=== PATIENT | male | born 1935 | race Caucasian/White ===

== ENCOUNTER 2017-06-16 17:16 | Inpatient (IN) | payer MEDICARE, OTHER ==
[~2017-06-16] VITALS: Ht 175.3 cm; Wt 86.2 kg
[2017-06-16] MEDS ORDERED: IOHEXOL 350 MG/ML 100 ML BTL (for Cath Lab) OTHER ONE (17:39)
[2017-06-16] MEDS ORDERED: IOHEXOL 350 MG/ML 50 ML BTL (for Cath Lab) OTHER ONE (17:39)
[2017-06-16] MEDS ORDERED: MORPHINE SULFATE 4 MG/ML INJ IV PRN (18:00)
[2017-06-16] MEDS ORDERED: SODIUM CHLOR 0.9% 1000 ML INJ 1,000 ML IV SCH (18:00)
[2017-06-16] MEDS ORDERED: ONDANSETRON HCL 4 MG/2 ML VIAL IV PUSH PRN (18:00)
[2017-06-16] MEDS ORDERED: LORazepam 2 MG/ML VIAL IV PRN (18:00)
[2017-06-16] MEDS ORDERED: ACETAMINOPHEN/HYDROcodone 325 MG/5 MG TAB PO PRN (18:00)
[2017-06-16 20:07] VITALS: BP 131/69; PULSE 80; RESP 18; TEMP 97.5; O2SAT 95
[2017-06-16] MEDS ORDERED: ASPIRIN EC 81 MG TABEC PO SCH (20:30)
--- NOTE | 2017-06-16 20:41 | EKG ---
Date Performed: 06/16/2017 Time Performed: 19:58:17 PTAGE: 81 years EKG: Sinus rhythm MODERATE INTRAVENTRICULAR CONDUCTION DELAY Possible Anteroseptal myocardial infarction Nonspecific S T and T wave abnormalities ABNORMAL ECG NO PREVIOUS TRACING DOCTOR: Naun Carlson Interpretating Date/Time 06/16/2017 20:39:06
--- NOTE | 2017-06-16 21:01 | MB ---
cc: LEOLA REYNOSO M.D. DATE OF CONSULTATION 06/16/[address]-segment changes after hernia repair today. HISTORY OF PRESENT ILLNESS The patient is a very pleasant 81-year-old white male with no major past medical history who underwent uncomplicated bilateral hernia repair today by Dr. Grove. Apparently after surgery ST-segment changes were seen on monitoring. 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 He denies any recent chest pains, shortness of breath, dizziness, syncope, near-syncope, palpitations, pedal edema, paroxysmal nocturnal dyspnea. At the present time he is resting comfortably feeling "great". PAST MEDICAL HISTORY None MEDICATIONS AT HOME None ALLERGIES NO KNOWN DRUG ALLERGIES. FAMILY HISTORY Noncontributory; there is no family history of cardiac disease. SOCIAL HISTORY The patient denies any history of alcohol, tobacco abuse. REVIEW OF SYSTEMS As in the history of present illness otherwise negative or noncontributory. He also denies headache, abdominal pain, melena, dyspepsia, bright red blood per rectum, cough, fevers. PHYSICAL EXAMINATION VITAL SIGNS: Blood pressure is pending. Heart rate 70, respirations 15. GENERAL: In general he is a well-developed, well-nourished white male in no acute distress. HEENT: On HEENT examination jugular venous pressure is normal. Carotid pulses are 2+ bilaterally and without bruits. LUNGS: Examination of the chest reveals unlabored respiratory effort with clear lung clemens. CARDIOVASCULAR: On cardiac examination he has a regular rhythm and rate without S3-S4 or murmur. ABDOMEN: On abdominal examination he has a soft, nontender abdomen. Bowel sounds are present. There is no definite hepatosplenomegaly. EXTREMITIES: Examination of extremities reveals no clubbing, cyanosis or edema. Peripheral pulses are normal throughout. LABORATORY DATA Includes troponin 2.43. EKG is pending. IMPRESSION Possible myocardial infarction in this 81-year-old white male with no major past medical history status post inguinal hernia repair today. At this time the patient is completely asymptomatic. He has no coronary artery disease risk factors except for advanced age. EKG is pending. By exam. There is no definite evidence for congestive heart failure. He apparently has no history of renal insufficiency. RECOMMENDATIONS 1. Transfer the patient to a monitored cardiac floor. 2. Initiate beta cristine and DEVIKA inhibitor therapy as well as daily aspirin if okay from a surgical standpoint. 3. Check a 2-D echo to assess his left ventricular function. 4. Await the EKG. 5. Check serial cardiac enzymes; consider cardiac catheterization in the next two days. Leola Reynoso MD GHCatia/KK /7:56 PM /8:52 PM MTDD
[2017-06-16] MEDS: CARVEDILOL 3.125 MG TAB PO SCH (21:19)
[2017-06-16 22:23] LABS: CREATINE KINASE 257 U/L (39-308)
[2017-06-16 22:40] LABS: CKMB 20.5 NG/ML (0.5-3.6)
[2017-06-16 23:28] VITALS: PULSE 77
[2017-06-17] VITALS (17 sets, daily range): BP systolic 117–137; BP diastolic 61–81; PULSE 61–81; RESP 16–18; TEMP 96.7–98.7; O2SAT 95–98
[2017-06-17] MEDS: SODIUM CHLOR 0.9% 1000 ML INJ 1,000 ML IV SCH ×2 (08:08→17:52)
--- NOTE | 2017-06-17 08:12 | PD.CARD.PN ---
Subjective Subjective Remarks No CP, dyspnea, dizziness, palpitations. Objective Medications Item Value Date Time Enalapril Maleate 2.5 mg 06/17/17 0900 (Vasotec) DAILY/PO Carvedilol 3.125 mg 06/16/172099 (Coreg) Q12HR/PO 06/16/172118 Item Value Date Time Enalapril Maleate 2.5 mg 06/17/17 0900 (Vasotec) DAILY/PO Carvedilol 3.125 mg 06/16/172099 (Coreg) Q12HR/PO 06/16/172118 Current Medications Medications (Trade) Dose Ordered Sig/Una Route Start Time Stop Time Status Last Admin (Zofran Inj) 4 mg Q6H PRN IV PUSH 06/16/17 18:00 (Ativan Inj) 1 mg Q6H PRN IV 06/16/17 18:00 (Gilbert 5-325 Mg) 1 tab Q4H PRN PO 06/16/17 18:00 (Morphine Inj) 3 mg Q2H PRN IV 06/16/17 18:00 Sodium Chloride 1,000 ml @ 0 mls/hr Q0M IV 06/16/17 18:00 (Flu (Quadrivalent) Vaccine Inj) 0.5 ml ONCE ONCE IM 06/17/17 10:00 06/17/17 10:01 (Pneumovax-23 Inj) 25 mcg ONCE ONCE IM 06/17/17 10:00 06/17/17 10:01 (Coreg) 3.125 mg Q12HR PO 06/16/17 21:00 06/16/17 21:19 (Vasotec) 2.5 mg DAILY PO 06/17/17 09:00 (Ecotrin Ec) 81 mg DAILY PO 06/16/17 20:30 Future Hold Vital Signs / I&O Vital Signs Date Time Temp Pulse Resp B/P (MAP) Pulse Ox O2 Delivery O2 Flow Rate FiO2 06/17/17 04:00 77 06/17/17 00:00 96.9 81 18 126/61 (82) 95 06/16/17 23:28 77 06/16/17 20:07 97.5 80 18 131/69 (89) 95 I/O 06/16/17 06/16/17 06/16/17 06/17/17 06/17/17 06/17/17 07:00 15:00 23:00 07:00 15:00 23:00 Output Total 450 ml Balance -450 ml Output Urine Total 450 ml Bladder Scan Volume Amount 298 ml Physical Exam GENERAL: Well developed, well nourished. No acute distress. HEENT: Jugular venous pressure is normal. CHEST: Lungs clear to auscultation bilaterally. Unlabored respiratory effort. CARDIAC: Regular rate and rhythm without S3, S4, or murmur. ABDOMEN: Soft, nontender, no hepatosplenomegaly. Bowel sounds present. EXTREMITIES: No clubbing, cyanosis, or edema. Laboratory Laboratory Tests Test 06/16/17 18:33 Total Creatine Kinase 257 U/L Creatine Kinase MB 20.5 NG/ML Troponin I 2.43 NG/ML Assessment and Plan Problem List: (1) Non-ST elevation NM (NSTEMI) ICD Codes: I21.4 - Non-ST elevation (NSTEMI) myocardial infarction Status: Acute Plan: Stable overnight. Cardiac enzymes clearly consistent with NSTEMI. Repeat enzymes pending. Patient remains completely asymptomatic. Discussed at great length with patient and his implications of the abnormal enzymes, high likelihood of underlying severe CAD, and my recommendation for further evaluation with a heart catheterization. Nature of procedure, risks outlined. REC cath today, though can hold off if from a surgical standpoint better to wait to administer antiplatelet/anticoagulation drugs needed for coronary stenting continue beta cristine, DEVIKA-I, increase doses await 2D echo Code Status full code Discussed Condition With patient and , at length Shoaib Berry MD Jun 17, 2017 08:12
[2017-06-17] MEDS ORDERED: diphenhydrAMINE HCL 50 MG CAP PO SCH (08:15)
[2017-06-17] MEDS ORDERED: DIAZEPAM 10 MG TAB PO SCH (08:15)
[2017-06-17] MEDS ORDERED: ASPIRIN 325 MG TAB PO SCH (08:15)
[2017-06-17] MEDS: ENALAPRIL MALEATE 2.5 MG TAB PO SCH (09:00)
[2017-06-17] MEDS: CARVEDILOL 3.125 MG TAB PO SCH ×2 (09:09→21:08)
[2017-06-17] MEDS ORDERED: INFLUENZA VIRUS VACCINE (QUADRIVALENT) 0.5 ML SYR IM ONE (10:00)
[2017-06-17] MEDS ORDERED: PNEUMOCOCCAL POLYVALENT INJ 25 MCG/0.5 ML SYR IM ONE (10:00)
[2017-06-17 13:25] LABS: BICARBONATE 22.4 MEQ/L (21.0-32.0); POTASSIUM 3.9 MEQ/L (3.5-5.1)
[2017-06-17 13:32] LABS: APTT (PATIENT) 21.1 SEC (24.3-30.1); INTERNATIONAL NORMALIZED RATIO 1.1 RATIO; PROTHROMBIN TIME - PATIENT 11.9 SEC (9.8-11.6)
[2017-06-17] MEDS ORDERED: NITROGLYCERIN INJ 5 ML ONE (13:36)
[2017-06-17] MEDS ORDERED: HEPARIN SODIUM - IV 10,000 UNITS/10 ML VIAL ONE (13:36)
[2017-06-17] MEDS ORDERED: MIDAZOLAM HCL 2 MG/2 ML VIAL ONE (13:36)
[2017-06-17] MEDS ORDERED: VERAPAMIL HCL 5 MG/2 ML VIAL ONE (13:36)
[2017-06-17] MEDS ORDERED: HEPARIN-NS/PF INJ 1,000 ML ONE ×2 (13:37→14:48)
[2017-06-17 13:45] LABS: CKMB 18.6 NG/ML (0.5-3.6)
--- NOTE | 2017-06-17 15:13 | HHI.PR ---
Subjective Subjective Notes Resting in bed Going for heart cath today at 1:45 Objective Vitals/I&O Vital Signs Date Time Temp Pulse Resp B/P (MAP) Pulse Ox O2 Delivery O2 Flow Rate FiO2 06/17/17 13:02 66 06/17/17 11:28 98.7 16 117/66 (83) 96 Labs Laboratory Tests Test 06/16/17 18:33 06/17/17 12:25 Total Creatine Kinase 257 404 Creatine Kinase MB 20.5 18.6 Troponin I 2.43 5.58 Prothrombin Time 11.9 Prothromb Time International Ratio 1.1 Activated Partial Thromboplast Time 21.1 Blood Urea Nitrogen 22 Creatinine 0.85 Random Glucose 97 Calcium Level 8.4 Sodium Level 140 Potassium Level 3.9 Chloride Level 108 Carbon Dioxide Level 22.4 Anion Gap 10 Estimat Glomerular Filtration Rate 87 Creatine Kinase MB % 4.6 Cardiovascular: Regular Lungs: Clear Abdomen: Other (lap sites c/d/i ) Extremities: No edema A/P Assessment and Plan 81 year old male POD1 laparoscopic bilateral inguinal hernia in outpatient surgery center; post op EKG changes -Cardiology following -Going for heart cath today -NPO Attending Note - Dr. Grove Discussed above with patient and at 12 noon. Had elevated troponins consistent with NSTEMI. He has had no chest pain or EKG changes. Steristrips dry and intact; minimal pain from hernia repair. Discussed with both Dr. Berry (cardiology) and Dr. Cedeno (CT surgery) this evening. 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 Will keep in house while workup continues. Will feed tonight and keep IVF going to protect renal function. The exam, history, and the medical decision-making described in the above note were completed with the assistance of the mid-level provider. I reviewed and agree with the findings presented. I attest that I had a [id number] encounter with the patient on the same day, and personally performed and documented my assessment and findings in the medical record. Ellen Leach Jun 17, 2017 15:13 Tim Grove MD Jun 17, 2017 19:04
--- NOTE | 2017-06-17 15:23 | CATHPROC ---
[facility] HIS Report Study Information Study Number Admission Scheduled Start Study Start [id number] Jun 16 2017 5:38PM 06/17/2017 Jun 17 2017 1:26PM [place] [facility] Cardiac Catheterization Admit Source Facility Department Other [facility] - Manager Strategy & Account Physician and Clinical Staff Initial Shoaib Tejada Registered Nurse Obstetrics Tarsha Sanchez BSN Other cathlab, cathlab Recorder Foreign Castellano RCIS(BS) Carlos Daniels RCIS(BS) Procedures Performed Procedure Location (Site) Vessel Name Angiogram LV Asc. Aorta (A) Angiogram LV LV Ventricle Coronary Angiograms LCA Left Coronary Coronary Angiograms RCA Right Coronary L Heart Cath Wire insertion Radial (right) Radial Art. Equipment Time Hematologist Oncologist Description Size Mfg Part Number Used/Scraped TRANSDUCER, TRUWAVE [id number] 14:07 JACOBS ERICKSON * Used W/STOCKCOCK *[id number] TRANSDUCER, TRUWAVE [id number] 14:51 JACOBS ERICKSON * Used W/STOCKCOCK *[id number] *[id number] *[id number] *[id number] WIRE, HYDROSTEER 150CM [id number] 15:01 DAIG/[employer]. [employer] 150CM Used ANGLED GLIDE *[id number] WIRE, HYDROSTEER 150CM [id number] 14:09 DAIG/[employer] 150CM Used ANGLED GLIDE *[id number] 871251 14:07 MALLINCKRODT SYRINGE, ANGIOMAT 150ML 150ML *[id number] Used 2SUB [id number] 14:51 MALLINCKRODT SYRINGE, ANGIOMAT 150ML 150ML *[id number] Used 2SUB MEDICAL CONCEPT DRAPE, RADIAL FEMORAL FULL 14:51 * D2355 *[id number] Used DEVELOPMENT BODY MEDICAL CONCEPT DRAPE, RADIAL FEMORAL FULL 14:07 * D2355 *[id number] Used DEVELOPMENT BODY [id number] 14:07 MEDLINE INDUSTRIES PACK, CCL CUSTOM * Used *[id number] 14:51 MEDLINE INDUSTRIES PACK, CCL CUSTOM * Used *[id number] 14:07 MEDLINE INDUSTRIES SUPPORT, ARTERIAL ADULT 80173 *[id number] Used 14:51 MEDLINE INDUSTRIES SUPPORT, ARTERIAL ADULT 61275 *[id number] Used [id number] 14:51 MEDLINE PACER PEN, SKIN DUAL W/ RULER * Used *[id number] 14:07 MEDLINE PACER PEN, SKIN DUAL W/ RULER * Used *[id number] BAND, RADIAL COMPRESSION TR [id number] 15:14 [place] 29CM Used LARGE 29 *[id number] SHEATH, FR6 RADIAL PRELUDE 13:32 [facility] Eqvilibria FR 6 [id number] Used EASE 11CM [id number] 14:07 YR.MRKT MEDICAL WIRE, EXCHANGE 260CM 3MMJ 260CM Used *[id number] 14:51 YR.MRKT MEDICAL WIRE, EXCHANGE 260CM 3MMJ 260CM Used *[id number] 14:07 NAMIC MANIFOLD, 4 PORT * Used *[id number] [id number] 14:51 NAMIC MANIFOLD, 4 PORT * Used *9438818 [id number] 15:02 NAMIC TUBING, HIGH PRESSURE 48" 48" Used *0772562 14:51 [employer]COMED OMNIPAQUE, 350 MG, 150ML 150ML [id number] Used 15:09 [employer]COMED OMNIPAQUE, 350 MG, 150ML 150ML [id number] Used 14:07 [employer]COMED OMNIPAQUE, 350 MG, 150ML 150ML [id number] Used [id number] 14:51 [employer] MEDICAL BLANKET,WARM AIR CCL * Used *[id number] [id number] 14:07 [employer] MEDICAL BLANKET,WARM AIR CCL * Used *[id number] CATHETER, FR5 OPTITORQUE [id number] 14:08 [employer] MEDICAL FR 5 Used RADIAL TIG 4.0 *[id number] Equipment Model, Serial, Lot Number and Expiration Data Description Model Number Serial Number Lot Number Expiration Date WIRE, HYDROSTEER 150CM [id number] 02-06-2020 ANGLED GLIDE WIRE, HYDROSTEER 150CM [id number] 03-08-2020 ANGLED GLIDE History: Current Medications Medication Dosage/Unit Route Frequency Last Date/Time Taken Beta Kennedy ASA History: Allergies Allergy Reaction No Known Allergies History: Risk Factors Family History of Hypertension Dyslipidemia Previous NM Previous Heart Failure Premature CAD No No No No No Prior Valve Prior PCI Prior CABG Surgery No No No Cerebrovascular Peripheral Artery Chronic Lung On Dialysis Diabetes Disease Disease Disease No No No No No History: Stress Tests Stress or Imaging Studies Performed No History: Other Current Smoker No Labs Hgb (g/dl) 11.60-17.00 Not Drawn Glucose (mg/dl) BUN (mg/dl) Creatinine (mg/dl) BUN:Creatinine (1:x) 74.00-106.00 7.00-18.00 0.50-1.30 10.00-20.00 97 22 0.8 27.5 Na (meq/l) K (meq/l) Cl (meq/l) CO2 (mmol/L) Ca (mg/dl) 136.00-145.00 3.50-5.10 98.00-107.00 21.00-32.00 8.50-10.10 140 3.9 108 22.4 8.4 INR (PTT:PT) 0.90-1.10 1.1 Troponin I (ng/ml) CPK (u/l) CPK-MB (ng/ML) 0.02-0.05 26.00-308.00 0.50-3.60 2.4 257 20.5 Medication Medication Total Dose (Bolus/Oral) Medication Total Dosage/Unit 1% XYLOCAINE 3 mL FENTANYL 50 mcg RADIAL COCKTAIL 5 mL (Bolus) VERSED 2 mg Medications (Bolus/Oral) Medication Time Given Dosage/Unit Administered By Reason VERSED 06/17/2017 2:04:00 PM 2 mg Tarsha Sanchez 2 mg VERSED given in lab by Tarsha Sanchez BSN in Right Wrist via Peripheral IV. Ordered by Shoaib Christopher. FENTANYL 06/17/2017 2:04:08 PM 50 mcg Tarsha Sanchez 50 mcg FENTANYL given in lab by Tarsha Sanchez BSN in Right Wrist via Peripheral IV. Ordered by Shoaib Berry. 1% XYLOCAINE 06/17/2017 2:05:06 PM 3 mL Shoaib Berry 3 mL 1% XYLOCAINE given in lab by Shoaib Berry in Right Radial via Subcutaneous. Ntg 200mcg Verapamil 2.5mg Heparin RADIAL COCKTAIL 06/17/2017 2:06:54 PM 5 mL (Bolus) Shoaib Berry 2500U 5 mL (Bolus) RADIAL COCKTAIL given in lab by Shoaib Berry in Right Radial via Radial. Using [Solution Name]. Reason: Ntg 200mcg Verapamil 2.5mg Heparin 2500U. Medication (Drip) Medication Time Given Dosage/Unit Concentration/Unit Diluent (ml) Solution IV Solutions 06/17/2017 1:31:09 PM 0 mL (IV) 500 NaCl .9 Patient arrived on IV Solutions in Right Wrist via Peripheral IV. Pump/Drip Flow = 20 ml/hr using NaC l .9. Ordered by Shoaib Berry. Initial Case Assessment Cardiovascular HR Rhythm NIBP Chest Pain 65 nsr 147/78 0 Edema Present Skin color Skin None Normal Warm Dry Circulatory - Right Pulses Dorsalis Pedis Femoral Radial 2 2 2 Scale (0,1,2,3,4,d) Scale (0,1,2,3,4,d) Neurological State Oriented to time-place- Alert Moves all extremities person Respiration - General Respiration Rate SpO2 (%) (B/min) 15 95 Final Case Assessment Cardiovascular HR Rhythm NIBP Chest Pain 65 nsr 106/55 0 Edema Present Skin color Skin None Normal Warm Dry Circulatory - Right Pulses Dorsalis Pedis Femoral Radial 2 2 2 Scale (0,1,2,3,4,d) Scale (0,1,2,3,4,d) Neurological State Oriented to time-place- Alert Moves all extremities person Respiration - General Respiration Rate SpO2 (%) (B/min) 15 93 Chronological Log Time Study Chronological Log 13:28:32 Patient arrived via Bed. 13:28:45 Patient Name, D.O.B, / Armband Verified By R.N. 13:30:51 Consent signed by the physician and the patient and verified by the Manager Strategy & Account staff. 13:30:52 Pre-op and post- op instructions given; patient acknowledges understanding of instructions. 13:30:53 Verbal Stimulation=2 Physical Stimulation=2 Airway=2 Respiration=2 TOTAL=8. (0=absent, 1=li mited, 2=present) 13:30:54 Presedation assessment performed by Manager Strategy & Account RN. 13:30:54 Allens test performed on the right radial and ulnar artery. POSITIVE. 13:31:02 Immediate Presedation assesment performed by physician. 13:31:03 Skin Breakdown- none per patient 13:31:03 Patient has been NPO for More than 6Hrs. 13:31:07 Patient Warmer Placed on the Table. 13:31:08 Willie Prominences Protected 13:31:09 A # 20 IV was noted in the Wrist (right). Grade = 0 Patient arrived on IV Solutions in Right Wrist via Peripheral IV. Pump/Drip Flow = 20 ml/hr usi ng NaCl .9. Ordered by 13:31:09 Shoaib Berry. 13:31:10 History and physical on the chart or being dictated. Vitals capture started with the following parameters, Patient=Adult, Interval=5 min, Initial Pr dcamcv=980 mmHg, 13:35:17 Deflation Rate=5 mmHg, Cuff placed on Left Arm 13:35:18 Reference ECG taken Assessment: Initial Case, HR=65 BPM, Rhythm=nsr, VVEQ=379/78 mmhg, Chest Pain=0, Edema=None, Co ashleigh=Normal, Skin = Warm, Dry 13:35:20 Right Pulses: Kam Ped=2, Femoral=2, Radial=2 Neurological: State=Alert, Ox3, LABOY Respiration: Resp=15 B/min, SpO2=95 % 13:36:38 HR=69 bpm, WMRG=509/78 mmhg, SpO2=96 %, Resp=14 B/min, Pain=0, Deedee=10, Jerome=2 13:41:47 HR=60 bpm, WDSU=753/70 mmhg, SpO2=96.0 %, Resp=15 B/min, Pain=0, Deedee=10, Jerome=2 13:45:59 HR=61 bpm, QTQU=427/72 mmhg, SpO2=96.0 %, Resp=11 B/min, Pain=0, Deedee=10, Jerome=2 13:49:04 Right Radial and groin(s) prepped with 2% chlorhexidine, and draped after a 3 min. waiting time. 13:51:00 HR=63 bpm, EBTF=148/78 mmhg, SpO2=97.0 %, Resp=19 B/min, Pain=0, Deedee=10, Jerome=2 13:52:30 MD paged 13:53:46 Pressure channel 1 zeroed. 13:56:01 HR=62 bpm, CCOL=019/73 mmhg, SpO2=96.0 %, Resp=15 B/min, Pain=0, Deedee=10, Jerome=2 13:57:12 MD responded 14:01:00 HR=62 bpm, DPCV=075/72 mmhg, SpO2=96.0 %, Resp=16 B/min, Pain=0, Deedee=10, Jerome=2 14:02:14 MD arrived. 14:02:17 Contrast Scanned 14:02:18 Immediate Presedation assesment performed by physician. 14:04:00 2 mg VERSED given in lab by Tarsha Sanchez BSN in Right Wrist via Peripheral IV. Orde red by Shoaib Berry. 14:04:08 50 mcg FENTANYL given in lab by Tarsha Sanchez BSN in Right Wrist via Peripheral IV. Ordered by Shoaib Berry. Time Out. Correct patient, correct procedure, correct physician, power injector not loaded with contrast with surgical 14:04:17 team present. Time Out Concurred by MD and individual staff in procedure. 14:04:28 Case Start 14:04:30 Verbal Stimulation=2 Physical Stimulation=2 Airway=2 Respiration=2 TOTAL=8. (0=absent, 1=li mited, 2=present) 14:05:06 3 mL 1% XYLOCAINE given in lab by Shoaib Berry in Right Radial via Subcutaneous. 14:05:57 HR=69 bpm, WNKQ=018/75 mmhg, SpO2=93.0 %, Resp=16 B/min, Pain=0, Deedee=10, Jerome=2 14:06:37 Access site was Right Radial Artery. A SHEATH, FR6 RADIAL PRELUDE EASE 11CM FR 6 was advanced into the Radial (right) using the Perc utaneous 14:06:44 technique. 5 mL (Bolus) RADIAL COCKTAIL given in lab by Shoaib Berry in Right Radial via Radial. Using [So lution Name]. Reason: 14:06:54 Ntg 200mcg Verapamil 2.5mg Heparin 2500U. A CATHETER, FR5 OPTITORQUE RADIAL TIG 4.0 FR 5 was advanced over a wire. OMNIPAQUE, 350 MG, 150 ML 150ML 14:07:42 was used for injections. 14:09:24 A WIRE, HYDROSTEER 150CM ANGLED GLIDE 150CM was inserted via Radial (right). 14:10:18 Wire removed Recorded Pressure: Ao, HR=71, Condition=Condition 1 14:10:22 (Aorta) Ao 100/53/76 14:10:31 The LCA was injected and visualized at various angles. OMNIPAQUE, 350 MG, 150ML 150ML used . 14:10:58 HR=65 bpm, LZNO=662/63 mmhg, SpO2=91.0 %, Resp=15 B/min, Pain=0, Deedee=10, Jerome=2 14:12:12 The RCA was injected and visualized at various angles. OMNIPAQUE, 350 MG, 150ML 150ML used . After removing the current catheter a JL 3.5 INFINITI CATHETER FR 6 was advanced over a WIRE, E XCHANGE 260CM 14:13:11 3MMJ 260CM. 14:15:42 The LCA was injected and visualized at various angles. OMNIPAQUE, 350 MG, 150ML 150ML used . 14:15:57 HR=66 bpm, KHIH=985/62 mmhg, SpO2=88.0 %, Resp=18 B/min, Pain=0, Deedee=10, Jerome=2 14:20:56 HR=66 bpm, TUPT=288/70 mmhg, SpO2=88.0 %, Resp=15 B/min, Pain=0, Deedee=10, Jerome=2 14:23:28 Catheter was removed 14:26:01 HR=71 bpm, EJLK=961/65 mmhg, SpO2=94.0 %, Resp=17 B/min, Pain=0, Deedee=10, Jerome=2 14:26:23 XRAY malfunction. Rebooting xray system. 14:30:58 HR=64 bpm, XEGV=211/64 mmhg, SpO2=91.0 %, Resp=19 B/min, Pain=0, Deedee=10, Jerome=2 14:36:01 HR=62 bpm, PPRD=894/61 mmhg, SpO2=93.0 %, Resp=19 B/min, Pain=0, Deedee=10, Jerome=2 14:39:53 xray not functioning, moving patient to lab 5. 14:39:55 Sterile dressing applied to site 14:41:00 HR=66 bpm, PCAK=058/74 mmhg, SpO2=95 %, Resp=14 B/min, Pain=0, Deedee=10, Jerome=2 14:42:05 Vitals capture stopped. 14:42:15 Patient moved to stretcher 14:44:44 Patient arrived via Bed. 14:44:48 Patient Name, D.O.B, / Armband Verified By R.N. 14:44:49 Consent signed by the physician and the patient and verified by the Manager Strategy & Account staff. Vitals capture started with the following parameters, Patient=Adult, Interval=5 min, Initial Pr useoeb=808 mmHg, 14:47:57 Deflation Rate=5 mmHg, Cuff placed on Right Arm 14:47:58 Reference ECG taken 14:48:35 HR=73 bpm, VKCA=207/69 mmhg, SpO2=94.0 %, Resp=17 B/min, Pain=0, Deedee=10, Jerome=2 14:49:59 Right Radial prepped with 2% chlorhexidine, and draped after a 3 min. waiting time. 14:53:39 HR=65 bpm, GRON=593/70 mmhg, SpO2=97.0 %, Resp=20 B/min, Deedee=10, Jerome=2 14:57:55 Pressure channel 1 zeroed. Time Out. Correct patient, correct procedure, correct physician, power injector loaded with con trast with surgical team 14:58:19 present. Time Out Concurred by MD and individual staff in procedure. 14:58:28 Case Start 14:58:40 HR=62 bpm, MEEM=740/70 mmhg, SpO2=97.0 %, Resp=19 B/min, Pain=0, Deedee=10, Jerome=2 A JL 3.5 INFINITI CATHETER FR 6 was advanced over a wire. OMNIPAQUE, 350 MG, 150ML 150ML was us ed for 15:00:26 injections. 15:00:51 A WIRE, HYDROSTEER 150CM ANGLED GLIDE 150CM was inserted via Radial (right). 15:03:39 HR=63 bpm, KOSP=995/64 mmhg, SpO2=96.0 %, Resp=17 B/min, Pain=0, Deedee=10, Jerome=2 15:05:00 Wire removed 15:05:00 The LCA was injected and visualized at various angles. OMNIPAQUE, 350 MG, 150ML 150ML used . After removing the current catheter a PIGTAIL STR INFINITI CATHETER FR 6 was advanced over a WI RE, EXCHANGE 15:07:00 260CM 3MMJ 260CM. 15:08:28 The LV was injected at 10 cc/sec for a total of 30. OMNIPAQUE, 350 MG, 150ML 150ML used. Recorded Pressure: LV, HR=58, Condition=Condition 1 15:08:38 (Left Ventricle) LV 114/8/18 15:08:40 HR=58 bpm, GBQX=502/55 mmhg, SpO2=95.0 %, Resp=16 B/min, Pain=0, Deedee=10, Jerome=2 Recorded Pressure: LV, Ao, HR=53, Condition=Condition 1 15:10:36 (Left Ventricle) LV 127/-2/34, (Aorta) Ao 116/44/75 15:10:52 The Asc. Aorta (A) was injected at 20 cc/sec for a total of 40. OMNIPAQUE, 350 MG, 150ML 15 0ML used. 15:11:48 Catheter was removed 15:11:57 Case End Assessment: Final Case, HR=65 BPM, Rhythm=nsr, YUSD=437/55 mmhg, Chest Pain=0, Edema=None, [place] r=Normal, Skin = Warm, Dry 15:12:02 Right Pulses: Kam Ped=2, Femoral=2, Radial=2 Neurological: State=Alert, Ox3, LABOY Respiration: Resp=15 B/min, SpO2=93 % 15:12:32 Radial Compression Device Used. 12 mLs of air placed in closure device. Affected hand 95 % O2 saturation. 15:12:41 Sterile dressing applied to site 15:12:41 No case complications noted. 15:12:42 Cine recording checked. 15:12:42 Bedside Report will be given. 15:12:44 Contrast Scanned 15:12:44 Verbal Stimulation=2 Physical Stimulation=2 Airway=2 Respiration=2 TOTAL=8. (0=absent, 1=li mited, 2=present) 15:12:50 A Left Heart Cath was performed. 15:14:12 HR=67 bpm, FTDG=095/73 mmhg, SpO2=98.0 %, Resp=15 B/min, Pain=0, Deedee=10, Jerome=2 15:18:40 HR=62 bpm, NVQI=283/78 mmhg, SpO2=96.0 %, Resp=12 B/min, Pain=0, Deedee=10, Jerome=2 15:19:29 Vitals capture stopped. 15:19:41 Patient moved to stretcher End Study - Contrast Media Used In Study Contrast Total Opened (mL) Total Used (mL) Total Wasted (mL) Omnipaque 160 160 0 End Study - Maximum Contrast Load Max Contrast Load (mL) 875.0 End Study - Radiation Exposure Fluoro Time (minutes) 3.2 End Study - Patient Disposition Complications Transferred To Interventional Outcome No Telemetry Bed No attempt made
[2017-06-17 15:34] LABS: AUTOMATED NEUTROPHIL # 9.1 TH/MM3 (1.8-7.7); BASOPHIL % 0.1 % (0.0-2.0); HEMATOCRIT 39.4 % (39.0-51.0); HEMO FLAGS DIFF FINAL; LYMPH % 9.2 % (9.0-44.0); MEAN CELL VOLUME 95.6 FL (80.0-100.0); MEAN CORPUSCULAR HGB CONC 33.5 % (32.0-36.0); MONO % 8.5 % (0.0-8.0); NEUT % 82.2 % (16.0-70.0); PLATELET COUNT 129 TH/MM3 (150-450); RED BLOOD COUNT 4.13 MIL/MM3 (4.50-5.90)
--- NOTE | 2017-06-17 16:21 | ECHRPT ---
Indication: WI CONCLUSIONS Mildly dilated left ventricle. Wall thickness is normal. The left ventricular systolic function is severely reduced with an estimated ejection fraction in th e range of 30-35%. There is global left ventricular dysfunction. Mitral annular calcification is present. Trace mitral valve regurgitation. Trace aortic valve regurgitation. Aortic valve sclerosis is present. BP: / HR: Rhythm: MEASUREMENTS (Male / Female) Normal Values Technical Quality: 2D ECHO LV Diastolic Diameter PLAX 5.1 cm 4.2 - 5.9 / 3.9 - 5.3 cm LV Systolic Diameter PLAX 4.4 cm IVS Diastolic Thickness 1.0 cm 0.6 - 1.0 / 0.6 - 0.9 cm LVPW Diastolic Thickness 0.8 cm 0.6 - 1.0 / 0.6 - 0.9 cm LV Relative Wall Thickness 0.3 RV Internal Dim ED PLAX 2.6 cm LA Systolic Diameter LX 3.2 cm 3.0 - 4.0 / 2.7 - 3.8 cm DOPPLER AV Peak Velocity 105.0 cm/s AV Peak Gradient 4.4 mmHg Mitral E Point Velocity 58.9 cm/s Mitral A Point Velocity 75.0 cm/s Mitral E to A Ratio 0.8 TR Peak Velocity 102.0 cm/s TR Peak Gradient 4.2 mmHg FINDINGS LEFT VENTRICLE Mildly dilated left ventricle. Wall thickness is normal. The left ventricular systolic function is severely reduced with an estimated ejection fraction in th e range of 30-35%. There is global left ventricular dysfunction. RIGHT VENTRICLE Normal right ventricular size and systolic function. LEFT ATRIUM The left atrial size is normal. RIGHT ATRIUM The right atrial size is normal. ATRIAL SEPTUM Normal atrial septal thickness without atrial level shunting by limited color doppler interrogation. AORTA The aortic root and proximal ascending aorta are normal in size on limited imaging. MITRAL VALVE Mitral annular calcification is present. Trace mitral valve regurgitation. AORTIC VALVE Trace aortic valve regurgitation. Aortic valve sclerosis is present. TRICUSPID VALVE Structurally normal tricuspid valve. No tricuspid valve stenosis or regurgitation. PULMONARY VALVE The pulmonary valve is not well visualized. VESSELS The inferior vena cava is normal in size. PERICARDIUM No pericardial effusion. Dawood Epperson MD (Electronically Signed) Final Date:17 June 2017 16:21
--- NOTE | 2017-06-17 17:17 | RADRPT ---
EXAM DATE/TIME: 06/17/2017 16:25 [facility] COMPARISON: No previous studies available for comparison. INDICATIONS : Evaluate for pneomonia, pneumothorax, or any other communicable diseases. MEDICAL HISTORY : None. SURGICAL HISTORY : None. ENCOUNTER: Initial ACUITY: 1 day PAIN SCORE: 0/10 LOCATION: Bilateral chest FINDINGS: A single view of the chest demonstrates the lungs to be symmetrically aerated without evidence of mas s, infiltrate or effusion. The cardiomediastinal contours are unremarkable. Osseous structures are intact. CONCLUSION: No acute disease. Jigar Whitney MD on June 17, 2017 at 17:16 Board Certified Radiologist. This report was verified electronically.
--- NOTE | 2017-06-17 18:46 | MA ---
cc: LEOLA REYNOSO M.D. DATE 06/17/17 PROCEDURE Left heart catheterization, selective coronary angiography, left ventriculography, aortic root injection. PROCEDURE NOTE The patient was brought to the cardiac catheterization laboratory in a fasting state after having signed informed consent. The right radial region was prepped and draped as per policy and anesthetized with 1% lidocaine. Arterial access was obtained via the right radial artery and a 6-Austrian sheath placed. Coronary arteriography was performed using a [place] catheter to engage the right coronary and Daniel left 3.5 to engage the left main. Aortic root injection and left ventriculography was done using a standard 6-Austrian pigtail. There were no apparent immediate complications. A radial artery compression band was applied to his right wrist at the end of the case to achieve good hemostasis. HEMODYNAMIC RESULTS Left ventricle 120 with an end-diastolic pressure of 20. Aorta 116/44 with a mean of 75. There was no significant transvalvular aortic gradient on pullback of the pigtail catheter. CORONARY ARTERIOGRAPHY The left main appears to be a short vessel with mild distal tapering possibly with up to 15% distal stenosis. The left anterior descending has somewhat eccentric up to 80% stenosis proximally with post stenotic dilatation. The mid-LAD has diffuse disease up to 25% severity. The distal LAD also has a region of up to 30% stenosis. The LAD gives rise to two small to medium sized diagonals, the first of which has mild disease, the second of which probably has at least 60% ostial stenosis. We did do aortic root injection to confirm total occlusion of the left circumflex and verify that it is not originating from an anomalous position. Both coronary arteriography and aortic root injection confirm total occlusion of the left circumflex. There may be late faint filling of a small obtuse marginal seen on an [place] cranial shot. The right coronary artery is totally occluded proximally. There are numerous bridging collaterals supplying the mid to distal vessel which has overall normal flow. LEFT VENTRICULOGRAPHY Contrast injection of the left ventricle reveals global hypokinesis. Ejection fraction is estimated at 30-35%. CONCLUSION 1. Severe three-vessel coronary artery disease. 2. Right dominant system. 3. Status post aortic root injection. 4. Reduced left ventricular systolic function with ejection fraction estimated at 30-35%. DISCUSSION The patient will be referred for bypass surgery. Bypass grafts could be placed to the LAD and right coronary. Consideration could also be made towards grafting of the second diagonal. The left circumflex is probably too small and diseased for grafting. MD YANCY Arreaga/ELIZABETH /3:24 PM /6:43 PM DONALD
--- NOTE | 2017-06-17 20:20 | RADRPT ---
EXAM DATE/TIME: 06/17/2017 19:06 [facility] COMPARISON: No previous studies available for comparison. INDICATIONS : Pre op cardiac surgery. MEDICAL HISTORY : Renal calculi. SURGICAL HISTORY : Bilateral inguinal hernia repair 06/16/17. ENCOUNTER: Initial ACUITY: 1 day PAIN SCORE: 3/10 LOCATION: Bilateral legs. TECHNIQUE: Venous ultrasound of the left and right leg was performed from the inguinal ligament to the proximal calf. Real-time, color Doppler and spectral tracing, compression and augmentation techniques were us ed. FINDINGS: RIGHT LEG: There is normal compressibility of the deep venous system from the inguinal region to the proximal ca lf. No echogenic clot is seen in the lumen of the common femoral, femoral, popliteal, and posterior tibial veins. There is a normal response of the venous system to proximal and distal augmentation an d respiration. LEFT LEG: There is normal compressibility of the deep venous system from the inguinal region to the proximal ca lf. No echogenic clot is seen in the lumen of the common femoral, femoral, popliteal, and posterior tibial veins. There is a normal response of the venous system to proximal and distal augmentation an d respiration. CONCLUSION: Normal examination. Michael Bradford Jr., MD on June 17, 2017 at 20:18 Board Certified Radiologist. This report was verified electronically.
--- NOTE | 2017-06-17 20:21 | RADRPT ---
EXAM DATE/TIME: 06/17/2017 19:15 [facility] COMPARISON: No previous studies available for comparison. INDICATIONS : Pre op cardiac surgery. MEDICAL HISTORY : Renal calculi. SURGICAL HISTORY : Bilateral inguinal hernia repair 06/16/17. ENCOUNTER: Initial ACUITY: 1 day PAIN SCORE: 3/10 LOCATION: Bilateral legs. GREATER SAPHENOUS VEIN THIGH: PROXIMAL: Right 5 mm Left 6 mm MID: Right 4 mm Left 5 mm DISTAL: Right 4 mm Left 4 mm CALF: PROXIMAL: Right 4 mm Left 4 mm MID: Right 3 mm Left 3 mm DISTAL: Right 4 mm Left 4 mm FINDINGS: The venous system of the lower extremities are patent by color Doppler imaging. Measurements of the leg veins (in mm) are listed above. CONCLUSION: Patent greater saphenous veins bilaterally with measurements above. Michael Bradford Jr., MD on June 17, 2017 at 20:19 Board Certified Radiologist. This report was verified electronically.
--- NOTE | 2017-06-17 20:24 | RADRPT ---
EXAM DATE/TIME: 06/17/2017 19:36 [facility] COMPARISON: No previous studies available for comparison. INDICATIONS : Pre op cardiac surgery. MEDICAL HISTORY : Renal calculi. SURGICAL HISTORY : Bilateral inguinal hernia repair 06/16/17. ENCOUNTER: Initial ACUITY: 1 day PAIN SCORE: 3/10 LOCATION: Bilateral neck PEAK SYSTOLIC VELOCITIES (cm/sec): ICA/CCA RATIO: Right: 1.8 Left: 1.2 ICA: Right: 116 Left: 89 CCA: Right: 66 Left: 76 ECA: Right: 205 Left: 78 VERTEBRAL: Right: 45 antegrade Left: 45 antegrade Elevated flow velocities and ICA/CCA ratios have been found to correlate with increased degrees of vessel stenosis, calculated as percentage of diameter relative to a normal segment of distal ICA/CCA FINDINGS: RIGHT CAROTID: Calcified plaque involving the carotid bulb and proximal ICA with less than 50% stenosis of the proxi mal ICA by grayscale analysis. The waveforms are within normal limits. LEFT CAROTID: Calcified plaque involving the carotid bulb and proximal ICA. No significant stenosis is visualized. The waveforms are within normal limits. VERTEBRAL ARTERIES: Antegrade flow is seen in both vertebral arteries. MISCELLANEOUS: None. CONCLUSION: 1. Calcified plaque involving the carotid arteries bilaterally without hemodynamically significant st enosis involving either carotid. 2. Antegrade flow involving both vertebral arteries. Michael Bradford Jr., MD on June 17, 2017 at 20:20 Board Certified Radiologist. This report was verified electronically.
[2017-06-17 21:37] LABS: BLOOD, URINE NEG (NEG); COMMENT (UR) CULT NOT INDICATED; CULTURE IF INDICATED CULT NOT INDICATED; GLUCOSE,URINE NEG (NEG); KETONE, URINE NEG (NEG); MUCUS URINE FEW /lpf (OCC); NITRITE,URINE NEG (NEG); PH, URINE 6.5 (5.0-8.5); URINE COLOR YELLOW (YELLW/STRAW)
[2017-06-18] VITALS (25 sets, daily range): BP systolic 133–156; BP diastolic 72–94; PULSE 64–90; RESP 16–20; TEMP 97.6–99.1; O2SAT 94–97
[2017-06-18] MEDS: SODIUM CHLOR 0.9% 1000 ML INJ 1,000 ML IV SCH (03:52)
[2017-06-18 06:03] LABS: ANION GAP 10 MEQ/L (5-15); AST (GOT) 43 U/L (15-37); BICARBONATE 24.2 MEQ/L (21.0-32.0); BLOOD UREA NITROGEN 22 MG/DL (7-18); CHLORIDE 106 MEQ/L (98-107); GLOMERULAR FILTRATION RATE 82 ML/MIN (>89); POTASSIUM 3.8 MEQ/L (3.5-5.1); SODIUM (NA) 140 MEQ/L (136-145)
[2017-06-18 06:04] LABS: ALT (GPT) 23 U/L (12-78)
[2017-06-18 06:06] LABS: ALKALINE PHOSPHATASE 40 U/L (45-117); HDL CHOLESTEROL 37.5 MG/DL (40.0-60.0); LDL CHOLESTEROL 82 MG/DL (0-99); TOTAL BILIRUBIN ADULT 0.8 MG/DL (0.2-1.0)
--- NOTE | 2017-06-18 07:38 | PD.CARD.PN ---
Subjective Subjective Remarks No CP, dyspnea, dizziness, palpitations. Objective Medications Item Value Date Time Enalapril Maleate 2.5 mg 06/17/17 0900 (Vasotec) DAILY/PO Carvedilol 3.125 mg 06/16/172099 (Coreg) Q12HR/PO 06/16/172118 Enalapril Maleate 2.5 mg 06/17/17 0900 (Vasotec) DAILY/PO 06/17/17 0900 Carvedilol 3.125 mg 06/16/172099 (Coreg) Q12HR/PO 06/17/172107 Current Medications Medications (Trade) Dose Ordered Sig/Una Route Start Time Stop Time Status Last Admin (Zofran Inj) 4 mg Q6H PRN IV PUSH 06/16/17 18:00 (Ativan Inj) 1 mg Q6H PRN IV 06/16/17 18:00 (Ada 5-325 Mg) 1 tab Q4H PRN PO 06/16/17 18:00 (Morphine Inj) 3 mg Q2H PRN IV 06/16/17 18:00 Sodium Chloride 1,000 ml @ 0 mls/hr Q0M IV 06/16/17 18:00 (Coreg) 3.125 mg Q12HR PO 06/16/17 21:00 06/17/17 21:08 (Vasotec) 2.5 mg DAILY PO 06/17/17 09:00 06/17/17 09:00 (Ecotrin Ec) 81 mg DAILY PO 06/16/17 20:30 Future Hold Sodium Chloride 1,000 ml @ 100 mls/hr Q10H IV 06/17/17 08:08 06/22/17 08:07 06/18/17 03:52 (Aspirin) 325 mg PEARL MAKER PO 06/17/17 08:15 06/21/17 08:14 06/17/17 09:09 (Benadryl) 50 mg PEARL MAKER PO 06/17/17 08:15 06/21/17 08:14 (Valium) 10 mg PEARL MAKER PO 06/17/17 08:15 06/21/17 08:14 Vital Signs / I&O Vital Signs Date Time Temp Pulse Resp B/P (MAP) Pulse Ox O2 Delivery O2 Flow Rate FiO2 06/18/17 05:00 64 06/18/17 04:00 97.7 64 18 138/77 (97) 96 06/18/17 04:00 68 06/18/17 03:00 64 06/18/17 02:00 64 06/18/17 01:00 66 06/18/17 00:00 66 06/18/17 00:00 97.6 78 18 143/79 (100) 97 06/17/17 23:00 66 06/17/17 22:00 66 06/17/17 21:00 66 06/17/17 20:00 96.7 69 18 137/68 (91) 97 06/17/17 20:00 68 06/17/17 19:00 64 06/17/17 18:07 74 06/17/17 17:22 63 06/17/17 16:10 65 06/17/17 16:09 18 06/17/17 15:43 73 06/17/17 15:43 98.7 68 16 134/81 (98) 98 06/17/17 13:02 66 06/17/17 12:09 64 06/17/17 11:28 68 06/17/17 11:28 98.7 65 16 117/66 (83) 96 06/17/17 10:00 61 06/17/17 09:00 63 06/17/17 08:30 98.7 80 18 128/64 (85) 95 06/17/17 08:30 72 I/O 06/17/17 06/17/17 06/17/17 06/18/17 06/18/17 06/18/17 07:00 15:00 23:00 07:00 15:00 23:00 Intake Total 1240 ml 1343 ml Output Total 450 ml 825 ml Balance 790 ml 518 ml Intake Oral 240 ml 240 ml IV Total 1000 ml 1103 ml Output Urine Total 450 ml 825 ml # Bowel Movements 0 0 Physical Exam GENERAL: Well developed, well nourished. No acute distress. HEENT: Jugular venous pressure is normal. CHEST: Lungs clear to auscultation bilaterally. Unlabored respiratory effort. CARDIAC: Regular rate and rhythm without S3, S4, or murmur. ABDOMEN: Soft, nontender, no hepatosplenomegaly. Bowel sounds present. EXTREMITIES: No clubbing, cyanosis, or edema. Laboratory Laboratory Tests Test 06/17/17 12:25 06/17/17 14:24 06/17/17 21:00 06/18/17 04:50 Prothrombin Time 11.9 SEC Prothromb Time International Ratio 1.1 RATIO Activated Partial Thromboplast Time 21.1 SEC Blood Urea Nitrogen 22 MG/DL 22 MG/DL Creatinine 0.85 MG/DL 0.89 MG/DL Random Glucose 97 MG/DL 96 MG/DL Calcium Level 8.4 MG/DL 7.8 MG/DL Sodium Level 140 MEQ/L 140 MEQ/L Potassium Level 3.9 MEQ/L 3.8 MEQ/L Chloride Level 108 MEQ/L 106 MEQ/L Carbon Dioxide Level 22.4 MEQ/L 24.2 MEQ/L Anion Gap 10 MEQ/L 10 MEQ/L Estimat Glomerular Filtration Rate 87 ML/MIN 82 ML/MIN Total Creatine Kinase 404 U/L Creatine Kinase MB 18.6 NG/ML Creatine Kinase MB % 4.6 % Troponin I 5.58 NG/ML White Blood Count 11.0 TH/MM3 Red Blood Count 4.13 MIL/MM3 Hemoglobin 13.2 GM/DL Hematocrit 39.4 % Mean Corpuscular Volume 95.6 FL Mean Corpuscular Hemoglobin 32.0 PG Mean Corpuscular Hemoglobin Concent 33.5 % Red Cell Distribution Width 13.0 % Platelet Count 129 TH/MM3 Mean Platelet Volume 8.4 FL Neutrophils (%) (Auto) 82.2 % Lymphocytes (%) (Auto) 9.2 % Monocytes (%) (Auto) 8.5 % Eosinophils (%) (Auto) 0.0 % Basophils (%) (Auto) 0.1 % Neutrophils # (Auto) 9.1 TH/MM3 Lymphocytes # (Auto) 1.0 TH/MM3 Monocytes # (Auto) 0.9 TH/MM3 Eosinophils # (Auto) 0.0 TH/MM3 Basophils # (Auto) 0.0 TH/MM3 CBC Comment DIFF FINAL Differential Comment Urine Color YELLOW Urine Turbidity CLEAR Urine pH 6.5 Urine Specific [place] GREATER THAN 1.050 Urine Protein TRACE mg/dL Urine Glucose (UA) NEG mg/dL Urine Ketones NEG mg/dL Urine Occult Blood NEG Urine Nitrite NEG Urine Bilirubin NEG Urine Urobilinogen 2.0 MG/DL Urine Leukocyte Esterase NEG Urine RBC LESS THAN 1 /hpf Urine WBC 2 /hpf Urine Mucus FEW /lpf Microscopic Urinalysis Comment CULT NOT INDICATED Total Protein 5.9 GM/DL Albumin 3.0 GM/DL Alkaline Phosphatase 40 U/L Aspartate Amino Transf (AST/SGOT) 43 U/L Alanine Aminotransferase (ALT/SGPT) 23 U/L Total Bilirubin 0.8 MG/DL Triglycerides Level 111 MG/DL Cholesterol Level 142 MG/DL LDL Cholesterol 82 MG/DL HDL Cholesterol 37.5 MG/DL Cholesterol/HDL Ratio 3.78 RATIO Assessment and Plan Problem List: (1) Non-ST elevation DE (NSTEMI) ICD Codes: I21.4 - Non-ST elevation (NSTEMI) myocardial infarction Status: Acute Plan: Stable overnight. Cardiac enzymes clearly consistent with NSTEMI. Patient remains completely asymptomatic. 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 REC continue current medical regimen, increase enalapril dosing await CABG daily aspirin will f/u as needed post op (2) Ischemic cardiomyopathy ICD Codes: I25.5 - Ischemic cardiomyopathy Status: Chronic Plan: EF 30-35% by both echo and cath. No evidence for acute CHF. Rec continue beta cristine, DEVIKA-I. I suspect his EF will improve after CABG. Code Status full code Discussed Condition With patient Shoaib Berry MD Jun 18, 2017 07:38
[2017-06-18] MEDS: ENALAPRIL MALEATE 2.5 MG TAB PO SCH (09:00)
[2017-06-18] MEDS: CARVEDILOL 3.125 MG TAB PO SCH ×2 (09:05→20:23)
[2017-06-18] MEDS: ASPIRIN EC 81 MG TABEC PO SCH (09:06)
--- NOTE | 2017-06-18 12:31 | PD.CAR.PN ---
CVT Progress Note Subjective/Hospital Course: RISK SCORES About the STS Risk Calculator Procedure: CAB Only Risk of Mortality: 1.678% Morbidity or Mortality: 12.039% Long Length of Stay: 5.598% Short Length of Stay: 40.322% Permanent Stroke: 0.816% Prolonged Ventilation: 8.107% DSW Infection: 0.422% Renal Failure: 1.775% Reoperation: 5.489% Objective: Vital Signs Date Time Temp Pulse Resp B/P (MAP) Pulse Ox O2 Delivery O2 Flow Rate FiO2 06/18/17 08:30 98.6 82 18 156/94 (114) 95 06/18/17 07:01 69 06/18/17 05:00 64 06/18/17 04:00 97.7 64 18 138/77 (97) 96 06/18/17 04:00 68 06/18/17 03:00 64 06/18/17 02:00 64 06/18/17 01:00 66 06/18/17 00:00 66 06/18/17 00:00 97.6 78 18 143/79 (100) 97 06/17/17 23:00 66 06/17/17 22:00 66 06/17/17 21:00 66 06/17/17 20:00 96.7 69 18 137/68 (91) 97 06/17/17 20:00 68 06/17/17 19:00 64 06/17/17 18:07 74 06/17/17 17:22 63 06/17/17 16:10 65 06/17/17 16:09 18 06/17/17 15:43 73 06/17/17 15:43 98.7 68 16 134/81 (98) 98 06/17/17 13:02 66 Labs: Laboratory Tests Test 06/18/17 04:50 Blood Urea Nitrogen 22 MG/DL (7-18) Creatinine 0.89 MG/DL (0.60-1.30) Random Glucose 96 MG/DL (74-106) Total Protein 5.9 GM/DL (6.4-8.2) Albumin 3.0 GM/DL (3.4-5.0) Calcium Level 7.8 MG/DL (8.5-10.1) Alkaline Phosphatase 40 U/L (45-117) Aspartate Amino Transf (AST/SGOT) 43 U/L (15-37) Alanine Aminotransferase (ALT/SGPT) 23 U/L (12-78) Total Bilirubin 0.8 MG/DL (0.2-1.0) Sodium Level 140 MEQ/L (136-145) Potassium Level 3.8 MEQ/L (3.5-5.1) Chloride Level 106 MEQ/L (98-107) Carbon Dioxide Level 24.2 MEQ/L (21.0-32.0) Anion Gap 10 MEQ/L (5-15) Estimat Glomerular Filtration Rate 82 ML/MIN (>89) Triglycerides Level 111 MG/DL (42-150) Cholesterol Level 142 MG/DL (120-200) LDL Cholesterol 82 MG/DL (0-99) HDL Cholesterol 37.5 MG/DL (40.0-60.0) Cholesterol/HDL Ratio 3.78 RATIO Result Diagram: 06/17/17 1424 06/18/17 0450 (1) Non-ST elevation DC (NSTEMI) Plan: Stable overnight. Cardiac enzymes clearly consistent with NSTEMI. Patient remains completely asymptomatic. 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 REC continue current medical regimen, increase enalapril dosing await CABG daily aspirin will f/u as needed post op (2) Ischemic cardiomyopathy Plan: EF 30-35% by both echo and cath. No evidence for acute CHF. Rec continue beta cristine, DEVIKA-I. I suspect his EF will improve after CABG. Leena Malcolm Jun 18, 2017 12:31
[2017-06-18 14:11] LABS: HEMOGLOBIN A1b 1.6 %; HEMOGLOBIN Ao 86.2 %; HEMOGLOBIN P3 3.5 %
[2017-06-18] MEDS ORDERED: MAGNESIUM HYDROXIDE SUSP 30 ML CUP PO PRN (14:45)
[2017-06-18] MEDS ORDERED: INSULIN REGULAR (IV INFUSION) 100 UNITS in SODIUM CHLORIDE 0.9% INJ 99 ML IV PRN (16:45)
[2017-06-18] MEDS ORDERED: DEXTROSE 50% IN WATER 50 ML VIAL(D50) IV PUSH PRN (16:45)
[2017-06-18] MEDS ORDERED: METOPROLOL TARTRATE 25 MG TAB PO SCH (16:45)
[2017-06-18] MEDS ORDERED: PAPAVERINE INJ 60 MG, NITROGLYCERIN INJ 100 MCG, DILTIAZEM INJ 100 MG in SODIUM CHLORID... IRRIGATION SCH (16:45)
[2017-06-18] MEDS ORDERED: CEFAZOLIN INJ 500 MG in SODIUM CHLORIDE 0.9% IRR BTL 500 ML IRRIGATION SCH (16:45)
[2017-06-18] MEDS ORDERED: SODIUM CHLORIDE 0.9% FLUSH 10 ML FLUSH IV FLUSH PRN (16:45)
[2017-06-18] MEDS ORDERED: ceFAZolin 2 GM PREMIX 50 ML IV SCH (16:45)
[2017-06-18] MEDS ORDERED: CHLORHEXIDINE GLUCONATE 4% SOLN 120 ML BTL TOPICAL SCH (16:45)
--- NOTE | 2017-06-18 16:51 | HHI.PR ---
Subjective Subjective Notes Resting in bed No issues at bedside Objective Vitals/I&O Vital Signs Date Time Temp Pulse Resp B/P (MAP) Pulse Ox O2 Delivery O2 Flow Rate FiO2 06/18/17 14:01 68 06/18/17 11:30 97.9 18 133/78 (96) 97 Labs Laboratory Tests Test 06/17/17 21:00 06/18/17 04:50 Urine Color YELLOW Urine Turbidity CLEAR Urine pH 6.5 Urine Specific [place] GREATER THAN 1.050 Urine Protein TRACE Urine Glucose (UA) NEG Urine Ketones NEG Urine Occult Blood NEG Urine Nitrite NEG Urine Bilirubin NEG Urine Urobilinogen 2.0 Urine Leukocyte Esterase NEG Urine RBC LESS THAN 1 Urine WBC 2 Urine Mucus FEW Microscopic Urinalysis Comment CULT NOT INDICATED Blood Urea Nitrogen 22 Creatinine 0.89 Random Glucose 96 Total Protein 5.9 Albumin 3.0 Calcium Level 7.8 Alkaline Phosphatase 40 Aspartate Amino Transf (AST/SGOT) 43 Alanine Aminotransferase (ALT/SGPT) 23 Total Bilirubin 0.8 Sodium Level 140 Potassium Level 3.8 Chloride Level 106 Carbon Dioxide Level 24.2 Anion Gap 10 Estimat Glomerular Filtration Rate 82 Hemoglobin A1c 5.5 Triglycerides Level 111 Cholesterol Level 142 LDL Cholesterol 82 HDL Cholesterol 37.5 Cholesterol/HDL Ratio 3.78 Cardiovascular: Regular Lungs: Clear Abdomen: Other (lap sites c/d/i; minimal tenderness ) Extremities: No edema A/P Assessment and Plan 81 year old male POD2 laparoscopic bilateral inguinal hernia in outpatient surgery center; post op EKG changes -Cardiology following; s/p cath--- severe three vessel coronary artery disease -Consult to Cardiothoracic Surgery ---plan for CABG on Wednesday -Regular diet -HEPAS will follow the patient as Attending per request of Cardiothoracic Surgery -Discussed with Nicolle FITCH -No acute GS needs; will see peripherally over the weekend Attending Note - Dr. Grove Abdomen soft; no bruising Stable from GS stdpt. The exam, history, and the medical decision-making described in the above note were completed with the assistance of the mid-level provider. I reviewed and agree with the findings presented. I attest that I had a [id number] encounter with the patient on the same day, and personally performed and documented my assessment and findings in the medical record. Ellen Leach Jun 18, 2017 16:51 Tim Grove MD Jun 23, 2017 16:06
[2017-06-18 17:06] LABS: MEAN CORPUSCULAR HGB CONC 34.4 % (32.0-36.0); PLATELET COUNT 116 TH/MM3 (150-450); RED BLOOD COUNT 4.17 MIL/MM3 (4.50-5.90); RED CELL DISTRIBUTION WIDTH 13.1 % (11.6-17.2); REVIEW FLAG FINAL; WHITE BLOOD COUNT 9.2 TH/MM3 (4.0-11.0)
[2017-06-18 17:16] LABS: APTT (PATIENT) 25.2 SEC (24.3-30.1)
--- NOTE | 2017-06-18 18:28 | MB ---
cc: YUDI CHOI DATE OF CONSULTATION 06/18/17 HISTORY OF PRESENT ILLNESS This is an 81-year-old male who recently moved to the [place] area about a year and a half ago. He has not established with a primary care physician, however, he apparently had bilateral inguinal hernias and also recent UTI where he saw Dr. Ellsworth who noticed the hernias and then sent him to Dr. Grove. The patient underwent laparoscopic bilateral hernia repair at an outpatient surgery center on 06/[address] Grove. They noticed some perioperative and postop EKG changes where he had some ST-segment changes seen on the monitor and he was transferred to [facility]. His troponins were 2.43 then 5.58. EKG did show some poor R-wave progression in the anterior leads and T-wave inversion in the lateral leads. He did undergo cardiac cath by Dr. Shoaib Berry which showed an EF of 30%, left main disease at 15%. The LAD had an 80% stenosis proximally. The second diagonal had a 60% ostial lesion. The RCA was totally occluded, however, there were some collaterals. The echocardiogram also showed EF of 30-35%, trace MR, trace aortic insufficiency, some global systolic dysfunction. Normal left atrial and right atrial size. We were consulted to evaluate for coronary artery bypass grafting. PAST MEDICAL HISTORY The patient has basically no medical history, has not seen a doctor in quite some time, has been rather healthy. PAST SURGICAL HISTORY His only surgery is bilateral lens implants. ALLERGIES He has no known allergies. MEDICATIONS On no medications. FAMILY HISTORY Mother from liver disease. Father after an aneurysm in the abdomen. SOCIAL HISTORY The patient . Two children. No tobacco. Rare alcohol. 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 REVIEW OF SYSTEMS GENERAL: No night sweats, fever, heat, cold intolerance. SKIN: No psoriasis, itching or hives. HEENT: No blurred vision, hearing loss. RESPIRATORY: No cough, shortness of breath. CARDIOVASCULAR: No chest pain. He has, however, some fatigue off and on over the past 6 months. GENITOURINARY: Recent UTI. GASTROINTESTINAL: No diarrhea, vomiting. DINING SERVICE SUPERVISOR: No history of TIA, CVA, seizure disorder. ENDOCRINOLOGY: No history of hypothyroidism or diabetes. PHYSICAL EXAMINATION VITAL SIGNS: Blood pressure 130/70, heart rate 68, afebrile. O2 sat 97 on room air. GENERAL: Patient is awake, alert, in no acute distress. HEENT: Head is normocephalic, atraumatic. Pupils equal and reactive. Oral mucosa pink, moist. NECK: Supple. No JVD. HEART: Heart sounds S1-S2, regular rate and rhythm. No audible rubs, murmurs, gallops. LUNGS: Clear to auscultation. No wheezes, rales or rhonchi. ABDOMEN: Obese, slightly distended, however he has got positive bowel sounds. DIRECTED EXAMINATION: He has a Bandaid dressing over the umbilicus and some small incisions on either side of the umbilical area with some Steri-Strips and both groin sites are intact. There is some very faint ecchymotic areas, good distal pulses from his surgery. LABORATORY DATA His lab work shows hemoglobin 13, hematocrit of 39, white cell count of 11, platelet count 129, sodium 140, potassium 3.8, BUN of 22, creatinine 0.89. AST 43, ALT 23, triglycerides 111, cholesterol 142, LDL of 82, HDL 37. CARDIOLOGY STUDIES EKG as above. RADIOLOGICAL EXAMS Carotid ultrasound unremarkable. Chest x-ray unremarkable. IMPRESSION This is a very pleasant 81-year-old male with multivessel disease, ejection fraction of 30%, elevated troponins, non-STEMI following a bilateral hernia repair, laparoscopic, as an outpatient on 06/16/2017. At this time the patient has been evaluated for cardiovascular surgery x2 to 3. Planning will be for Wednesday, the . The procedures, alternatives and risks have been discussed with the patient. The patient is agreeable to proceed. In the meantime will start a heparin drip until his surgery which will be discontinued 4 hours prior. He will be on a statin, aspirin and low-dose beta cristine as tolerated. Dictated by: LITTLE Spencer MD ISAURO Chao/ELIZABETH /4:46 PM /8:08 AM
[2017-06-18] MEDS: SODIUM CHLORIDE 0.9% FLUSH 10 ML FLUSH IV FLUSH SCH (20:22)
[2017-06-18] MEDS: ATORVASTATIN 40 MG TAB PO SCH (20:23)
[2017-06-18] MEDS: HEPARIN-D5W 25,000 U/250 ML 250 ML IV PRN (23:47)
[2017-06-19] VITALS (24 sets, daily range): BP systolic 130–153; BP diastolic 65–78; PULSE 62–80; RESP 16–18; TEMP 97.7–98.2; O2SAT 93–96
[2017-06-19] MEDS: SODIUM CHLOR 0.9% 1000 ML INJ 1,000 ML IV SCH ×3 (00:08→20:08)
[2017-06-19 04:47] LABS: APTT (PATIENT) 33.1 SEC (24.3-30.1)
[2017-06-19] MEDS: SODIUM CHLORIDE 0.9% FLUSH 10 ML FLUSH IV FLUSH SCH ×2 (08:53→21:19)
[2017-06-19] MEDS: ASPIRIN EC 81 MG TABEC PO SCH (08:53)
[2017-06-19] MEDS: CARVEDILOL 3.125 MG TAB PO SCH ×2 (08:53→21:19)
--- NOTE | 2017-06-19 11:30 | HHI.PR ---
Subjective Remarks Follow-up severe three-vessel CAD 06/19/17-patient seen and examined, denies any chest pain or shortness of breath. Objective Vitals Vital Signs Date Time Temp Pulse Resp B/P (MAP) Pulse Ox O2 Delivery O2 Flow Rate FiO2 06/19/17 11:00 70 06/19/17 11:00 97.7 67 16 140/67 (91) 94 06/19/17 10:00 73 06/19/17 09:00 78 06/19/17 08:00 78 06/19/17 07:00 97.8 75 18 145/71 (95) 93 06/19/17 07:00 76 06/19/17 06:04 78 06/19/17 05:00 74 06/19/17 04:20 78 06/19/17 03:15 98.1 78 18 153/78 (103) 93 06/19/17 03:09 78 06/19/17 02:11 80 06/19/17 01:20 78 06/19/17 00:15 79 06/18/17 23:30 99.1 82 16 154/72 (99) 94 06/18/17 23:30 84 06/18/17 22:00 80 06/18/17 21:00 84 06/18/17 20:00 98.0 90 20 142/75 (97) 96 06/18/17 20:00 90 06/18/17 18:01 82 06/18/17 17:00 74 06/18/17 16:00 74 06/18/17 15:30 97.9 71 18 143/78 (99) 94 06/18/17 15:00 73 06/18/17 14:01 68 06/18/17 13:00 64 06/18/17 12:00 68 06/18/17 11:30 97.9 67 18 133/78 (96) 97 I/O 06/18/17 06/18/17 06/18/17 06/19/17 06/19/17 06/19/17 07:00 15:00 23:00 07:00 15:00 23:00 Intake Total 1343 ml 720 ml 240 ml Output Total 825 ml 1250 ml 375 ml Balance 518 ml -530 ml -135 ml Intake Oral 240 ml 720 ml 240 ml IV Total 1103 ml Output Urine Total 825 ml 1250 ml 375 ml # Voids 9 # Bowel Movements 0 0 0 Result Diagram: 06/18/17 1654 06/18/17 0450 Imaging Last Impressions Lower Extremity Ultrasound 06/17/17 0000 Signed Impressions: Service Date/Time: June 19:15 - CONCLUSION: Patent greater saphenous veins bilaterally with measurements above. Michael Bradford Jr., MD Chest X-Ray 06/17/17 0000 Signed Impressions: Service Date/Time: June 16:25 - CONCLUSION: No acute disease. Jigar Whitney MD Carotid Artery Ultrasound 06/17/17 0000 Signed Impressions: Service Date/Time: June 19:36 - CONCLUSION: 1. Calcified plaque involving the carotid arteries bilaterally without hemodynamically significant stenosis involving either carotid. 2. Antegrade flow involving both vertebral arteries. Michael Bradford Jr., MD Objective Remarks GENERAL: NAD SKIN: Warm and dry. HEAD: Normocephalic. EYES: No scleral icterus. No injection or drainage. NECK: Supple, trachea midline. No JVD or lymphadenopathy. CARDIOVASCULAR: Regular rate and rhythm without murmurs, gallops, or rubs. RESPIRATORY: Breath sounds equal bilaterally. No accessory muscle use. GASTROINTESTINAL: Abdomen soft, non-tender, nondistended. MUSCULOSKELETAL: No cyanosis, or edema. BACK: Nontender without obvious deformity. No CVA tenderness. A/P Problem List: (1) Multi-vessel coronary artery stenosis ICD Code: I25.10 - Atherosclerotic heart disease of [place] coronary artery without angina pectoris (2) Non-ST elevation [place] (NSTEMI) ICD Code: I21.4 - Non-ST elevation (NSTEMI) myocardial infarction Status: Acute (3) Ischemic cardiomyopathy ICD Code: I25.5 - Ischemic cardiomyopathy Status: Chronic Assessment and Plan 81-year-old man with Multivessel coronary artery disease Status post left heart catheterization Plan for CABG 06/21/17 by cardiothoracic surgery Continue with heparin drip, aspirin, Lipitor, Coreg. DEVIKA inhibitor on hold Non-ST elevation [place] Status post left heart catheterization Cardiology following and continue with above medical regiment Ischemic cardiomyopathy EF 30-35% by both echo and cath. No evidence for acute CHF. Continue with beta cristine, however holding DEVIKA inhibitor due to plan CABG on Wednesday06/21/17 DVT prophylaxis: Heparin drip Change to inpatient admission Carlos Felipe MD Jun 19, 2017 11:30
[2017-06-19 17:12] LABS: APTT (PATIENT) 39.9 SEC (24.3-30.1)
[2017-06-19] MEDS: ATORVASTATIN 40 MG TAB PO SCH (21:19)
[2017-06-19] MEDS: HEPARIN-D5W 25,000 U/250 ML 250 ML IV PRN (22:40)
[2017-06-20] VITALS (28 sets, daily range): BP systolic 114–146; BP diastolic 57–68; PULSE 61–68; RESP 18–20; TEMP 97.9–98.3; O2SAT 95–97
[2017-06-20 05:30] LABS: HEMATOCRIT 41.3 % (39.0-51.0); MEAN CELL VOLUME 94.7 FL (80.0-100.0); MEAN CORPUSCULAR HGB CONC 34.9 % (32.0-36.0); PLATELET COUNT 107 TH/MM3 (150-450); RED BLOOD COUNT 4.36 MIL/MM3 (4.50-5.90); REVIEW FLAG FINAL; WHITE BLOOD COUNT 7.5 TH/MM3 (4.0-11.0)
[2017-06-20 05:49] LABS: APTT (PATIENT) 46.6 SEC (24.3-30.1)
[2017-06-20 05:59] LABS: ALT (GPT) 28 U/L (12-78); ANION GAP 10 MEQ/L (5-15); AST (GOT) 29 U/L (15-37); BICARBONATE 23.5 MEQ/L (21.0-32.0); BLOOD UREA NITROGEN 16 MG/DL (7-18); CHLORIDE 106 MEQ/L (98-107); GLOMERULAR FILTRATION RATE 93 ML/MIN (>89); POTASSIUM 3.5 MEQ/L (3.5-5.1); SODIUM (NA) 139 MEQ/L (136-145)
[2017-06-20 06:02] LABS: ALKALINE PHOSPHATASE 45 U/L (45-117); TOTAL BILIRUBIN ADULT 1.7 MG/DL (0.2-1.0)
[2017-06-20] MEDS: SODIUM CHLOR 0.9% 1000 ML INJ 1,000 ML IV SCH ×2 (06:08→16:08)
--- NOTE | 2017-06-20 08:38 | HHI.PR ---
Subjective Remarks Follow-up severe three-vessel CAD 06/19/17-patient seen and examined, denies any chest pain or shortness of breath. 06/20/17-patient seen and examined, denies any shortness of breath no acute event overnight. Stable Objective Vitals Vital Signs Date Time Temp Pulse Resp B/P (MAP) Pulse Ox O2 Delivery O2 Flow Rate FiO2 06/20/17 08:13 98.1 61 18 134/68 (90) 95 06/20/17 06:00 61 06/20/17 05:00 65 06/20/17 04:30 98.2 63 18 130/67 (88) 97 06/20/17 04:00 64 06/20/17 03:00 64 06/20/17 02:00 61 06/20/17 01:00 61 06/20/17 00:00 66 06/19/17 23:56 98.2 64 16 130/68 (88) 96 06/19/17 23:00 62 06/19/17 20:00 69 18 133/65 (87) 96 06/19/17 19:00 69 06/19/17 18:00 66 06/19/17 17:00 64 06/19/17 16:00 65 06/19/17 15:00 97.9 66 16 135/69 (91) 94 06/19/17 15:00 67 06/19/17 14:00 66 06/19/17 13:00 72 06/19/17 12:00 72 06/19/17 11:00 70 06/19/17 11:00 97.7 67 16 140/67 (91) 94 06/19/17 10:00 73 06/19/17 09:00 78 I/O 06/19/17 06/19/17 06/19/17 06/20/17 06/20/17 06/20/17 07:00 15:00 23:00 07:00 15:00 23:00 Intake Total 240 ml 708 ml 317 ml Output Total 375 ml 830 ml 600 ml Balance -135 ml -122 ml -283 ml Intake Oral 240 ml 480 ml 240 ml IV Total 228 ml 77 ml Output Urine Total 375 ml 830 ml 600 ml # Voids 3 # Bowel Movements 0 0 0 Result Diagram: 06/20/1743206/20/17432 Objective Remarks GENERAL: NAD SKIN: Warm and dry. HEAD: Normocephalic. EYES: No scleral icterus. No injection or drainage. NECK: Supple, trachea midline. No JVD or lymphadenopathy. CARDIOVASCULAR: Regular rate and rhythm without murmurs, gallops, or rubs. RESPIRATORY: Breath sounds equal bilaterally. No accessory muscle use. GASTROINTESTINAL: Abdomen soft, non-tender, nondistended. MUSCULOSKELETAL: No cyanosis, or edema. BACK: Nontender without obvious deformity. No CVA tenderness. Procedures Status post laparoscopic bilateral inguinal hernia 06/17/17 A/P Problem List: (1) Multi-vessel coronary artery stenosis ICD Code: I25.10 - Atherosclerotic heart disease of [place] coronary artery without angina pectoris (2) Non-ST elevation [place] (NSTEMI) ICD Code: I21.4 - Non-ST elevation (NSTEMI) myocardial infarction Status: Acute (3) Ischemic cardiomyopathy ICD Code: I25.5 - Ischemic cardiomyopathy Status: Chronic Assessment and Plan 81-year-old man with Multivessel coronary artery disease Status post left heart catheterization Plan for CABG tomorrow 06/21/17 by cardiothoracic surgery Continue with heparin drip, aspirin, Lipitor, Coreg. DEVIKA inhibitor on hold Non-ST elevation [place] Status post left heart catheterization Cardiology following and continue with above medical regiment Ischemic cardiomyopathy EF 30-35% by both echo and cath. No evidence for acute CHF. Continue with beta cristine, however holding DEVIKA inhibitor due to plan CABG on Wednesday06/21/17 Status post laparoscopic bilateral inguinal hernia 06/17/17 Continue current postop care DVT prophylaxis: Heparin drip Carlos Felipe MD Jun 20, 2017 08:38
[2017-06-20] MEDS: SODIUM CHLORIDE 0.9% FLUSH 10 ML FLUSH IV FLUSH SCH ×2 (09:00→20:22)
[2017-06-20] MEDS: CARVEDILOL 3.125 MG TAB PO SCH ×2 (09:32→20:22)
[2017-06-20] MEDS: ASPIRIN EC 81 MG TABEC PO SCH (09:32)
--- NOTE | 2017-06-20 11:21 | PD.CAR.PN ---
CVT Progress Note Subjective/Hospital Course: RISK SCORES About the STS Risk Calculator Procedure: CAB Only Risk of Mortality: 1.678% Morbidity or Mortality: 12.039% Long Length of Stay: 5.598% Short Length of Stay: 40.322% Permanent Stroke: 0.816% Prolonged Ventilation: 8.107% DSW Infection: 0.422% Renal Failure: 1.775% Reoperation: 5.489% 06/20/17 Denies chest pain/symptoms. c/o constipation Objective: Vital Signs Date Time Temp Pulse Resp B/P (MAP) Pulse Ox O2 Delivery O2 Flow Rate FiO2 06/20/17 10:00 68 06/20/17 09:00 62 06/20/17 08:13 98.1 61 18 134/68 (90) 95 06/20/17 08:00 62 06/20/17 07:00 62 06/20/17 06:00 61 06/20/17 05:00 65 06/20/17 04:30 98.2 63 18 130/67 (88) 97 06/20/17 04:00 64 06/20/17 03:00 64 06/20/17 02:00 61 06/20/17 01:00 61 06/20/17 00:00 66 06/19/17 23:56 98.2 64 16 130/68 (88) 96 06/19/17 23:00 62 06/19/17 20:00 69 18 133/65 (87) 96 06/19/17 19:00 69 06/19/17 18:00 66 06/19/17 17:00 64 06/19/17 16:00 65 06/19/17 15:00 97.9 66 16 135/69 (91) 94 06/19/17 15:00 67 06/19/17 14:00 66 06/19/17 13:00 72 06/19/17 12:00 72 Labs: Laboratory Tests Test 06/20/17 04:33 White Blood Count 7.5 TH/MM3 (4.0-11.0) Red Blood Count 4.36 MIL/MM3 (4.50-5.90) Hemoglobin 14.4 GM/DL (13.0-17.0) Hematocrit 41.3 % (39.0-51.0) Mean Corpuscular Volume 94.7 FL (80.0-100.0) Mean Corpuscular Hemoglobin 33.0 PG (27.0-34.0) Mean Corpuscular Hemoglobin Concent 34.9 % (32.0-36.0) Red Cell Distribution Width 13.0 % (11.6-17.2) Platelet Count 107 TH/MM3 (150-450) Mean Platelet Volume 8.8 FL (7.0-11.0) Activated Partial Thromboplast Time 46.6 SEC (24.3-30.1) Blood Urea Nitrogen 16 MG/DL (7-18) Creatinine 0.80 MG/DL (0.60-1.30) Random Glucose 101 MG/DL (74-106) Total Protein 6.5 GM/DL (6.4-8.2) Albumin 3.1 GM/DL (3.4-5.0) Calcium Level 8.2 MG/DL (8.5-10.1) Alkaline Phosphatase 45 U/L (45-117) Aspartate Amino Transf (AST/SGOT) 29 U/L (15-37) Alanine Aminotransferase (ALT/SGPT) 28 U/L (12-78) Total Bilirubin 1.7 MG/DL (0.2-1.0) Sodium Level 139 MEQ/L (136-145) Potassium Level 3.5 MEQ/L (3.5-5.1) Chloride Level 106 MEQ/L (98-107) Carbon Dioxide Level 23.5 MEQ/L (21.0-32.0) Anion Gap 10 MEQ/L (5-15) Estimat Glomerular Filtration Rate 93 ML/MIN (>89) Result Diagram: 06/20/17 0433 06/20/17 0433 Imaging: Last Impressions Lower Extremity Ultrasound 06/17/17 Signed Impressions: Service Date/Time: June 19:15 - CONCLUSION: Patent greater saphenous veins bilaterally with measurements above. Michael Bradford Jr., MD Chest X-Ray 06/17/17 Signed Impressions: Service Date/Time: June 16:25 - CONCLUSION: No acute disease. Jigar Whitney MD Carotid Artery Ultrasound 06/17/17 Signed Impressions: Service Date/Time: June 19:36 - CONCLUSION: 1. Calcified plaque involving the carotid arteries bilaterally without hemodynamically significant stenosis involving either carotid. 2. Antegrade flow involving both vertebral arteries. Michael Bradford Jr., MD Cardiovascular: RRR Telemetry: NSR Pulmonary: CTA GI/: GENETS, NT Plan: Addressed questions regarding CABG tomorrow. MOM for constipation (1) Non-ST elevation [place] (NSTEMI) Plan: Stable overnight. Cardiac enzymes clearly consistent with NSTEMI. Patient remains completely asymptomatic. 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 REC continue current medical regimen, increase enalapril dosing await CABG daily aspirin will f/u as needed post op (2) Ischemic cardiomyopathy Plan: EF 30-35% by both echo and cath. No evidence for acute CHF. Rec continue beta cristine, DEVIKA-I. I suspect his EF will improve after CABG. Sharon Cedeno MD Jun 20, 2017 11:21
[2017-06-20] MEDS ORDERED: SOD PHOSPHATE/SOD BIPHOSPHATE (ADULT) ENEMA 133ML RECTAL ONE (18:00)
[2017-06-20] MEDS: ATORVASTATIN 40 MG TAB PO SCH (20:22)
[2017-06-20] MEDS: HEPARIN-D5W 25,000 U/250 ML 250 ML IV PRN (22:28)
[2017-06-21] VITALS (19 sets, daily range): BP systolic 115–159; BP diastolic 60–81; PULSE 61–90; RESP 16–18; TEMP 97.3–98.6; O2SAT 94–97
[2017-06-21] MEDS: SODIUM CHLOR 0.9% 1000 ML INJ 1,000 ML IV SCH ×3 (02:08→22:08)
[2017-06-21 04:58] LABS: HEMATOCRIT 42.8 % (39.0-51.0); MEAN CELL VOLUME 95.1 FL (80.0-100.0); MEAN CORPUSCULAR HEMOGLOBIN 32.3 PG (27.0-34.0); MEAN CORPUSCULAR HGB CONC 33.9 % (32.0-36.0); PLATELET COUNT 135 TH/MM3 (150-450); RED CELL DISTRIBUTION WIDTH 12.7 % (11.6-17.2); REVIEW FLAG FINAL; WHITE BLOOD COUNT 7.7 TH/MM3 (4.0-11.0)
[2017-06-21 05:25] LABS: APTT (PATIENT) 42.4 SEC (24.3-30.1)
[2017-06-21] MEDS: SODIUM CHLORIDE 0.9% FLUSH 10 ML FLUSH IV FLUSH SCH ×2 (09:00→19:59)
[2017-06-21] MEDS: ASPIRIN EC 81 MG TABEC PO SCH (09:09)
[2017-06-21] MEDS: CARVEDILOL 3.125 MG TAB PO SCH (09:09)
--- NOTE | 2017-06-21 09:31 | HHI.PR ---
Subjective Remarks Follow-up severe three-vessel CAD 06/19/17-patient seen and examined, denies any chest pain or shortness of breath. 06/20/17-patient seen and examined, denies any shortness of breath no acute event overnight. Stable 06/21/17-patient seen and examined, currently nothing by mouth. No acute event overnight. Positive for bowel movement Objective Vitals Vital Signs Date Time Temp Pulse Resp B/P (MAP) Pulse Ox O2 Delivery O2 Flow Rate FiO2 06/21/17 07:30 64 06/21/17 07:30 98.1 64 18 132/64 (86) 94 06/21/17 06:27 69 06/21/17 05:06 63 06/21/17 05:06 97.5 63 18 126/60 (82) 97 06/21/17 04:09 61 06/21/17 03:25 62 06/21/17 02:05 64 06/21/17 01:00 63 06/21/17 00:01 63 06/20/17 23:42 98.3 67 20 114/57 (76) 97 06/20/17 23:01 67 06/20/17 22:00 67 06/20/17 21:00 65 06/20/17 20:00 63 06/20/17 19:59 98.3 64 20 146/68 (94) 97 06/20/17 19:00 64 06/20/17 18:01 65 06/20/17 17:00 64 06/20/17 16:00 62 06/20/17 15:00 62 06/20/17 15:00 97.9 65 18 131/63 (85) 96 06/20/17 14:00 62 06/20/17 13:00 66 06/20/17 12:00 64 06/20/17 11:00 68 06/20/17 11:00 98.0 65 18 131/57 (81) 96 06/20/17 10:00 68 I/O 06/20/17 06/20/17 06/20/17 06/21/17 06/21/17 06/21/17 07:00 15:00 23:00 07:00 15:00 23:00 Intake Total 328 ml 88 ml 647 ml 251 ml Output Total 600 ml 730 ml 300 ml Balance -272 ml 88 ml -83 ml -49 ml Intake Oral 240 ml 480 ml 240 ml IV Total 88 ml 88 ml 167 ml 11 ml Output Urine Total 600 ml 730 ml 300 ml # Voids 3 4 # Bowel Movements 0 1 1 Result Diagram: 06/21/175 06/20/17 0433 Objective Remarks GENERAL: NAD SKIN: Warm and dry. HEAD: Normocephalic. EYES: No scleral icterus. No injection or drainage. NECK: Supple, trachea midline. No JVD or lymphadenopathy. CARDIOVASCULAR: Regular rate and rhythm without murmurs, gallops, or rubs. RESPIRATORY: Breath sounds equal bilaterally. No accessory muscle use. GASTROINTESTINAL: Abdomen soft, non-tender, nondistended. MUSCULOSKELETAL: No cyanosis, or edema. BACK: Nontender without obvious deformity. No CVA tenderness. Procedures Status post laparoscopic bilateral inguinal hernia 06/17/17 A/P Problem List: (1) Multi-vessel coronary artery stenosis ICD Code: I25.10 - Atherosclerotic heart disease of [place] coronary artery without angina pectoris (2) Non-ST elevation [place] (NSTEMI) ICD Code: I21.4 - Non-ST elevation (NSTEMI) myocardial infarction Status: Acute (3) Ischemic cardiomyopathy ICD Code: I25.5 - Ischemic cardiomyopathy Status: Chronic Assessment and Plan 81-year-old man with Multivessel coronary artery disease Status post left heart catheterization Plan for CABG today 06/21/17 by cardiothoracic surgery Continue with heparin drip, aspirin, Lipitor, Coreg. DEVIKA inhibitor on hold Non-ST elevation [place] Status post left heart catheterization Cardiology following and continue with above medical regiment Ischemic cardiomyopathy EF 30-35% by both echo and cath. No evidence for acute CHF. Continue with beta cristine, however holding DEVIKA inhibitor due to plan CABG today Wednesday06/21/17 Status post laparoscopic bilateral inguinal hernia 06/17/17 Continue current postop care DVT prophylaxis: Heparin drip Carlos Felipe MD Jun 21, 2017 09:31
[2017-06-21] MEDS ORDERED: VANCOMYCIN HCL 1000 MG VIAL ONE (11:09)
[2017-06-21] MEDS ORDERED: HEPARIN SODIUM - IV 10,000 UNITS/10 ML VIAL ONE ×2 (11:09→11:12)
[2017-06-21] MEDS ORDERED: POTASSIUM CHLORIDE 40 MEQ/20 ML VIAL ONE (11:10)
[2017-06-21] MEDS ORDERED: CARDIOPLEGIC IRR 2,000 ML ONE (11:10)
[2017-06-21] MEDS ORDERED: SODIUM BICARBONATE 8.4% INJ 50 ML ONE (11:11)
[2017-06-21] MEDS ORDERED: POTASSIUM CHLORIDE 20 MEQ/10 ML VIAL ONE ×2 (11:11)
[2017-06-21] MEDS ORDERED: ceFAZolin 2 GM PREMIX 50 ML ONE (11:24)
[2017-06-21] MEDS ORDERED: MAGNESIUM SULFATE 1 GM/2 ML VIAL IV ONE (12:00)
[2017-06-21] MEDS ORDERED: NITROGLYCERIN 50 MG/DEXTROSE 5% SOLN 250 ML BTL IV ONE (12:00)
[2017-06-21] MEDS ORDERED: MIDAZOLAM HCL 2 MG/2 ML VIAL IV ONE (12:00)
[2017-06-21] MEDS ORDERED: PHENYLEPH/NS 1000 MCG/10 ML SYR IV ONE (12:00)
[2017-06-21] MEDS ORDERED: VECURONIUM BROMIDE 10 MG VIAL IV ONE (12:00)
[2017-06-21] MEDS ORDERED: PROTAMINE SULFATE 250 MG/25 ML VIAL IV ONE (12:00)
[2017-06-21] MEDS ORDERED: SODIUM CHLOR 0.9% 250 ML INJ 250 ML IV ONE (12:00)
[2017-06-21] MEDS ORDERED: NORMOSOL R INJ 1,000 ML IV ONE (12:00)
[2017-06-21] MEDS ORDERED: SODIUM CHLORIDE 0.9% INJ 100 ML IV ONE (12:00)
[2017-06-21] MEDS ORDERED: EPINEPHrine HCL (1:1000) 1 MG/ML VIAL IV ONE (12:00)
[2017-06-21] MEDS ORDERED: ePHEDrine/NS 25 MG/5 ML SYR IV ONE (12:00)
[2017-06-21] MEDS ORDERED: HEPARIN SODIUM - SQ 10,000 UNITS/ML VIAL SQ ONE (12:00)
[2017-06-21] MEDS ORDERED: TRANEXAMIC ACID INJ 1,000 MG/10 ML AMP IV ONE (12:00)
[2017-06-21] MEDS ORDERED: methylPREDNISolone SOD SUCC 125 MG/2 ML VIAL ONE (12:17)
--- NOTE | 2017-06-21 13:23 | PD.CAR.PN ---
CVT Progress Note Subjective/Hospital Course: 81-year-old male who recently moved to the [place] area about a year and a half ago. , he apparently recent UTI where he saw Dr. Blanc who noticed the bilateral inguinal hernias and then sent him to Dr. Grove. The patient underwent laparoscopic bilateral hernia repair at an outpatient surgery center on 06/[address] Grove. They noticed some perioperative and postop EKG changes where he had some ST-segment changes seen on the monitor and he was transferred to [facility]. His troponins were 2.43 then 5.58. EKG did show some poor R-wave progression in the anterior leads and T-wave inversion in the lateral leads. He did undergo cardiac cath by Dr. Shoaib Berry which showed an EF of 30%, left main disease at 15%. The LAD had an 80% stenosis proximally. The second diagonal had a 60% ostial lesion. The RCA was totally occluded, however, there were some collaterals. The echocardiogram also showed EF of 30-35 %, trace MR, trace aortic insufficiency, some global systolic dysfunction. Normal left atrial and right atrial size. We were consulted to evaluate for coronary artery bypass grafting. PAST MEDICAL HISTORY The patient has basically no medical history, has not seen a doctor in quite some time, has been rather healthy. 06/20/17 Denies chest pain/symptoms. c/o constipation 06/21/17 for surgery today Objective: Vital Signs Date Time Temp Pulse Resp B/P (MAP) Pulse Ox O2 Delivery O2 Flow Rate FiO2 06/21/17 11:08 98.6 65 18 143/66 (91) 95 06/21/17 11:08 65 06/21/17 07:30 64 06/21/17 07:30 98.1 64 18 132/64 (86) 94 06/21/17 06:27 69 06/21/17 05:06 63 06/21/17 05:06 97.5 63 18 126/60 (82) 97 06/21/17 04:09 61 06/21/17 03:25 62 06/21/17 02:05 64 06/21/17 01:00 63 06/21/17 00:01 63 06/20/17 23:42 98.3 67 20 114/57 (76) 97 06/20/17 23:01 67 06/20/17 22:00 67 06/20/17 21:00 65 06/20/17 20:00 63 06/20/17 19:59 98.3 64 20 146/68 (94) 97 06/20/17 19:00 64 06/20/17 18:01 65 06/20/17 17:00 64 06/20/17 16:00 62 06/20/17 15:00 62 06/20/17 15:00 97.9 65 18 131/63 (85) 96 06/20/17 14:00 62 Labs: Laboratory Tests Test 06/21/17 04:25 White Blood Count 7.7 TH/MM3 (4.0-11.0) Red Blood Count 4.50 MIL/MM3 (4.50-5.90) Hemoglobin 14.5 GM/DL (13.0-17.0) Hematocrit 42.8 % (39.0-51.0) Mean Corpuscular Volume 95.1 FL (80.0-100.0) Mean Corpuscular Hemoglobin 32.3 PG (27.0-34.0) Mean Corpuscular Hemoglobin Concent 33.9 % (32.0-36.0) Red Cell Distribution Width 12.7 % (11.6-17.2) Platelet Count 135 TH/MM3 (150-450) Mean Platelet Volume 8.5 FL (7.0-11.0) Activated Partial Thromboplast Time 42.4 SEC (24.3-30.1) Result Diagram: 06/21/17 0425 06/20/17 0433 (1) Non-ST elevation [place] (NSTEMI) Plan: Stable overnight. Cardiac enzymes clearly consistent with NSTEMI. Patient remains completely asymptomatic. 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 for surgery today resume DEVIKA inhibitor / when stable (2) Ischemic cardiomyopathy Plan: EF 30-35% by both echo and cath. No evidence for acute CHF. Rec continue beta cristine, DEVIKA-I. I suspect his EF will improve after CABG. Leena Malcolm Jun 21, 2017 13:23
--- NOTE | 2017-06-21 13:34 | HHI.FF ---
Face to Face Verification Diagnosis: (1) S/P CABG (coronary artery bypass graft) (2) Ischemic cardiomyopathy (3) Multi-vessel coronary artery stenosis Physical Therapy Order: Evaluate and Treat Home Health Nursing Order: Signs/symptoms of disease process Medication education-adverse effect Wound care and dressing changes Nursing assessment with vital signs Instructions: Heart and Vascular Surgery patients *Special attention to sternal dressing Mandatory frequency Assess and evaluation, 4 days in a row The next week 3X week 2 times a week for 4 weeks 1 time a week for 5 weeks Schedule Heart and Vascular patients for full 60 day certification period Initial visit Review Open Heart Surgery Discharge Instructions (Sternal precautions, Activity, Elastic hose, Incision care, Driving, Incentive spirometry, Smoking, [place], Work and other) Need Betadine to paint incision Medication reconciliation Importance of follow up care/ check on appointments Make calendar record temperature daily When to call [facility] nurse, review instructions, phone list Incentive Spirometry, demonstration Visit 1- Begin discharge instruction for patient family and/ or caregiver using teach back method- Signs and symptoms of infection Disease characteristics Medicines and side effects Foods and nutrition/ appetite Infection control/ hand washing/ hygiene Visit 2- Continue teaching Discharge instructions- include additional information on smoking cessation , sternal dressing (sternal vac) Visit 3- Continue teaching- Cough and deep breathing, incision monitoring. Choose my plate Visit 4- Continue teaching- Discuss limitations Discuss how they are feeling Discuss progress toward goals Remaining visits- continue teaching and monitoring PREVENA Single Use Negative Wound Therapy System Caregiver Instruction Sheet 1. A Prevena dressing system was applied to the chest incision during surgery , to promote wound healing. It works via a suction device (negative pressure wound therapy) to remove low to moderate levels of exudate (drainage) and infectious materials. We recommend that the device stay in place for up to seven days, from day of surgery. 2. Day of Surgery__/ Day of Removal ____06/28/17 3. The dressing should only be removed by a health childcare provider. Please arrange removal of device to coincide with Home Health visit and or with Nursing staff at Rehab 4. If skin reddening or irritation of skin occurs, or excessive drainage, please notify the Cardiovascular Surgeons office at [phone]. 5. Light showering is permissible; however the pump should be disconnected and placed in safe location, where it will not get wet. The dressing should not be exposed to direct spray or submerged in water. No bath tub / shower only. Ensure the end of the tubing attached to the dressing is facing down so that water does not enter the top of the tube. 6. To remove Prevena dressing: press purple button to turn off device / remove the suction. Then disconnect the tubing from the pump. The fixation strips should be stretched away from the skin and the dressing lifted at one corner and peeled back until it has been fully removed. 7. After removal, it is ok to shower daily using liquid dial soap and clean wash cloth, rinse and pat dry, and leave incision open to air dry. For any concerns regarding Prevena dressing, and or wounds, please contact Mattie Turenr, patient navigator at [phone] or notify the Cardiovascular Surgeons office at [phone]. Incentive spirometry Q1 hr x 10, while awake, also use acapella device hourly whole awake Sternal Breast Bone Precautions: NO pushing or pulling, ( pt must use sternal pillow to support chest with all activities and with coughing ( takes up to 3 months breast bone to heal ) Daily incision care: ok to shower daily, no tub bath. Wash all incisions with liquid dial soap, clean wash cloth to each site, rinse and pat dry. Observe for any signs of infection, such as drainage which is dark yellow, nguyen, green or foul smelling. Immediately report to the surgeon any drainage from the chest incision, or legs, and for any abnormal drainage from the chest tube sites. Notify surgeon if any temp >101.5 degrees F. When specialty dressing removed/ or if you do not have one, continue to shower daily as above, then rinse and pat incision dry and paint with betadine daily x 5 days. Allow steri strips to fall off if you have any. Avoid lotions, creams, salves, oils, etc. for the first month Please see attached forms for additional instructions regarding post Open Heart specialty wound vacuum dressings. OTIS or Prevena , Dressing to be removed by Nursing staff on __06/28/[address] Cedeno patients , please obtain CBC, BMP, PA & Lat CXR in 2 weeks, results to Dr. Cedeno ( prescription will be given) ( ) (Tele: [phone]) , F/U appointment: as per [place] instructions: PCP in 2 weeks, CV surgeon 2 weeks, Repair Servicer 3-4 weeks For any questions regarding incisions/ dressing / meds / post op care or above Symptoms, Wednesday 8am-5pm Heart & Vascular Surgery Office ( Dr. Burrows & Dr. Cedeno), After Hours / Nights (5pm -8am) Weekends and Holidays Please call [facility] ([facility]) Charge Nurse I have seen patient Jefferson Aguero on 06/21/17. My clinical findings support the need for the requested home health care services because: Deconditioned w/ increased weakness I certify that my clinical findings support that this patient is homebound because: Post-op weakness Leena Malcolm Jun 21, 2017 13:34
[2017-06-21] MEDS ORDERED: SODIUM CHLORIDE 0.9% INJ 50 ML ONE (14:12)
[2017-06-21] MEDS ORDERED: DEXMEDETOMIDINE HCL 200 MCG/2 ML VIAL ONE (14:13)
[2017-06-21] MEDS ORDERED: LACTATED RINGER'S 1000 ML INJ 500 ML IV PRN (15:47)
[2017-06-21] MEDS ORDERED: ceFAZolin INJ 1,000 MG VIAL ONE (15:51)
[2017-06-21] MEDS ORDERED: Post-op Orders (for Pharmacy) MISC OTHER ONE (16:00)
[2017-06-21] MEDS ORDERED: SODIUM BICARBONATE 8.4% SOLN 50 MEQ/50 ML VIAL IV PUSH PRN ×2 (16:00)
[2017-06-21] MEDS ORDERED: RESP: ALBUTEROL 2.5 MG/IPRATROPIUM 0.5 MG NEB (PRN) NEB (16:00)
[2017-06-21] MEDS ORDERED: DEXTROSE 50% IN WATER 50 ML VIAL(D50) IV PUSH PRN (16:00)
[2017-06-21] MEDS ORDERED: hydrALAZINE HCL 20 MG/ML VIAL IV PUSH PRN (16:00)
[2017-06-21] MEDS ORDERED: POTASSIUM CHLOR 20 MEQ PREMIX 100 ML IV PRN ×3 (16:00)
[2017-06-21] MEDS ORDERED: CLEVIDIPINE INJ 50 ML IV PRN (16:00)
[2017-06-21] MEDS ORDERED: SODIUM CHLORIDE 0.9% FLUSH 10 ML FLUSH IV FLUSH PRN (16:00)
[2017-06-21] MEDS ORDERED: CALCIUM CHLORIDE 10% 1 GRAM/10 ML VIAL IV PUSH PRN (16:00)
[2017-06-21] MEDS ORDERED: ALBUMIN 5% INJ 250 ML IV PRN (16:00)
[2017-06-21] MEDS ORDERED: ACETAMINOPHEN 650 MG SUPP RECTAL PRN (16:00)
[2017-06-21] MEDS ORDERED: RESP: RACEPINEPHRINE 2.25% 0.5 ML NEB NEB PRN (16:00)
[2017-06-21] MEDS ORDERED: ONDANSETRON HCL 4 MG/2 ML VIAL IV PUSH PRN (16:00)
[2017-06-21] MEDS ORDERED: POTASSIUM CHLORIDE 20 MEQ CONTROLLED RELEASE TAB PO PRN ×2 (16:00)
[2017-06-21] MEDS ORDERED: METOPROLOL TARTRATE 5 MG/5 ML VIAL IV PUSH PRN (16:00)
[2017-06-21] MEDS ORDERED: MAGNESIUM SULFATE INJ 2 GM in SODIUM CHLORIDE 0.9% INJ 100 ML IV PRN ×4 (16:00)
[2017-06-21] MEDS ORDERED: INSULIN REGULAR (IV INFUSION) 100 UNITS in SODIUM CHLORIDE 0.9% INJ 99 ML IV PRN (16:00)
[2017-06-21] MEDS: RESP: ALBUTEROL 2.5 MG/IPRATROPIUM 0.5 MG NEB (SCH) NEB (16:00)
[2017-06-21] MEDS ORDERED: ACETAMINOPHEN 325 MG TAB PO PRN (16:00)
[2017-06-21] MEDS ORDERED: DEXMEDETOMIDINE INJ 200 MCG in SODIUM CHLORIDE 0.9% INJ 50 ML IV PRN (16:00)
--- NOTE | 2017-06-21 16:13 | PD.OP ---
cc: Sharon Cedeno MD; Shoaib Berry MD Operative Report Date of Surgery: Jun 21, 2017 Preoperative Diagnosis: (1) Multi-vessel coronary artery stenosis (2) Non-ST elevation [place] (NSTEMI) (3) Ischemic cardiomyopathy Postoperative Diagnosis: same Procedure: CABG x 3 BANERJEE to LAD - fair SVG to OM - good SVG to PDA - fair EVH YEN Anesthesia: Dr. Farrar Surgeon: Sharon Cedeno [employer] Operator(s): Jigar LENNON Operation and Findings: The risks, benefits, complications, treatment options, and expected outcomes were discussed with the patient. The possibilities of reaction to medication, pulmonary aspiration, perforation of viscus, bleeding, recurrent infection, the need for additional procedures, failure to diagnose a condition, and creating a complication requiring transfusion or operation were discussed with the patient. The patient concurred with the proposed plan, giving informed consent. The site of surgery properly noted/marked. The patient was taken to Operating Room, identified as Jefferson Aguero and the procedure verified as CABG, EVH, YEN. A Time Out was held and the above information confirmed. Standard monitoring lines and Hopper catheter were placed. General anesthesia was induced. The patient was prepped and draped in a sterile fashion. A median sternotomy was performed and electrocautery was used to obtain hemostasis. The left internal mammary artery was procured as a pedicle from the 7th rib to the 1st rib in the usual manner. Simultaneously left greater saphenous vein was procured from the left leg using a minimally invasive endoscopic technique. The vein was prepared for anastomosis and the leg wound was irrigated and closed in 2 layers. The pericardium was opened and a pericardial sling was created using interrupted 0 silk sutures. The patient was heparinized for cardiopulmonary bypass and the distal mammary pedicle was instrumented for anastomosis. The heart was instrumented for cardiopulmonary bypass in the usual manner. Antegrade blood cardioplegia was employed. The patient was placed on cardiopulmonary bypass. An aortic cross-clamp was applied and the heart was arrested using cold blood cardioplegia. Antegrade cardioplegia was administered after he each anastomosis. After adequate arrest, the distal right coronary circulation was investigated and the PDA was opened with a [place] blade and found to be a 1 millimeter diffusely diseased fair target. Saphenous vein was approximated to the PDA artery using a running 7 0 Prolene suture. The graft was measured for length and orientation and the proximal anastomosis was constructed to the ascending aorta using a running 5 0 Prolene suture after creating an aortotomy with a 5 millimeter punch. The 1st circumflex marginal artery was then opened with a [place] blade and found to be a 1.5 millimeter good target. The OM1 artery was intramyocardial. Saphenous vein was approximated to the OM1 artery using a running 7 0 Prolene suture. The graft was measured for length and orientation and was suspended from the pericardium. The distal LAD was opened with a [place] blade and found to be a 1.5 millimeter fair target. The left internal mammary artery was approximated to the LAD using a running 7 0 Prolene suture. The pedicle was attached to the epicardium using interrupted 5 0 silk suture. The patient was systemically rewarmed and received a hotshot dose of warm blood cardioplegia. The aorta was vented and the proximal anastomosis to the OM1 graft was accomplished using a running 5 0 Prolene suture after creating an aortotomy was a 5 millimeter punch. The cross-clamp was removed and all proximal and distal anastomoses were examined for hemostasis. Temporary atrial pacing on wires were positioned and brought out through the skin in the usual manner. The patient was paced at 80 beats per minute and weaned from cardiopulmonary bypass. Protamine was given. There was no adverse reaction. Decannulation was carried out without incident. Wound was checked for hemostasis which was obtained using electrocautery. A 36 [place] mediastinal and 32 [place] left pleural chest tubes were placed and secured to the skin with 0 silk suture. The sternum was closed with stainless steel wire. The fascia was closed with 1. PDS. The subcutaneous tissue was closed using a running 2-0 Vicryl suture. The skin was closed with 4-0 Monocryl. Sterile dressings were placed. At the end of the operation, all sponge, instruments, and needle counts were correct. The patient was transferred to the CVICU in stable condition. Findings: Diffusely diseased calcified coronary arteries XC: 61 min CPB: 71 min Drains: mediastinal x 1 pleural x 1 Complications: none Disposition: to CVICU in stable condition Pacing Wires: 2 atrial Cedeno,Sharon H. MD Jun 21, 2017 16:13
[2017-06-21] MEDS: EPINEPHrine 2 MG/D5W 250 ML IV PRN ×4 (16:30→17:34)
[2017-06-21] MEDS ORDERED: CALCIUM CHLORIDE INJ 1 GM in SODIUM CHLORIDE 0.9% INJ 100 ML IV PRN (17:00)
--- NOTE | 2017-06-21 17:15 | RADRPT ---
EXAM DATE/TIME: 06/21/2017 16:47 [facility] COMPARISON: CHEST SINGLE AP, June 17, 2017, 16:25. INDICATIONS : Post CABG. MEDICAL HISTORY : Renal calculi. SURGICAL HISTORY : Bilateral inguinal hernia repair 06/16/17. ENCOUNTER: Initial ACUITY: 1 day PAIN SCORE: Non-responsive. LOCATION: Bilateral chest FINDINGS: Support apparatus in good position. The mediastinal drain and left chest drain are noted. There is no pneumothorax. Pulmonary vascularity is normal. Mediastinum is mildly prominent. CONCLUSION: Support apparatus in good position. Mildly prominent mediastinum. Juan Daniel Lamar MD FACR on June 21, 2017 at 17:13 Board Certified Radiologist. This report was verified electronically.
[2017-06-21] MEDS: ACETAMINOPHEN 1000 MG/100 ML 100 ML IV SCH ×2 (17:21→23:00)
[2017-06-21] MEDS ORDERED: DEXMEDETOMIDINE 200 MCG/50 ML Premix IV PRN (17:30)
[2017-06-21] MEDS: ACETAMINOPHEN/HYDROcodone 325 MG/5 MG TAB PO PRN ×2 (19:58→23:14)
[2017-06-21] MEDS: ATORVASTATIN 40 MG TAB PO SCH (19:58)
[2017-06-22] VITALS (20 sets, daily range): BP systolic 109–140; BP diastolic 54–68; PULSE 64–94; RESP 14–20; TEMP 97.4–97.9; O2SAT 93–98
[2017-06-22] MEDS: ACETAMINOPHEN/HYDROcodone 325 MG/5 MG TAB PO PRN ×4 (02:32→20:39)
[2017-06-22] MEDS: RESP: ALBUTEROL 2.5 MG/IPRATROPIUM 0.5 MG NEB (SCH) NEB ×3 (04:18→20:15)
[2017-06-22] MEDS: ACETAMINOPHEN 1000 MG/100 ML 100 ML IV SCH ×2 (04:18→10:54)
[2017-06-22 04:54] LABS: HEMATOCRIT 26.1 % (39.0-51.0); MEAN CELL VOLUME 87.5 FL (80.0-100.0); MEAN CORPUSCULAR HEMOGLOBIN 29.9 PG (27.0-34.0); MEAN CORPUSCULAR HGB CONC 34.2 % (32.0-36.0); PLATELET COUNT 225 TH/MM3 (150-450); RED BLOOD COUNT 2.98 MIL/MM3 (4.50-5.90); REVIEW FLAG FINAL; WHITE BLOOD COUNT 10.1 TH/MM3 (4.0-11.0)
[2017-06-22] MEDS: PANTOPRAZOLE SOD 40 MG DELAYED RELEASE TAB PO SCH (05:17)
[2017-06-22 05:27] LABS: BICARBONATE 24.1 MEQ/L (21.0-32.0); MAGNESIUM 1.8 MG/DL (1.5-2.5); POTASSIUM 5.9 MEQ/L (3.5-5.1)
--- NOTE | 2017-06-22 06:10 | RADRPT ---
EXAM DATE/TIME: 06/22/2017 05:32 [facility] COMPARISON: CHEST SINGLE AP, June 21, 2017, 16:47. INDICATIONS : Short of breath. MEDICAL HISTORY : Renal calculi. SURGICAL HISTORY : Bilateral inguinal hernia repair 06/16/17. ENCOUNTER: Subsequent ACUITY: 4 - 6 days PAIN SCORE: 0/10 LOCATION: Bilateral chest FINDINGS: A single view of the chest demonstrates the right IJ central line and left chest tube are in good pos ition. There are numerous intact sternal wires. No infiltrate or mass.. The cardiomediastinal contou rs are unremarkable. Osseous structures are intact. CONCLUSION: Chest tube and right IJ central line in good position. Miah Plata MD on June 22, 2017 at 6:08 Board Certified Radiologist. This report was verified electronically.
[2017-06-22] MEDS: ASPIRIN EC 81 MG TABEC PO SCH (08:21)
[2017-06-22] MEDS: SODIUM CHLORIDE 0.9% FLUSH 10 ML FLUSH IV FLUSH SCH ×2 (08:21→20:41)
[2017-06-22] MEDS: FUROSEMIDE 40 MG/4 ML VIAL IV PUSH SCH ×2 (09:00→17:22)
[2017-06-22] MEDS ORDERED: DEXTROSE 50% IN WATER 50 ML VIAL(D50) IV PUSH PRN (09:45)
[2017-06-22] MEDS ORDERED: GLUCAGON 1 MG/ML VIAL OTHER PRN (09:45)
[2017-06-22] MEDS ORDERED: SOD PHOSPHATE/SOD BIPHOSPHATE (ADULT) ENEMA 133ML RECTAL PRN (09:45)
[2017-06-22] MEDS: CARVEDILOL 3.125 MG TAB PO SCH ×2 (09:45→20:39)
[2017-06-22] MEDS ORDERED: BISACODYL 10 MG SUPP RECTAL PRN (09:45)
[2017-06-22] MEDS: INSULIN ASPART SUPPLEMENTAL SCALE SQ SCH ×4 (10:00→22:00)
--- NOTE | 2017-06-22 11:23 | HHI.PR ---
Subjective Remarks Follow-up severe three-vessel CAD 06/19/17-patient seen and examined, denies any chest pain or shortness of breath. 06/20/17-patient seen and examined, denies any shortness of breath no acute event overnight. Stable 06/21/17-patient seen and examined, currently nothing by mouth. No acute event overnight. Positive for bowel movement 06/22/17-patient seen and examined, he status post CABG 3. Stable this morning and currently afebrile. Objective Vitals Vital Signs Date Time Temp Pulse Resp B/P (MAP) Pulse Ox O2 Delivery O2 Flow Rate FiO2 06/22/17 08:35 93 Nasal Cannula 2.00 06/22/17 07:43 18 06/22/17 07:38 97.6 71 18 139/54 (82) 96 Arterial Line 06/22/17 07:38 71 06/22/17 07:37 96 Nasal Cannula 2.00 06/22/17 03:00 96 Nasal Cannula 2.00 06/22/17 03:00 64 06/22/17 03:00 97.8 65 18 109/64 (79) 96 132/59 (83) 06/22/17 02:00 79 132/62 06/22/17 01:00 70 128/63 06/22/17 00:09 73 134/65 06/21/17 23:59 73 162/76 06/21/17 23:56 73 167/79 06/21/17 23:50 71 163/77 06/21/17 23:37 70 155/73 06/21/17 23:35 71 172/78 06/21/17 23:00 69 06/21/17 23:00 98.1 70 16 134/74 (94) 97 159/76 (103) 06/21/17 23:00 98 Nasal Cannula 2.00 06/21/17 22:35 97 Nasal Cannula 3.00 06/21/17 22:35 95 Nasal Cannula 3.00 06/21/17 22:35 97 Nasal Cannula 3 06/21/17 20:12 35 06/21/17 19:26 35 06/21/17 19:25 94 Bi-Pap 35 06/21/17 19:15 97.3 74 16 115/81 (92) 96 136/74 (94) 06/21/17 19:00 74 06/21/17 19:00 96 Mechanical Ventilator 35 06/21/17 19:00 74 136/74 06/21/17 19:00 35 06/21/17 18:22 78 131/67 06/21/17 18:01 78 06/21/17 17:59 45 06/21/17 17:55 17 06/21/17 17:52 82 125/66 06/21/17 17:34 89 110/71 06/21/17 17:30 81 117/74 06/21/17 17:18 98.6 06/21/17 17:15 87 132/69 06/21/17 17:12 95 Mechanical Ventilator 50 06/21/17 17:05 97.4 88 18 132/63 (86) 95 06/21/17 17:04 88 06/21/17 17:00 88 132/68 06/21/17 16:59 50 06/21/17 16:57 90 06/21/17 16:30 96 50 06/21/17 16:30 88 110/71 I/O 06/21/17 06/21/17 06/21/17 06/22/17 06/22/17 06/22/17 07:00 15:00 23:00 07:00 15:00 23:00 Intake Total 251 ml 4310 ml 1080 ml 104 ml Output Total 300 ml 2075 ml 1185 ml Balance -49 ml 2235 ml -105 ml 104 ml Intake Oral 240 ml 480 ml IV Total 11 ml 1560 ml 350 ml 104 ml Autotransfusion 750 ml Albumin 250 ml Other 2000 ml Output Urine Total 300 ml 525 ml 785 ml Chest Tube Drainage Total 50 ml 400 ml Estimated Blood Loss 1500 ml # Bowel Movements 1 0 0 Result Diagram: 06/22/176 06/22/17 042 Objective Remarks GENERAL: NAD SKIN: Warm and dry. HEAD: Normocephalic. EYES: No scleral icterus. No injection or drainage. NECK: Supple, trachea midline. No JVD or lymphadenopathy. CARDIOVASCULAR: Regular rate and rhythm without murmurs, gallops, or rubs. Dressing over sternal, chest tube in place RESPIRATORY: Breath sounds equal bilaterally. No accessory muscle use. GASTROINTESTINAL: Abdomen soft, non-tender, nondistended. MUSCULOSKELETAL: No cyanosis, or edema. BACK: Nontender without obvious deformity. No CVA tenderness. Procedures Status post CABG x 3 11/13/17 Status post laparoscopic bilateral inguinal hernia 06/17/17 A/P Problem List: (1) Multi-vessel coronary artery stenosis ICD Code: I25.10 - Atherosclerotic heart disease of [place] coronary artery without angina pectoris (2) Non-ST elevation [place] (NSTEMI) ICD Code: I21.4 - Non-ST elevation (NSTEMI) myocardial infarction Status: Acute (3) Ischemic cardiomyopathy ICD Code: I25.5 - Ischemic cardiomyopathy Status: Chronic Assessment and Plan 81-year-old man with Multivessel coronary artery disease Status post left heart catheterization Status post CABG x 3 06/21/17 Management per cardio thoracic surgery Chest tube management per CTS Continue with Coreg, Lipitor DEVIKA inhibitor has been on hold secondary to plan CABG Non-ST elevation [place] Status post left heart catheterization Cardiology following and continue with above medical regiment Ischemic cardiomyopathy EF 30-35% by both echo and cath. No evidence for acute CHF. Continue with beta cristine, Lasix 40 IV twice a day Status post laparoscopic bilateral inguinal hernia 06/17/17 Continue current postop care DVT prophylaxis: Per CTS Carlos Felipe MD Jun 22, 2017 11:23
[2017-06-22] MEDS: METOCLOPRAMIDE HCL 10 MG/2 ML VIAL IV PUSH SCH ×2 (13:08→17:22)
--- NOTE | 2017-06-22 14:06 | EKG ---
Date Performed: 06/22/2017 Time Performed: 04:49:10 PTAGE: 81 years EKG: Sinus rhythm Prolonged QT interval Possible left ventricular hypertrophy Extensive ST-T changes may be due to hyp ertrophy and/or ischemia Abnormal ECG PREVIOUS TRACING : 06/16/2017 19.58 Compared to prior tracing no significant change DOCTOR: Arvind Blount Interpretating Date/Time 06/22/2017 14:02:51
--- NOTE | 2017-06-22 15:53 | PD.CAR.PN ---
CVT Progress Note Subjective/Hospital Course: 81-year-old male who recently moved to the [place] area about a year and a half ago. , he apparently recent UTI where he saw Dr. Blanc who noticed the bilateral inguinal hernias and then sent him to Dr. Grove. The patient underwent laparoscopic bilateral hernia repair at an outpatient surgery center on 06/[address] Grove. They noticed some perioperative and postop EKG changes where he had some ST-segment changes seen on the monitor and he was transferred to [facility]. His troponins were 2.43 then 5.58. EKG did show some poor R-wave progression in the anterior leads and T-wave inversion in the lateral leads. He did undergo cardiac cath by Dr. Shoaib Berry which showed an EF of 30%, left main disease at 15%. The LAD had an 80% stenosis proximally. The second diagonal had a 60% ostial lesion. The RCA was totally occluded, however, there were some collaterals. The echocardiogram also showed EF of 30-35 %, trace MR, trace aortic insufficiency, some global systolic dysfunction. Normal left atrial and right atrial size. We were consulted to evaluate for coronary artery bypass grafting. PAST MEDICAL HISTORY The patient has basically no medical history, has not seen a doctor in quite some time, has been rather healthy. 06/20/17 Denies chest pain/symptoms. c/o constipation 06/21/17 surgery today CABG x 3, BANERJEE to LAD - fair, SVG to OM - good, SVG to PDA - fair, EVH, YEN Objective: GENERAL: SKIN: Warm and dry.prevena dressing to chest devika wrap to left leg HEAD: Normocephalic. EYES: No scleral icterus. No injection or drainage. NECK: Supple, trachea midline. No JVD or lymphadenopathy. CARDIOVASCULAR: Regular rate and rhythm without murmurs, gallops, or rubs. RESPIRATORY: Breath sounds equal bilaterally. No accessory muscle use. GASTROINTESTINAL: Abdomen distended + BS bandage dressing to umbilicus soft, non-tender, nondistended. MUSCULOSKELETAL: No cyanosis, or edema. BACK: Nontender without obvious deformity. No CVA tenderness. Vital Signs Date Time Temp Pulse Resp B/P (MAP) Pulse Ox O2 Delivery O2 Flow Rate FiO2 06/22/17 12:01 80 06/22/17 11:01 95 Nasal Cannula 2.00 06/22/17 11:01 97.8 81 20 140/68 (92) 95 06/22/17 11:00 76 06/22/17 08:35 93 Nasal Cannula 2.00 06/22/17 07:43 18 06/22/17 07:38 97.6 71 18 139/54 (82) 96 Arterial Line 06/22/17 07:38 71 06/22/17 07:37 96 Nasal Cannula 2.00 06/22/17 03:00 96 Nasal Cannula 2.00 06/22/17 03:00 64 06/22/17 03:00 97.8 65 18 109/64 (79) 96 132/59 (83) 06/22/17 02:00 79 132/62 06/22/17 01:00 70 128/63 06/22/17 00:09 73 134/65 06/21/17 23:59 73 162/76 06/21/17 23:56 73 167/79 06/21/17 23:50 71 163/77 06/21/17 23:37 70 155/73 06/21/17 23:35 71 172/78 06/21/17 23:00 69 06/21/17 23:00 98.1 70 16 134/74 (94) 97 159/76 (103) 06/21/17 23:00 98 Nasal Cannula 2.00 06/21/17 22:35 97 Nasal Cannula 3.00 06/21/17 22:35 95 Nasal Cannula 3.00 06/21/17 22:35 97 Nasal Cannula 3 06/21/17 20:12 35 06/21/17 19:26 35 06/21/17 19:25 94 Bi-Pap 35 06/21/17 19:15 97.3 74 16 115/81 (92) 96 136/74 (94) 06/21/17 19:00 74 06/21/17 19:00 96 Mechanical Ventilator 35 06/21/17 19:00 74 136/74 06/21/17 19:00 35 06/21/17 18:22 78 131/67 06/21/17 18:01 78 06/21/17 17:59 45 06/21/17 17:55 17 06/21/17 17:52 82 125/66 06/21/17 17:34 89 110/71 06/21/17 17:30 81 117/74 06/21/17 17:18 98.6 06/21/17 17:15 87 132/69 06/21/17 17:12 95 Mechanical Ventilator 50 06/21/17 17:05 97.4 88 18 132/63 (86) 95 06/21/17 17:04 88 06/21/17 17:00 88 132/68 06/21/17 16:59 50 06/21/17 16:57 90 06/21/17 16:30 96 50 06/21/17 16:30 88 110/71 Labs: Laboratory Tests Test 06/22/17 04:26 White Blood Count 10.1 TH/MM3 (4.0-11.0) Red Blood Count 2.98 MIL/MM3 (4.50-5.90) Hemoglobin 8.9 GM/DL (13.0-17.0) Hematocrit 26.1 % (39.0-51.0) Mean Corpuscular Volume 87.5 FL (80.0-100.0) Mean Corpuscular Hemoglobin 29.9 PG (27.0-34.0) Mean Corpuscular Hemoglobin Concent 34.2 % (32.0-36.0) Red Cell Distribution Width 14.0 % (11.6-17.2) Platelet Count 225 TH/MM3 (150-450) Mean Platelet Volume 8.2 FL (7.0-11.0) Blood Urea Nitrogen 12 MG/DL (7-18) Creatinine 0.49 MG/DL (0.60-1.30) Random Glucose 110 MG/DL (74-106) Calcium Level 7.6 MG/DL (8.5-10.1) Magnesium Level 1.8 MG/DL (1.5-2.5) Sodium Level 135 MEQ/L (136-145) Potassium Level 5.9 MEQ/L (3.5-5.1) Chloride Level 104 MEQ/L (98-107) Carbon Dioxide Level 24.1 MEQ/L (21.0-32.0) Anion Gap 7 MEQ/L (5-15) Estimat Glomerular Filtration Rate 163 ML/MIN (>89) Result Diagram: 06/22/17 0426 06/22/17 0426 Telemetry: NSR (1) Non-ST elevation [place] (NSTEMI) Plan: Cardiac enzymes clearly consistent with NSTEMI. . 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 resume DEVIKA inhibitor / when stable (2) Ischemic cardiomyopathy Plan: EF 30-35% by both echo and cath. No evidence for acute CHF. Rec continue beta cristine, DEVIKA-I. I suspect his EF will improve after CABG. (3) s/p recent lap bilateral hernia repair (4) S/P CABG x 3 Plan: ASA, statin , BB Leena Malcolm Jun 22, 2017 15:53
[2017-06-22] MEDS ORDERED: ASPIRIN EC 81 MG TABEC PO SCH (16:00)
[2017-06-22] MEDS ORDERED: METOPROLOL TARTRATE 25 MG TAB PO SCH (16:00)
[2017-06-22] MEDS: DOCUSATE SODIUM 100 MG CAP PO SCH (20:38)
[2017-06-22] MEDS: ATORVASTATIN 40 MG TAB PO SCH (20:39)
[2017-06-22] MEDS: SENNOSIDES 8.6 MG TAB PO SCH (20:39)
[2017-06-22 22:43] LABS: BICARBONATE 25.4 MEQ/L (21.0-32.0); POTASSIUM 3.9 MEQ/L (3.5-5.1)
[2017-06-23] VITALS (28 sets, daily range): BP systolic 104–134; BP diastolic 58–65; PULSE 78–104; RESP 16–18; TEMP 97.5–98.4; O2SAT 93–99
[2017-06-23] MEDS: METOCLOPRAMIDE HCL 10 MG/2 ML VIAL IV PUSH SCH ×2 (01:04→05:21)
[2017-06-23] MEDS: ACETAMINOPHEN/HYDROcodone 325 MG/5 MG TAB PO PRN ×6 (01:13→20:48)
[2017-06-23] MEDS: INSULIN ASPART SUPPLEMENTAL SCALE SQ SCH ×7 (02:00→21:00)
[2017-06-23] MEDS: PANTOPRAZOLE SOD 40 MG DELAYED RELEASE TAB PO SCH (05:21)
[2017-06-23 05:27] LABS: AUTOMATED NEUTROPHIL # 12.1 TH/MM3 (1.8-7.7); BASOPHIL % 0.1 % (0.0-2.0); EOSINOPHIL % 0.1 % (0.0-4.0); HEMATOCRIT 36.9 % (39.0-51.0); HEMO FLAGS DIFF FINAL; LYMPH % 10.2 % (9.0-44.0); LYMPHOCYTE # 1.6 TH/MM3 (1.0-4.8); MEAN CELL VOLUME 95.6 FL (80.0-100.0); MEAN CORPUSCULAR HEMOGLOBIN 31.7 PG (27.0-34.0); MEAN CORPUSCULAR HGB CONC 33.2 % (32.0-36.0); MONO % 12.4 % (0.0-8.0); NEUT % 77.2 % (16.0-70.0); PLATELET COUNT 117 TH/MM3 (150-450); RED BLOOD COUNT 3.86 MIL/MM3 (4.50-5.90); RED CELL DISTRIBUTION WIDTH 13.1 % (11.6-17.2); WHITE BLOOD COUNT 15.7 TH/MM3 (4.0-11.0)
[2017-06-23 05:42] LABS: BICARBONATE 26.8 MEQ/L (21.0-32.0); MAGNESIUM 2.4 MG/DL (1.5-2.5); POTASSIUM 4.2 MEQ/L (3.5-5.1)
[2017-06-23] MEDS: RESP: ALBUTEROL 2.5 MG/IPRATROPIUM 0.5 MG NEB (SCH) NEB ×2 (08:08→12:33)
[2017-06-23] MEDS: LACTULOSE SYRUP 20 GM/30 ML CUP PO SCH (08:54)
[2017-06-23] MEDS: MAGNESIUM HYDROXIDE SUSP 30 ML CUP PO SCH (08:54)
[2017-06-23] MEDS: ASPIRIN EC 81 MG TABEC PO SCH (08:55)
[2017-06-23] MEDS: FUROSEMIDE 40 MG/4 ML VIAL IV PUSH SCH ×2 (08:55→17:39)
[2017-06-23] MEDS: DOCUSATE SODIUM 100 MG CAP PO SCH ×2 (08:55→20:43)
[2017-06-23] MEDS: POLYETHYLENE GLYCOL 17 GM PKG PO SCH (08:55)
[2017-06-23] MEDS: MULTIVITAMINS/MINERALS THERAPEUTIC TAB PO SCH (08:55)
[2017-06-23] MEDS: CARVEDILOL 3.125 MG TAB PO SCH ×2 (08:55→20:43)
[2017-06-23] MEDS: SODIUM CHLORIDE 0.9% FLUSH 10 ML FLUSH IV FLUSH SCH ×2 (08:55→20:45)
[2017-06-23] MEDS ORDERED: BISACODYL 10 MG SUPP RECTAL ONE (10:30)
[2017-06-23] MEDS ORDERED: SOD PHOSPHATE/SOD BIPHOSPHATE (ADULT) ENEMA 133ML PR ONE (11:00)
--- NOTE | 2017-06-23 14:24 | HHI.PR ---
Subjective Remarks Follow-up severe three-vessel CAD 06/19/17-patient seen and examined, denies any chest pain or shortness of breath. 06/20/17-patient seen and examined, denies any shortness of breath no acute event overnight. Stable 06/21/17-patient seen and examined, currently nothing by mouth. No acute event overnight. Positive for bowel movement 06/22/17-patient seen and examined, he status post CABG 3. Stable this morning and currently afebrile. 06/23 PATIENT SEEN AND EXAMINED- DIET ADVANCED- NO NEW COMPLAINTS DW RN AND PT AND Objective Vitals Vital Signs Date Time Temp Pulse Resp B/P (MAP) Pulse Ox O2 Delivery O2 Flow Rate FiO2 06/23/17 11: 98.2 96 16 134/61 (85) 93 06/23/17 11: 93 Nasal Cannula 2.00 06/23/17 08:10 99 Nasal Cannula 1.00 06/23/17 07:18 97.5 85 16 131/60 (83) 97 06/23/17 07:18 97 Nasal Cannula 2.00 06/23/17 06:30 14 06/23/17 06:00 78 06/23/17 05:00 86 06/23/17 04:00 80 06/23/17 03:49 96 Nasal Cannula 2.00 06/23/17 03:00 78 06/23/17 03:00 97.6 81 16 104/58 (73) 96 06/23/17 02:00 82 06/23/17 01:00 82 06/23/17 00:00 78 06/22/17 23:00 82 06/22/17 23:00 96 Nasal Cannula 2.00 06/22/17 23:00 97.6 82 14 113/58 (76) 96 06/22/17 22:00 82 06/22/17 21:00 94 06/22/17 20:18 96 Nasal Cannula 2.00 06/22/17 20:00 88 06/22/17 19:30 97.4 86 16 140/65 (90) 98 06/22/17 19:15 96 Nasal Cannula 2.00 06/22/17 19:00 80 06/22/17 18:01 78 06/22/17 17:00 76 06/22/17 16:00 82 11/14/17 15:01 96 Nasal Cannula 2.00 06/22/17 15:01 97.9 79 20 126/63 (84) 96 06/22/17 15:00 82 I/O 06/22/17 06/22/17 06/22/17 06/23/17 06/23/17 06/23/17 07:00 15:00 23:00 07:00 15:00 23:00 Intake Total 1080 ml 304 ml 600 ml 720 ml Output Total 1185 ml 1205 ml 1090 ml Balance -105 ml 304 ml -605 ml -370 ml Intake Oral 480 ml 600 ml 720 ml IV Total 350 ml 304 ml Albumin 250 ml Output Urine Total 785 ml 1205 ml 1000 ml Chest Tube Drainage Total 400 ml 90 ml # Voids 6 # Bowel Movements 0 0 Result Diagram: 06/23/17 0500 06/23/17 0500 Other Results Laboratory Tests Test 06/21/17 04:25 06/22/17 04:26 06/22/17 21:10 06/23/17 05:00 White Blood Count 7.7 TH/MM3 10.1 TH/MM3 15.7 TH/MM3 Red Blood Count 4.50 MIL/MM3 2.98 MIL/MM3 3.86 MIL/MM3 Hemoglobin 14.5 GM/DL 8.9 GM/DL 12.2 GM/DL Hematocrit 42.8 % 26.1 % 36.9 % Mean Corpuscular Volume 95.1 FL 87.5 FL 95.6 FL Mean Corpuscular Hemoglobin 32.3 PG 29.9 PG 31.7 PG Mean Corpuscular Hemoglobin Concent 33.9 % 34.2 % 33.2 % Red Cell Distribution Width 12.7 % 14.0 % 13.1 % Platelet Count 135 TH/MM3 225 TH/MM3 117 TH/MM3 Mean Platelet Volume 8.5 FL 8.2 FL 8.6 FL Activated Partial Thromboplast Time 42.4 SEC Blood Urea Nitrogen 12 MG/DL 24 MG/DL 26 MG/DL Creatinine 0.49 MG/DL 1.10 MG/DL 0.88 MG/DL Random Glucose 110 MG/DL 131 MG/DL 125 MG/DL Calcium Level 7.6 MG/DL 8.0 MG/DL 8.1 MG/DL Magnesium Level 1.8 MG/DL 2.4 MG/DL Sodium Level 135 MEQ/L 139 MEQ/L 142 MEQ/L Potassium Level 5.9 MEQ/L 3.9 MEQ/L 4.2 MEQ/L Chloride Level 104 MEQ/L 106 MEQ/L 107 MEQ/L Carbon Dioxide Level 24.1 MEQ/L 25.4 MEQ/L 26.8 MEQ/L Anion Gap 7 MEQ/L 8 MEQ/L 8 MEQ/L Estimat Glomerular Filtration Rate 163 ML/MIN 64 ML/MIN 83 ML/MIN Neutrophils (%) (Auto) 77.2 % Lymphocytes (%) (Auto) 10.2 % Monocytes (%) (Auto) 12.4 % Eosinophils (%) (Auto) 0.1 % Basophils (%) (Auto) 0.1 % Neutrophils # (Auto) 12.1 TH/MM3 Lymphocytes # (Auto) 1.6 TH/MM3 Monocytes # (Auto) 2.0 TH/MM3 Eosinophils # (Auto) 0.0 TH/MM3 Basophils # (Auto) 0.0 TH/MM3 CBC Comment DIFF FINAL Differential Comment Imaging Last Impressions Chest X-Ray 06/22/17 0500 Signed Impressions: Service Date/Time: Thursday, June 22, 2017 05:32 - CONCLUSION: Chest tube and right IJ central line in good position. Miah Plata MD Lower Extremity Ultrasound 06/17/17 0000 Signed Impressions: Service Date/Time: June 19:15 - CONCLUSION: Patent greater saphenous veins bilaterally with measurements above. Michael Bradford Jr., MD Carotid Artery Ultrasound 06/17/17 0000 Signed Impressions: Service Date/Time: June 19:36 - CONCLUSION: 1. Calcified plaque involving the carotid arteries bilaterally without hemodynamically significant stenosis involving either carotid. 2. Antegrade flow involving both vertebral arteries. Michael Bradford Jr., MD Objective Remarks GENERAL: Awake alert oriented talkative and cooperative --oriented 3 SKIN: Warm and dry. Chest is dressed HEAD: Atraumatic. Normocephalic. EYES: Pupils equal and round. No scleral icterus. No injection or drainage. Extraocular muscles intact ENT: No nasal bleeding or discharge. Mucous membranes pink and moist. Tongue is midline NECK: Trachea midline. No JVD. Supple CARDIOVASCULAR: Regular rate and rhythm. S1-S2 no S3 or S4 RESPIRATORY: No accessory muscle use. Clear to auscultation. Breath sounds equal bilaterally. GASTROINTESTINAL: Abdomen soft, non-tender, nondistended. Hepatic and splenic margins not palpable. MUSCULOSKELETAL: Extremities without clubbing, cyanosis, or edema. No obvious deformities. NEUROLOGICAL: Awake and alert. No obvious cranial nerve deficits. Motor grossly within normal limits. 4 out of 5 muscle strength in the arms and legs. Normal speech. PSYCHIATRIC: Appropriate mood and affect; insight and judgment normal. Procedures Status post CABG x 3 06/21/17 Status post laparoscopic bilateral inguinal hernia 06/17/17 Medications and IVs Current Medications Ondansetron HCl (Zofran Inj) 4 mg Q6H PRN IV PUSH NAUSEA; Start 06/16/17 at 18: 00; Stop 06/21/17 at 16:02; Status DC Lorazepam (Ativan Inj) 1 mg Q6H PRN IV ANXIETY Last administered on 06/18/17 20:28; Start 06/16/17 at 18:00; Stop 06/20/17 at 11:04; Status DC Acetaminophen/ Hydrocodone Bitart ([place] 5-325 Mg) 1 tab Q4H PRN PO PAIN 1-10 ; Start 06/16/17 at 18:00; Stop 06/21/17 at 16:15; Status DC Morphine Sulfate (Morphine Inj) 3 mg Q2H PRN IV SEVERE PAIN 1-10; Start at 18:00; Stop 06/20/17 at 11:04; Status DC Sodium Chloride 1,000 ml @ 0 mls/hr Q0M IV ; Start 06/16/17 at 18:00; Stop at 09:42; Status DC Influenza Virus Vaccine (Flu (Quadrivalent) Vaccine Inj) 0.5 ml ONCE ONCE IM Last administered on 06/17/17 09:09; Start 06/17/17 at 10:00; Stop 06/17/17 at 10:01; Status DC Pneumococcal Polyvalent Vaccine (Pneumovax-23 Inj) 25 mcg ONCE ONCE IM Last administered on 06/17/17 09:10; Start 06/17/17 at 10:00; Stop 06/17/17 at 10:01 ; Status DC Carvedilol (Coreg) 3.125 mg Q12HR PO Last administered on 06/21/17 09:09; Start 06/16/17 at 21:00; Stop 06/21/17 at 15:57; Status DC Enalapril Maleate (Vasotec) 2.5 mg DAILY PO Last administered on 06/17/17 09: 00; Start 06/17/17 at 09:00; Stop 06/20/17 at 11:04; Status DC Aspirin (Ecotrin Ec) 81 mg DAILY PO ; Start 06/16/17 at 20:30; Stop 06/18/17 at 07:41; Status DC Sodium Chloride 1,000 ml @ 100 mls/hr Q10H IV Last administered on 06/21/17 16:53; Start 06/17/17 at 08:08; Stop 06/22/17 at 08:07; Status DC Aspirin (Aspirin) 325 mg SORT LINE PO Last administered on 06/17/17 09:09; Start 06/17/17 at 08:15; Stop 06/18/17 at 07:41; Status DC Diphenhydramine HCl (Benadryl) 50 mg SORT LINE PO ; Start 06/17/17 at 08:15; Stop 06/21/17 at 08:14; Status DC Diazepam (Valium) 10 mg SORT LINE PO ; Start 06/17/17 at 08:15; Stop 06/21/17 at 08:14; Status DC Midazolam HCl (Versed Inj) 2 mg STK-MED ONCE .ROUTE Last administered on 14:03; Start 06/17/17 at 13:36; Stop 06/17/17 at 13:37; Status DC Verapamil HCl (Isoptin Inj) 5 mg STK-MED ONCE .ROUTE Last administered on 14:06; Start 06/17/17 at 13:36; Stop 06/17/17 at 13:37; Status DC Heparin Sodium (Porcine) (Heparin Inj) 10,000 units STK-MED ONCE .ROUTE Last administered on 06/17/17 14:06; Start 06/17/17 at 13:36; Stop 06/17/17 at 13:37 ; Status DC Nitroglycerin 5 ml @ As Directed STK-MED ONCE .ROUTE Last administered on 14:06; Start 06/17/17 at 13:36; Stop 06/17/17 at 13:37; Status DC Heparin Sodium/ Sodium Chloride 1,000 ml @ As Directed STK-MED ONCE .ROUTE Last administered on 06/17/17 13:37; Start 06/17/17 at 13:37; Stop 06/17/17 at 13:38; Status DC Fentanyl Citrate (fentaNYL INJ) 100 mcg STK-MED ONCE .ROUTE Last administered on 06/17/17 14:04; Start 06/17/17 at 14:02; Stop 06/17/17 at 14:03; Status DC Heparin Sodium/ Sodium Chloride 1,000 ml @ As Directed STK-MED ONCE .ROUTE Last administered on 06/17/17 14:48; Start 06/17/17 at 14:48; Stop 06/17/17 at 14:49; Status DC Aspirin (Ecotrin Ec) 81 mg DAILY PO Last administered on 06/23/17 08:55; Start 06/18/17 at 09:00 Iohexol (OMNIPAQUE 350 INJ (Crm Coordinator)) 50 ml STK-MED ONCE OTHER ; Start at 17:39; Stop 06/18/17 at 10:27; Status DC Iohexol (OMNIPAQUE 350 INJ (Crm Coordinator)) 100 ml STK-MED ONCE OTHER ; Start at 17:39; Stop 06/18/17 at 10:27; Status DC Magnesium Hydroxide (Milk Of Magnesia Liq) 30 ml DAILY PRN PO constipation Last administered on 06/20/17 11:22; Start 06/18/17 at 14:45 Heparin Sodium/ Dextrose 250 ml @ 10 mls/hr TITRATE PRN IV Coagulation Management Last administered on 06/20/17 22:28; Start 06/18/17 at 16:45; Stop 06/21/17 at 15:57; Status DC Sodium Chloride (NS Flush) 2 ml BID IV FLUSH Last administered on 06/19/17 21 :19; Start 06/18/17 at 21:00; Stop 06/21/17 at 16:11; Status DC Sodium Chloride (NS Flush) 2 ml UNSCH PRN IV FLUSH FLUSH AFTER USING IV ACCESS ; Start 06/18/17 at 16:45; Stop 06/21/17 at 16:11; Status DC Papaverine HCl 60 mg/Nitroglycerin 100 mcg/Diltiazem HCl 100 mg/Sodium Chloride 100 ml @ 0 mls/hr SORT LINE IRRIGATION ; Start 06/18/17 at 16:45; Stop at 09:42; Status DC Cefazolin Sodium 500 mg/Sodium Chloride 505 ml @ 0 mls/hr SORT LINE IRRIGATION ; Start 06/18/17 at 16:45; Stop 06/22/17 at 09:42; Status DC Cefazolin Sodium/ Dextrose 50 ml @ 150 mls/hr SORT LINE IV Last administered on 06/21/17 12:10; Start 06/18/17 at 16:45; Stop 06/21/17 at 16:05; Status DC Metoprolol Tartrate (Lopressor) 12.5 mg SORT LINE PO ; Start 06/18/17 at 16:45; Stop 06/22/17 at 09:43; Status DC Chlorhexidine Gluconate (Hibiclens 4% Top Soln) 1 applic SORT LINE TOPICAL Last administered on 06/20/17 21:31; Start 06/18/17 at 16:45; Stop 06/22/17 at 09 :43; Status DC Insulin Human Regular 100 units/ Sodium Chloride 100 ml @ 3 mls/hr TITRATE PRN IV for blood glucose control Last administered on 06/21/17 16:50; Start 06/18 at 16:45; Stop 06/21/17 at 16:06; Status DC Dextrose (D50w (Vial) Inj) 50 ml UNSCH PRN IV PUSH HYPOGLYCEMIA-SEE COMMENTS; Start 06/18/17 at 16:45; Stop 06/21/17 at 16:06; Status DC Atorvastatin Calcium (Lipitor) 40 mg HS PO Last administered on 06/22/17 20: 39; Start 06/18/17 at 21:00 Sodium Biphosphate/ Sodium Phosphate (Fleets Enema (Adult)) 133 ml NOW ONCE RECTAL Last administered on 06/20/17 17:30; Start 06/20/17 at 18:00; Stop 06/20/17 at 18:01; Status DC Heparin Sodium (Porcine) (Heparin Inj) 10,000 units STK-MED ONCE .ROUTE ; Start 06/21/17 at 11:09; Stop 06/22/17 at 09:43; Status DC Vancomycin HCl (Vancomycin Inj) 3,000 mg STK-MED ONCE .ROUTE ; Start 06/21/17 at 11:09; Stop 06/22/17 at 09:43; Status DC Multi-Ingred Electrol/Mineral Irrig 2,000 ml @ As Directed STK-MED ONCE .ROUTE ; Start 06/21/17 at 11:10; Stop 06/22/17 at 09:42; Status DC Potassium Chloride (KCl Inj) 2 meq STK-MED ONCE .ROUTE ; Start 06/21/17 at 11: 10; Stop 06/22/17 at 09:43; Status DC Potassium Chloride (KCl Inj) 2 meq STK-MED ONCE .ROUTE ; Start 06/21/17 at 11: 11; Stop 06/22/17 at 09:43; Status DC Potassium Chloride (KCl Inj) 2 meq STK-MED ONCE .ROUTE ; Start 06/21/17 at 11: 11; Stop 06/22/17 at 09:43; Status DC Sodium Bicarbonate 50 ml @ As Directed STK-MED ONCE .ROUTE ; Start 06/21/17 at 11:11; Stop 06/22/17 at 09:42; Status DC Heparin Sodium (Porcine) (Heparin Inj) 10,000 units STK-MED ONCE .ROUTE ; Start 06/21/17 at 11:12; Stop 06/22/17 at 09:43; Status DC Cefazolin Sodium/ Dextrose 50 ml @ As Directed STK-MED ONCE .ROUTE ; Start at 11:24; Stop 06/22/17 at 09:42; Status DC Methylprednisolone Sodium Succinate (SoluMEDROL INJ) 125 mg STK-MED ONCE .ROUTE Last administered on 06/21/17t 12:19; Start 06/21/17 at 12:17; Stop at 09:43; Status DC Sodium Chloride 50 ml @ As Directed STK-MED ONCE .ROUTE ; Start 06/21/17 at 14: 12; Stop 06/22/17 at 09:42; Status DC Dexmedetomidine HCl (Precedex Inj) 200 mcg STK-MED ONCE .ROUTE ; Start at 14:13; Stop 06/21/17 at 14:14; Status DC Cefazolin Sodium (Ancef Inj) 1,000 mg STK-MED ONCE .ROUTE Last administered on 06/21/17t 16:00; Start 06/21/17 at 15:51; Stop 06/22/17 at 09:43; Status DC Sodium Chloride (NS Flush) 2 ml BID IV FLUSH Last administered on 06/23/17 08 :55; Start 06/21/17 at 21:00 Sodium Chloride (NS Flush) 2 ml UNSCH PRN IV FLUSH FLUSH AFTER USING IV ACCESS ; Start 06/21/17 at 16:00 Dexmedetomidine HCl 200 mcg/ Sodium Chloride 52 ml @ 4.35 mls/hr TITRATE PRN IV SEDATION Last administered on 06/21/17 16:30; Start 06/21/17 at 16:00; Stop 06/21/17 at 17:30; Status DC Clevidipine 50 ml @ 2 mls/hr TITRATE PRN IV Maintain BP < 140/90 mmHg Last administered on 06/21/17 23:35; Start 06/21/17 at 16:00; Stop 06/22/17 at 09 :42; Status DC Albumin Human 250 ml @ 250 mls/hr UNSCH PRN IV SEE LABEL COMMENTS Last administered on 06/22/17 02:59; Start 06/21/17 at 16:00; Stop 06/22/17 at 09 :42; Status DC Lactated Ringer's 500 ml @ 500 mls/hr Q1H PRN IV SEE LABEL COMMENTS; Start at 15:47; Stop 06/22/17 at 09:42; Status DC Miscellaneous Information (Post-op Orders (for Pharmacy)) STAT ONCE OTHER ; Start 06/21/17 at 16:00; Stop 06/21/17 at 16:18; Status DC Cefazolin Sodium 1000 mg/Sodium Chloride 100 ml @ 200 mls/hr Q8H IV Last administered on 06/23/17 04:00; Start 06/21/17 at 20:00; Stop 06/23/17 at 04 :29; Status DC Pantoprazole Sodium (Protonix) 40 mg DAILY@06 PO Last administered on 05:21; Start 06/22/17 at 06:00 Acetaminophen (Tylenol) 650 mg Q4H PRN PO TEMPERATURE > 101 F; Start 06/21/17 at 16:00 Acetaminophen (Tylenol Supp) 650 mg Q4H PRN RECTAL TEMPERATURE > 101 F; Start 06/21/17 at 16:00; Stop 06/22/17 at 09:42; Status DC Acetaminophen 100 ml @ 400 mls/hr Q6H IV Last administered on 06/22/17 10:54 ; Start 06/21/17 at 17:00; Stop 06/22/17 at 11:14; Status DC Acetaminophen/ Hydrocodone Bitart ([place] 5-325 Mg) 1 tab Q3H PRN PO PAIN SCALE 1 TO 5 Last administered on 06/23/17 08:55; Start 06/21/17 at 16:00; Stop 06/23/17 at 11:18; Status DC Fentanyl Citrate (fentaNYL INJ) 25 mcg Q1H PRN IV PUSH BREAKTHROUGH PAIN Last administered on 06/22/17 08:56; Start 06/21/17 at 16:00; Stop 06/22/17 at 15 :58; Status DC Ondansetron HCl (Zofran Inj) 4 mg Q6H PRN IV PUSH NAUSEA OR VOMITING; Start at 16:00 Hydralazine HCl (Apresoline Inj) 10 mg Q4H PRN IV PUSH SEE LABEL COMMENTS; Start 06/21/17 at 16:00 Metoprolol Tartrate (Lopressor Inj) 2.5 mg Q1H PRN IV PUSH SEE LABEL COMMENTS; Start 06/21/17 at 16:00; Stop 06/22/17 at 09:43; Status DC Potassium Chloride 100 ml @ 50 mls/hr UNSCH PRN IV SEE LABEL COMMENTS Last administered on 06/21/17 16:56; Start 06/21/17 at 16:00; Stop 06/21/17 at 16 :56; Status DC Potassium Chloride 100 ml @ 50 mls/hr UNSCH PRN IV SEE LABEL COMMENTS; Start 06/21/17 at 16:00; Stop 06/22/17 at 09:42; Status DC Potassium Chloride 100 ml @ 50 mls/hr UNSCH PRN IV SEE LABEL COMMENTS; Start 06/21/17 at 16:00; Stop 06/22/17 at 09:42; Status DC Potassium Chloride (KCl) 20 meq UNSCH PRN PO SEE LABEL COMMENTS; Start at 16:00; Stop 06/22/17 at 09:43; Status DC Potassium Chloride (KCl) 40 meq UNSCH PRN PO SEE LABEL COMMENTS; Start at 16:00; Stop 06/22/17 at 09:43; Status DC Magnesium Sulfate 2 gm/Sodium Chloride 104 ml @ 100 mls/hr UNSCH PRN IV SEE LABEL COMMENTS; Start 06/21/17 at 16:00; Stop 06/22/17 at 09:42; Status DC Magnesium Sulfate 2 gm/Sodium Chloride 104 ml @ 50 mls/hr UNSCH PRN IV SEE LABEL COMMENTS Last administered on 06/22/17 06:25; Start 06/21/17 at 16:00; Stop 06/22/17 at 06:25; Status DC Calcium Chloride 1 gm/Sodium Chloride 110 ml @ 100 mls/hr UNSCH PRN IV SEE LABEL COMMENTS Last administered on 06/21/17 21:11; Start 06/21/17 at 17:00; Stop 06/21/17 at 21:12; Status DC Calcium Chloride (Calcium Chloride Inj) 0.5 gm UNSCH PRN IV PUSH SEE LABEL COMMENTS; Start 06/21/17 at 16:00; Stop 06/22/17 at 09:43; Status DC Insulin Human Regular 100 units/ Sodium Chloride 100 ml @ 3 mls/hr TITRATE PRN IV for blood glucose control; Start 06/21/17 at 16:00; Stop 06/22/17 at 09:42 ; Status DC Dextrose (D50w (Vial) Inj) 50 ml UNSCH PRN IV PUSH HYPOGLYCEMIA-SEE COMMENTS; Start 06/21/17 at 16:00; Stop 06/22/17 at 09:57; Status DC Sodium Bicarbonate (Sodium Bicarbonate 8.4% Inj) 50 meq UNSCH PRN IV PUSH SEE LABEL COMMENTS; Start 06/21/17 at 16:00; Stop 06/22/17 at 09:43; Status DC Sodium Bicarbonate (Sodium Bicarbonate 8.4% Inj) 100 meq UNSCH PRN IV PUSH SEE LABEL COMMENTS; Start 06/21/17 at 16:00; Stop 06/22/17 at 09:43; Status DC Albuterol/ Ipratropium (Duoneb Neb) 1 ampule Q6HR NEB NEB Last administered on 06/22/17 08:35; Start 06/21/17 at 16:00; Stop 06/22/17 at 09:56; Status DC Albuterol/ Ipratropium (Duoneb Neb) 1 ampule Q2HR NEB PRN NEB WHEEZING; Start 06/21/17 at 16:00 Racepinephrine (Racepinephrine 2.25% Neb) 0.5 ml UNSCH X1 PRN NEB STRIDOR; Start 06/21/17 at 16:00; Stop 06/22/17 at 09:43; Status DC Dexmedetomidine HCl 50 ml @ 6.285 mls/ hr TITRATE PRN IV Desired RASS; Start 06/21/17 at 17:30; Stop 06/22/17 at 09:42; Status DC Epinephrine HCl 2 mg/Dextrose 250 ml @ 22.5 mls/hr TITRATE PRN IV Blood Pressure Management Last administered on 06/21/17 16:30; Start 06/21/17 at 17 :45; Stop 06/22/17 at 09:42; Status DC Furosemide (Lasix Inj) 40 mg BID@09,18 IV PUSH Last administered on 06/23/17 08:55; Start 06/22/17 at 09:00 Albuterol/ Ipratropium (Duoneb Neb) 1 ampule Q6HR WHILE AWAKE NEB NEB Last administered on 06/23/17 12:33; Start 06/22/17 at 14:00; Stop 06/23/17 at 13 :17; Status DC Metoclopramide HCl (Reglan Inj) 10 mg Q6HR IV PUSH Last administered on 05:21; Start 06/22/17 at 12:00; Stop 06/23/17 at 06:01; Status DC Docusate Sodium (Colace) 100 mg BID PO Last administered on 06/23/17 08:55; Start 06/22/17 at 21:00 Multivitamins/ Minerals Therapeutic (Theragran M Tab) 1 tab DAILY PO Last administered on 06/23/17 08:55; Start 06/23/17 at 09:00 Magnesium Hydroxide (Milk Of Magnesia Liq) 30 ml DAILY PO Last administered on 06/23/17 08:54; Start 06/22/17 at 10:00 Bisacodyl (Dulcolax Supp) 10 mg UNSCH PRN RECTAL SEE LABEL COMMENTS; Start at 09:45 Polyethylene Glycol (Miralax) 17 gm DAILY PO Last administered on 06/23/17 08 :55; Start 06/23/17 at 09:00 Sennosides (Senokot) 8.6 mg HS PO Last administered on 06/22/17 20:39; Start 06/22/17 at 21:00 Sodium Biphosphate/ Sodium Phosphate (Fleets Enema (Adult)) 118 ml UNSCH PRN RECTAL SEE LABEL COMMENTS; Start 06/22/17 at 09:45 Insulin Aspart (NovoLOG SUPPLEMENTAL SCALE) 1 02,06,10,14,18,22 SQ Last administered on 06/22/17 18:00; Start 06/22/17 at 10:00; Stop 06/23/17 at 06 :01; Status DC Dextrose (D50w (Vial) Inj) 50 ml UNSCH PRN IV PUSH HYPOGLYCEMIA-SEE COMMENTS; Start 06/22/17 at 09:45 Glucagon (Glucagon Inj) 1 mg UNSCH PRN OTHER HYPOGLYCEMIA-SEE COMMENTS; Start 06/22/17 at 09:45 Lactulose (Lactulose Liq) 30 ml DAILY PO Last administered on 06/23/17 08:54 ; Start 06/22/17 at 09:45 Carvedilol (Coreg) 3.125 mg Q12HR PO Last administered on 06/23/17 08:55; Start 06/22/17 at 09:45 Insulin Aspart (NovoLOG SUPPLEMENTAL SCALE) 1 ACHS SLIDING SCALE SQ Last administered on 06/23/17 12:00; Start 06/23/17 at 08:00 Metoprolol Tartrate (Lopressor) 12.5 mg Q12HR PO ; Start 06/22/17 at 16:00; Stop 06/22/17 at 16:00; Status DC Aspirin (Ecotrin Ec) 81 mg DAILY PO ; Start 06/22/17 at 16:00; Stop 06/22/17 at 16:06; Status DC Bisacodyl (Dulcolax Supp) 10 mg ONCE ONCE RECTAL ; Start 06/23/17 at 10:30; Stop 06/23/17 at 10:52; Status DC Sodium Biphosphate/ Sodium Phosphate (Fleets Enema (Adult)) 133 ml ONCE ONCE TN ; Start 06/23/17 at 11:00; Stop 06/23/17 at 11:01; Status DC Acetaminophen/ Hydrocodone Bitart ([place] 5-325 Mg) 2 tab Q4H PRN PO PAIN SCALE 1 TO 5 Last administered on 06/23/17 12:14; Start 06/23/17 at 11:30 A/P Problem List: (1) Multi-vessel coronary artery stenosis ICD Code: I25.10 - Atherosclerotic heart disease of [place] coronary artery without angina pectoris (2) Non-ST elevation MD (NSTEMI) ICD Code: I21.4 - Non-ST elevation (NSTEMI) myocardial infarction Status: Acute (3) Ischemic cardiomyopathy ICD Code: I25.5 - Ischemic cardiomyopathy Status: Chronic Assessment and Plan 81-year-old man with Multivessel coronary artery disease Status post left heart catheterization Status post CABG x 3 06/21/17 Management per cardio thoracic surgery Continue with Coreg, Lipitor ASPIRIN ACEI ON HOLD DUE TO RENAL FUNCTIONS STILL ON LASIX Non-ST elevation MD Status post left heart catheterization Cardiology following and continue with above medical regiment Ischemic cardiomyopathy EF 30-35% by both echo and cath. No evidence for acute CHF. Continue with beta cristine, Lasix 40 IV twice a day Status post laparoscopic bilateral inguinal hernia 06/17/17 Continue current postop care Juan Daniel Perez DO Jun 23, 2017 14:24
[2017-06-23] MEDS: SENNOSIDES 8.6 MG TAB PO SCH (20:43)
[2017-06-23] MEDS: ATORVASTATIN 40 MG TAB PO SCH (20:44)
[2017-06-24] VITALS (30 sets, daily range): BP systolic 108–139; BP diastolic 52–86; PULSE 71–87; RESP 16–20; TEMP 97.4–98.4; O2SAT 92–94
[2017-06-24 05:03] LABS: RED BLOOD COUNT 3.58 MIL/MM3 (4.50-5.90); WHITE BLOOD COUNT 12.2 TH/MM3 (4.0-11.0)
[2017-06-24 05:04] LABS: BASOPHIL % 0.3 % (0.0-2.0); EOSINOPHIL % 0.3 % (0.0-4.0); HEMATOCRIT 33.8 % (39.0-51.0); HEMO FLAGS DIFF FINAL; LYMPH % 14.5 % (9.0-44.0); LYMPHOCYTE # 1.8 TH/MM3 (1.0-4.8); MEAN CELL VOLUME 94.6 FL (80.0-100.0); MEAN CORPUSCULAR HEMOGLOBIN 32.2 PG (27.0-34.0); MEAN CORPUSCULAR HGB CONC 34.1 % (32.0-36.0); NEUT % 73.9 % (16.0-70.0); PLATELET COUNT 114 TH/MM3 (150-450)
--- NOTE | 2017-06-24 05:07 | RADRPT ---
EXAM DATE/TIME: 06/24/2017 03:50 [facility] COMPARISON: No previous studies available for comparison. INDICATIONS : Chest tube removal. MEDICAL HISTORY : Renal calculi. SURGICAL HISTORY : Bilateral inguinal hernia repair 06/16/17. ENCOUNTER: Subsequent ACUITY: 4 - 6 days PAIN SCORE: Non-responsive. LOCATION: Bilateral chest FINDINGS: A single view of the chest demonstrates the interval removal of the left-sided chest tube. There some residual pleural reaction. I don't see any evidence of a pneumothorax. There is a questionable left first rib fracture. There numerous intact sternal wires. Right IJ central line in good position. Righ t lung is relatively clear. Arthritic change right shoulder. CONCLUSION: A left chest tube has been removed with some residual pleural reaction. Questionable fracture left first rib. No pneumothorax is seen. Miah Plata MD on June 24, 2017 at 5:04 Board Certified Radiologist. This report was verified electronically.
[2017-06-24 05:26] LABS: ALT (GPT) 22 U/L (12-78); ANION GAP 8 MEQ/L (5-15); AST (GOT) 23 U/L (15-37); BICARBONATE 28.5 MEQ/L (21.0-32.0); BLOOD UREA NITROGEN 29 MG/DL (7-18); CHLORIDE 105 MEQ/L (98-107); GLOMERULAR FILTRATION RATE 88 ML/MIN (>89); MAGNESIUM 2.3 MG/DL (1.5-2.5); POTASSIUM 3.6 MEQ/L (3.5-5.1); SODIUM (NA) 141 MEQ/L (136-145)
[2017-06-24 05:35] LABS: ALKALINE PHOSPHATASE 43 U/L (45-117); FREE T4 1.14 NG/DL (0.76-1.46); TOTAL BILIRUBIN ADULT 1.2 MG/DL (0.2-1.0)
[2017-06-24] MEDS: PANTOPRAZOLE SOD 40 MG DELAYED RELEASE TAB PO SCH (06:43)
[2017-06-24] MEDS: INSULIN ASPART SUPPLEMENTAL SCALE SQ SCH ×4 (08:00→21:00)
[2017-06-24] MEDS: MAGNESIUM HYDROXIDE SUSP 30 ML CUP PO SCH (08:53)
[2017-06-24] MEDS: SODIUM CHLORIDE 0.9% FLUSH 10 ML FLUSH IV FLUSH SCH ×2 (08:53→21:00)
[2017-06-24] MEDS: ACETAMINOPHEN/HYDROcodone 325 MG/5 MG TAB PO PRN ×3 (08:54→21:33)
[2017-06-24] MEDS: POLYETHYLENE GLYCOL 17 GM PKG PO SCH (08:54)
[2017-06-24] MEDS: DOCUSATE SODIUM 100 MG CAP PO SCH ×2 (08:54→21:32)
[2017-06-24] MEDS: ASPIRIN EC 81 MG TABEC PO SCH (08:55)
[2017-06-24] MEDS: CARVEDILOL 3.125 MG TAB PO SCH ×2 (08:55→21:32)
[2017-06-24] MEDS: FUROSEMIDE 40 MG/4 ML VIAL IV PUSH SCH ×2 (08:55→17:50)
[2017-06-24] MEDS: LACTULOSE SYRUP 20 GM/30 ML CUP PO SCH (08:55)
[2017-06-24] MEDS: MULTIVITAMINS/MINERALS THERAPEUTIC TAB PO SCH (08:55)
--- NOTE | 2017-06-24 10:19 | HHI.PR ---
Subjective Remarks Follow-up severe three-vessel CAD 06/19/17-patient seen and examined, denies any chest pain or shortness of breath. 06/20/17-patient seen and examined, denies any shortness of breath no acute event overnight. Stable 06/21/17-patient seen and examined, currently nothing by mouth. No acute event overnight. Positive for bowel movement 06/22/17-patient seen and examined, he status post CABG 3. Stable this morning and currently afebrile. 06/23 PATIENT SEEN AND EXAMINED- DIET ADVANCED- NO NEW COMPLAINTS DW RN AND PT AND 06/24 NOT EATING MUCH, LIVES WITH AT HOME. MAY NEED REHAB VS C DW RN AND PT NOT CLEARED BY SURGERY FOR DC YET AM LABS DOES NOT FEEL READY TO GO HOME YET Objective Vitals Vital Signs Date Time Temp Pulse Resp B/P (MAP) Pulse Ox O2 Delivery O2 Flow Rate FiO2 06/24/17 08:16 98.2 84 19 139/62 (87) 94 06/24/17 06:00 85 06/24/17 05:00 87 06/24/17 04:00 78 06/24/17 03:47 93 Room Air 06/24/17 03:47 98.4 85 18 125/58 (80) 93 06/24/17 03:00 81 06/24/17 02:21 77 06/24/17 01:10 78 06/24/17 00:55 98.3 72 18 118/56 (76) 93 06/24/17 00:55 93 Room Air 06/24/17 00:54 72 06/23/17 23:00 78 06/23/17 22:00 80 06/23/17 22:00 96 06/23/17 22:00 18 06/23/17 21:00 96 06/23/17 21:00 98.4 87 18 121/65 (83) 93 06/23/17 21:00 93 Room Air 06/23/17 21:00 87 06/23/17 20:00 96 06/23/17 19:00 94 06/23/17 18:00 96 06/23/17 17:00 94 06/23/17 16:00 93 06/23/17 15:42 94 Room Air 06/23/17 15:42 97.8 91 16 134/63 (86) 94 06/23/17 15:00 90 06/23/17 14:00 102 06/23/17 13:00 94 06/23/17 12:00 90 06/23/17 11:15 98.2 96 16 134/61 (85) 93 06/23/17 11:15 93 Nasal Cannula 2.00 06/23/17 11:00 99 I/O 06/23/17 06/23/17 06/23/17 06/24/17 06/24/17 06/24/17 07:00 15:00 23:00 07:00 15:00 23:00 Intake Total 720 ml 840 ml 120 ml Output Total 1090 ml 400 ml Balance -370 ml 840 ml -280 ml Intake Oral 720 ml 840 ml 120 ml Output Urine Total 1000 ml 400 ml Chest Tube Drainage Total 90 ml # Voids 3 # Bowel Movements 1 Result Diagram: 06/24/17 0433 06/24/17 0433 Other Results Laboratory Tests Test 06/22/17 04:26 06/22/17 21:10 06/23/17 05:00 06/24/17 04:33 White Blood Count 10.1 TH/MM3 15.7 TH/MM3 12.2 TH/MM3 Red Blood Count 2.98 MIL/MM3 3.86 MIL/MM3 3.58 MIL/MM3 Hemoglobin 8.9 GM/DL 12.2 GM/DL 11.5 GM/DL Hematocrit 26.1 % 36.9 % 33.8 % Mean Corpuscular Volume 87.5 FL 95.6 FL 94.6 FL Mean Corpuscular Hemoglobin 29.9 PG 31.7 PG 32.2 PG Mean Corpuscular Hemoglobin Concent 34.2 % 33.2 % 34.1 % Red Cell Distribution Width 14.0 % 13.1 % 13.0 % Platelet Count 225 TH/MM3 117 TH/MM3 114 TH/MM3 Mean Platelet Volume 8.2 FL 8.6 FL 8.5 FL Blood Urea Nitrogen 12 MG/DL 24 MG/DL 26 MG/DL 29 MG/DL Creatinine 0.49 MG/DL 1.10 MG/DL 0.88 MG/DL 0.84 MG/DL Random Glucose 110 MG/DL 131 MG/DL 125 MG/DL 110 MG/DL Calcium Level 7.6 MG/DL 8.0 MG/DL 8.1 MG/DL 7.8 MG/DL Magnesium Level 1.8 MG/DL 2.4 MG/DL 2.3 MG/DL Sodium Level 135 MEQ/L 139 MEQ/L 142 MEQ/L 141 MEQ/L Potassium Level 5.9 MEQ/L 3.9 MEQ/L 4.2 MEQ/L 3.6 MEQ/L Chloride Level 104 MEQ/L 106 MEQ/L 107 MEQ/L 105 MEQ/L Carbon Dioxide Level 24.1 MEQ/L 25.4 MEQ/L 26.8 MEQ/L 28.5 MEQ/L Anion Gap 7 MEQ/L 8 MEQ/L 8 MEQ/L 8 MEQ/L Estimat Glomerular Filtration Rate 163 ML/MIN 64 ML/MIN 83 ML/MIN 88 ML/MIN Neutrophils (%) (Auto) 77.2 % 73.9 % Lymphocytes (%) (Auto) 10.2 % 14.5 % Monocytes (%) (Auto) 12.4 % 11.0 % Eosinophils (%) (Auto) 0.1 % 0.3 % Basophils (%) (Auto) 0.1 % 0.3 % Neutrophils # (Auto) 12.1 TH/MM3 9.0 TH/MM3 Lymphocytes # (Auto) 1.6 TH/MM3 1.8 TH/MM3 Monocytes # (Auto) 2.0 TH/MM3 1.4 TH/MM3 Eosinophils # (Auto) 0.0 TH/MM3 0.0 TH/MM3 Basophils # (Auto) 0.0 TH/MM3 0.0 TH/MM3 CBC Comment DIFF FINAL DIFF FINAL Differential Comment Total Protein 5.7 GM/DL Albumin 2.6 GM/DL Phosphorus Level 2.2 MG/DL Alkaline Phosphatase 43 U/L Aspartate Amino Transf (AST/SGOT) 23 U/L Alanine Aminotransferase (ALT/SGPT) 22 U/L Total Bilirubin 1.2 MG/DL Free Thyroxine 1.14 NG/DL Thyroid Stimulating Hormone 3rd Gen 1.680 uIU/ML Imaging Last Impressions Chest X-Ray 06/24/17 0600 Signed Impressions: Service Date/Time: June 03:50 - CONCLUSION: A left chest tube has been removed with some residual pleural reaction. Questionable fracture left first rib. No pneumothorax is seen. Miah Plata MD Lower Extremity Ultrasound 06/17/17 0000 Signed Impressions: Service Date/Time: June 19:15 - CONCLUSION: Patent greater saphenous veins bilaterally with measurements above. Michael Bradford Jr., MD Carotid Artery Ultrasound 06/17/17 0000 Signed Impressions: Service Date/Time: June 19:36 - CONCLUSION: 1. Calcified plaque involving the carotid arteries bilaterally without hemodynamically significant stenosis involving either carotid. 2. Antegrade flow involving both vertebral arteries. Michael Bradford Jr., MD Objective Remarks GENERAL: Awake alert oriented talkative and cooperative --oriented 3 SKIN: Warm and dry. Chest is dressed HEAD: Atraumatic. Normocephalic. EYES: Pupils equal and round. No scleral icterus. No injection or drainage. Extraocular muscles intact ENT: No nasal bleeding or discharge. Mucous membranes pink and moist. Tongue is midline NECK: Trachea midline. No JVD. Supple CARDIOVASCULAR: Regular rate and rhythm. S1-S2 no S3 or S4 RESPIRATORY: No accessory muscle use. Clear to auscultation. Breath sounds equal bilaterally. GASTROINTESTINAL: Abdomen soft, non-tender, nondistended. Hepatic and splenic margins not palpable. MUSCULOSKELETAL: Extremities without clubbing, cyanosis, or edema. No obvious deformities. NEUROLOGICAL: Awake and alert. No obvious cranial nerve deficits. Motor grossly within normal limits. 4 out of 5 muscle strength in the arms and legs. Normal speech. PSYCHIATRIC: Appropriate mood and affect; insight and judgment normal. Procedures Status post CABG x 3 06/21/17 Status post laparoscopic bilateral inguinal hernia 06/17/17 Medications and IVs Current Medications Ondansetron HCl (Zofran Inj) 4 mg Q6H PRN IV PUSH NAUSEA; Start 06/16/17 at 18: 00; Stop 06/21/17 at 16:02; Status DC Lorazepam (Ativan Inj) 1 mg Q6H PRN IV ANXIETY Last administered on 06/18/17t 20:28; Start 06/16/17 at 18:00; Stop 06/20/17 at 11:04; Status DC Acetaminophen/ Hydrocodone Bitart (Atkins 5-325 Mg) 1 tab Q4H PRN PO PAIN 1-10 ; Start 06/16/17 at 18:00; Stop 06/21/17 at 16:15; Status DC Morphine Sulfate (Morphine Inj) 3 mg Q2H PRN IV SEVERE PAIN 1-10; Start at 18:00; Stop 06/20/17 at 11:04; Status DC Sodium Chloride 1,000 ml @ 0 mls/hr Q0M IV ; Start 06/16/17 at 18:00; Stop at 09:42; Status DC Influenza Virus Vaccine (Flu (Quadrivalent) Vaccine Inj) 0.5 ml ONCE ONCE IM Last administered on 06/17/17 09:09; Start 06/17/17 at 10:00; Stop 06/17/17 at 10:01; Status DC Pneumococcal Polyvalent Vaccine (Pneumovax-23 Inj) 25 mcg ONCE ONCE IM Last administered on 06/17/17 09:10; Start 06/17/17 at 10:00; Stop 06/17/17 at 10:01 ; Status DC Carvedilol (Coreg) 3.125 mg Q12HR PO Last administered on 06/21/17 09:09; Start 06/16/17 at 21:00; Stop 06/21/17 at 15:57; Status DC Enalapril Maleate (Vasotec) 2.5 mg DAILY PO Last administered on 06/17/17 09: 00; Start 06/17/17 at 09:00; Stop 06/20/17 at 11:04; Status DC Aspirin (Ecotrin Ec) 81 mg DAILY PO ; Start 06/16/17 at 20:30; Stop 06/18/17 at 07:41; Status DC Sodium Chloride 1,000 ml @ 100 mls/hr Q10H IV Last administered on 06/21/17 16:53; Start 06/17/17 at 08:08; Stop 06/22/17 at 08:07; Status DC Aspirin (Aspirin) 325 mg EXTENSION SERVICE AGENT PO Last administered on 06/17/17 09:09; Start 06/17/17 at 08:15; Stop 06/18/17 at 07:41; Status DC Diphenhydramine HCl (Benadryl) 50 mg EXTENSION SERVICE AGENT PO ; Start 06/17/17 at 08:15; Stop 06/21/17 at 08:14; Status DC Diazepam (Valium) 10 mg EXTENSION SERVICE AGENT PO ; Start 06/17/17 at 08:15; Stop 06/21/17 at 08:14; Status DC Midazolam HCl (Versed Inj) 2 mg STK-MED ONCE .ROUTE Last administered on 14:03; Start 06/17/17 at 13:36; Stop 06/17/17 at 13:37; Status DC Verapamil HCl (Isoptin Inj) 5 mg STK-MED ONCE .ROUTE Last administered on 14:06; Start 06/17/17 at 13:36; Stop 06/17/17 at 13:37; Status DC Heparin Sodium (Porcine) (Heparin Inj) 10,000 units STK-MED ONCE .ROUTE Last administered on 06/17/17 14:06; Start 06/17/17 at 13:36; Stop 06/17/17 at 13:37 ; Status DC Nitroglycerin 5 ml @ As Directed STK-MED ONCE .ROUTE Last administered on 14:06; Start 06/17/17 at 13:36; Stop 06/17/17 at 13:37; Status DC Heparin Sodium/ Sodium Chloride 1,000 ml @ As Directed STK-MED ONCE .ROUTE Last administered on 06/17/17 13:37; Start 06/17/17 at 13:37; Stop 06/17/17 at 13:38; Status DC Fentanyl Citrate (fentaNYL INJ) 100 mcg STK-MED ONCE .ROUTE Last administered on 06/17/17 14:04; Start 06/17/17 at 14:02; Stop 06/17/17 at 14:03; Status DC Heparin Sodium/ Sodium Chloride 1,000 ml @ As Directed STK-MED ONCE .ROUTE Last administered on 06/17/17 14:48; Start 06/17/17 at 14:48; Stop 06/17/17 at 14:49; Status DC Aspirin (Ecotrin Ec) 81 mg DAILY PO Last administered on 06/24/17 08:55; Start 06/18/17 at 09:00 Iohexol (OMNIPAQUE 350 INJ (Watcher [employer])) 50 ml STK-MED ONCE OTHER ; Start at 17:39; Stop 06/18/17 at 10:27; Status DC Iohexol (OMNIPAQUE 350 INJ (Watcher [employer])) 100 ml STK-MED ONCE OTHER ; Start at 17:39; Stop 06/18/17 at 10:27; Status DC Magnesium Hydroxide (Milk Of Magnesia Liq) 30 ml DAILY PRN PO constipation Last administered on 06/20/17 11:22; Start 06/18/17 at 14:45 Heparin Sodium/ Dextrose 250 ml @ 10 mls/hr TITRATE PRN IV Coagulation Management Last administered on 06/20/17 22:28; Start 06/18/17 at 16:45; Stop 06/21/17 at 15:57; Status DC Sodium Chloride (NS Flush) 2 ml BID IV FLUSH Last administered on 06/19/17 21 :19; Start 06/18/17 at 21:00; Stop 06/21/17 at 16:11; Status DC Sodium Chloride (NS Flush) 2 ml UNSCH PRN IV FLUSH FLUSH AFTER USING IV ACCESS ; Start 06/18/17 at 16:45; Stop 06/21/17 at 16:11; Status DC Papaverine HCl 60 mg/Nitroglycerin 100 mcg/Diltiazem HCl 100 mg/Sodium Chloride 100 ml @ 0 mls/hr EXT[employer]ION SERVICE AGENT IRRIGATION ; Start 06/18/17 at 16:45; Stop at 09:42; Status DC Cefazolin Sodium 500 mg/Sodium Chloride 505 ml @ 0 mls/hr EX[employer] SERVICE [employer]ENT IRRIGATION ; Start 06/18/17 at 16:45; Stop 06/22/17 at 09:42; Status DC Cefazolin Sodium/ Dextrose 50 ml @ 150 mls/hr EXT[employer]ION SERVICE AGENT IV Last administered on 06/21/17 12:10; Start 06/18/17 at 16:45; Stop 06/21/17 at 16:05; Status DC Metoprolol Tartrate (Lopressor) 12.5 mg EXTENSION SERVICE AGENT PO ; Start 06/18/17 at 16:45; Stop 06/22/17 at 09:43; Status DC Chlorhexidine Gluconate (Hibiclens 4% Top Soln) 1 applic EXTENSION SERVICE AGENT TOPICAL Last administered on 06/20/17 21:31; Start 06/18/17 at 16:45; Stop 06/22/17 at 09 :43; Status DC Insulin Human Regular 100 units/ Sodium Chloride 100 ml @ 3 mls/hr TITRATE PRN IV for blood glucose control Last administered on 06/21/17 16:50; Start 06/18 at 16:45; Stop 06/21/17 at 16:06; Status DC Dextrose (D50w (Vial) Inj) 50 ml UNSCH PRN IV PUSH HYPOGLYCEMIA-SEE COMMENTS; Start 06/18/17 at 16:45; Stop 06/21/17 at 16:06; Status DC Atorvastatin Calcium (Lipitor) 40 mg HS PO Last administered on 06/23/17t 20: 44; Start 06/18/17 at 21:00 Sodium Biphosphate/ Sodium Phosphate (Fleets Enema (Adult)) 133 ml NOW ONCE RECTAL Last administered on 06/20/17 17:30; Start 06/20/17 at 18:00; Stop 06/20/17 at 18:01; Status DC Heparin Sodium (Porcine) (Heparin Inj) 10,000 units STK-MED ONCE .ROUTE ; Start 06/21/17 at 11:09; Stop 06/22/17 at 09:43; Status DC Vancomycin HCl (Vancomycin Inj) 3,000 mg STK-MED ONCE .ROUTE ; Start 06/21/17 at 11:09; Stop 06/22/17 at 09:43; Status DC Multi-Ingred Electrol/Mineral Irrig 2,000 ml @ As Directed STK-MED ONCE .ROUTE ; Start 06/21/17 at 11:10; Stop 06/22/17 at 09:42; Status DC Potassium Chloride (KCl Inj) 2 meq STK-MED ONCE .ROUTE ; Start 06/21/17 at 11: 10; Stop 06/22/17 at 09:43; Status DC Potassium Chloride (KCl Inj) 2 meq STK-MED ONCE .ROUTE ; Start 06/21/17 at 11: 11; Stop 06/22/17 at 09:43; Status DC Potassium Chloride (KCl Inj) 2 meq STK-MED ONCE .ROUTE ; Start 06/21/17 at 11: 11; Stop 06/22/17 at 09:43; Status DC Sodium Bicarbonate 50 ml @ As Directed STK-MED ONCE .ROUTE ; Start 06/21/17 at 11:11; Stop 06/22/17 at 09:42; Status DC Heparin Sodium (Porcine) (Heparin Inj) 10,000 units STK-MED ONCE .ROUTE ; Start 06/21/17 at 11:12; Stop 06/22/17 at 09:43; Status DC Cefazolin Sodium/ Dextrose 50 ml @ As Directed STK-MED ONCE .ROUTE ; Start at 11:24; Stop 06/22/17 at 09:42; Status DC Methylprednisolone Sodium Succinate (SoluMEDROL INJ) 125 mg STK-MED ONCE .ROUTE Last administered on 06/21/17 12:19; Start 06/21/17 at 12:17; Stop at 09:43; Status DC Sodium Chloride 50 ml @ As Directed STK-MED ONCE .ROUTE ; Start 06/21/17 at 14: 12; Stop 06/22/17 at 09:42; Status DC Dexmedetomidine HCl (Precedex Inj) 200 mcg STK-MED ONCE .ROUTE ; Start at 14:13; Stop 06/21/17 at 14:14; Status DC Cefazolin Sodium (Ancef Inj) 1,000 mg STK-MED ONCE .ROUTE Last administered on 06/21/17 16:00; Start 06/21/17 at 15:51; Stop 06/22/17 at 09:43; Status DC Sodium Chloride (NS Flush) 2 ml BID IV FLUSH Last administered on 06/24/17 08 :53; Start 06/21/17 at 21:00 Sodium Chloride (NS Flush) 2 ml UNSCH PRN IV FLUSH FLUSH AFTER USING IV ACCESS ; Start 06/21/17 at 16:00 Dexmedetomidine HCl 200 mcg/ Sodium Chloride 52 ml @ 4.35 mls/hr TITRATE PRN IV SEDATION Last administered on 06/21/17 16:30; Start 06/21/17 at 16:00; Stop 06/21/17 at 17:30; Status DC Clevidipine 50 ml @ 2 mls/hr TITRATE PRN IV Maintain BP < 140/90 mmHg Last administered on 06/21/17 23:35; Start 06/21/17 at 16:00; Stop 06/22/17 at 09 :42; Status DC Albumin Human 250 ml @ 250 mls/hr UNSCH PRN IV SEE LABEL COMMENTS Last administered on 06/22/17 02:59; Start 06/21/17 at 16:00; Stop 06/22/17 at 09 :42; Status DC Lactated Ringer's 500 ml @ 500 mls/hr Q1H PRN IV SEE LABEL COMMENTS; Start at 15:47; Stop 06/22/17 at 09:42; Status DC Miscellaneous Information (Post-op Orders (for Pharmacy)) STAT ONCE OTHER ; Start 06/21/17 at 16:00; Stop 06/21/17 at 16:18; Status DC Cefazolin Sodium 1000 mg/Sodium Chloride 100 ml @ 200 mls/hr Q8H IV Last administered on 06/23/17 04:00; Start 06/21/17 at 20:00; Stop 06/23/17 at 04 :29; Status DC Pantoprazole Sodium (Protonix) 40 mg DAILY@06 PO Last administered on 06:43; Start 06/22/17 at 06:00 Acetaminophen (Tylenol) 650 mg Q4H PRN PO TEMPERATURE > 101 F; Start 06/21/17 at 16:00 Acetaminophen (Tylenol Supp) 650 mg Q4H PRN RECTAL TEMPERATURE > 101 F; Start 06/21/17 at 16:00; Stop 06/22/17 at 09:42; Status DC Acetaminophen 100 ml @ 400 mls/hr Q6H IV Last administered on 06/22/17 10:54 ; Start 06/21/17 at 17:00; Stop 06/22/17 at 11:14; Status DC Acetaminophen/ Hydrocodone Bitart (Atkins 5-325 Mg) 1 tab Q3H PRN PO PAIN SCALE 1 TO 5 Last administered on 06/23/17 08:55; Start 06/21/17 at 16:00; Stop 06/23/17 at 11:18; Status DC Fentanyl Citrate (fentaNYL INJ) 25 mcg Q1H PRN IV PUSH BREAKTHROUGH PAIN Last administered on 06/22/17 08:56; Start 06/21/17 at 16:00; Stop 06/22/17 at 15 :58; Status DC Ondansetron HCl (Zofran Inj) 4 mg Q6H PRN IV PUSH NAUSEA OR VOMITING; Start at 16:00 Hydralazine HCl (Apresoline Inj) 10 mg Q4H PRN IV PUSH SEE LABEL COMMENTS; Start 06/21/17 at 16:00 Metoprolol Tartrate (Lopressor Inj) 2.5 mg Q1H PRN IV PUSH SEE LABEL COMMENTS; Start 06/21/17 at 16:00; Stop 06/22/17 at 09:43; Status DC Potassium Chloride 100 ml @ 50 mls/hr UNSCH PRN IV SEE LABEL COMMENTS Last administered on 06/21/17 16:56; Start 06/21/17 at 16:00; Stop 06/21/17 at 16 :56; Status DC Potassium Chloride 100 ml @ 50 mls/hr UNSCH PRN IV SEE LABEL COMMENTS; Start 06/21/17 at 16:00; Stop 06/22/17 at 09:42; Status DC Potassium Chloride 100 ml @ 50 mls/hr UNSCH PRN IV SEE LABEL COMMENTS; Start 06/21/17 at 16:00; Stop 06/22/17 at 09:42; Status DC Potassium Chloride (KCl) 20 meq UNSCH PRN PO SEE LABEL COMMENTS; Start at 16:00; Stop 06/22/17 at 09:43; Status DC Potassium Chloride (KCl) 40 meq UNSCH PRN PO SEE LABEL COMMENTS; Start at 16:00; Stop 06/22/17 at 09:43; Status DC Magnesium Sulfate 2 gm/Sodium Chloride 104 ml @ 100 mls/hr UNSCH PRN IV SEE LABEL COMMENTS; Start 06/21/17 at 16:00; Stop 06/22/17 at 09:42; Status DC Magnesium Sulfate 2 gm/Sodium Chloride 104 ml @ 50 mls/hr UNSCH PRN IV SEE LABEL COMMENTS Last administered on 06/22/17 06:25; Start 06/21/17 at 16:00; Stop 06/22/17 at 06:25; Status DC Calcium Chloride 1 gm/Sodium Chloride 110 ml @ 100 mls/hr UNSCH PRN IV SEE LABEL COMMENTS Last administered on 06/21/17 21:11; Start 06/21/17 at 17:00; Stop 06/21/17 at 21:12; Status DC Calcium Chloride (Calcium Chloride Inj) 0.5 gm UNSCH PRN IV PUSH SEE LABEL COMMENTS; Start 06/21/17 at 16:00; Stop 06/22/17 at 09:43; Status DC Insulin Human Regular 100 units/ Sodium Chloride 100 ml @ 3 mls/hr TITRATE PRN IV for blood glucose control; Start 06/21/17 at 16:00; Stop 06/22/17 at 09:42 ; Status DC Dextrose (D50w (Vial) Inj) 50 ml UNSCH PRN IV PUSH HYPOGLYCEMIA-SEE COMMENTS; Start 06/21/17 at 16:00; Stop 06/22/17 at 09:57; Status DC Sodium Bicarbonate (Sodium Bicarbonate 8.4% Inj) 50 meq UNSCH PRN IV PUSH SEE LABEL COMMENTS; Start 06/21/17 at 16:00; Stop 06/22/17 at 09:43; Status DC Sodium Bicarbonate (Sodium Bicarbonate 8.4% Inj) 100 meq UNSCH PRN IV PUSH SEE LABEL COMMENTS; Start 06/21/17 at 16:00; Stop 06/22/17 at 09:43; Status DC Albuterol/ Ipratropium (Duoneb Neb) 1 ampule Q6HR NEB NEB Last administered on 06/22/17 08:35; Start 06/21/17 at 16:00; Stop 06/22/17 at 09:56; Status DC Albuterol/ Ipratropium (Duoneb Neb) 1 ampule Q2HR NEB PRN NEB WHEEZING; Start 06/21/17 at 16:00 Racepinephrine (Racepinephrine 2.25% Neb) 0.5 ml UNSCH X1 PRN NEB STRIDOR; Start 06/21/17 at 16:00; Stop 06/22/17 at 09:43; Status DC Dexmedetomidine HCl 50 ml @ 6.285 mls/ hr TITRATE PRN IV Desired RASS; Start 06/21/17 at 17:30; Stop 06/22/17 at 09:42; Status DC Epinephrine HCl 2 mg/Dextrose 250 ml @ 22.5 mls/hr TITRATE PRN IV Blood Pressure Management Last administered on 06/21/17 16:30; Start 06/21/17 at 17 :45; Stop 06/22/17 at 09:42; Status DC Furosemide (Lasix Inj) 40 mg BID@09,18 IV PUSH Last administered on 06/24/17 08:55; Start 06/22/17 at 09:00 Albuterol/ Ipratropium (Duoneb Neb) 1 ampule Q6HR WHILE AWAKE NEB NEB Last administered on 06/23/17 12:33; Start 06/22/17 at 14:00; Stop 06/23/17 at 13 :17; Status DC Metoclopramide HCl (Reglan Inj) 10 mg Q6HR IV PUSH Last administered on 05:21; Start 06/22/17 at 12:00; Stop 06/23/17 at 06:01; Status DC Docusate Sodium (Colace) 100 mg BID PO Last administered on 06/24/17 08:54; Start 06/22/17 at 21:00 Multivitamins/ Minerals Therapeutic (Theragran M Tab) 1 tab DAILY PO Last administered on 06/24/17 08:55; Start 06/23/17 at 09:00 Magnesium Hydroxide (Milk Of Magnesia Liq) 30 ml DAILY PO Last administered on 06/24/17 08:53; Start 06/22/17 at 10:00 Bisacodyl (Dulcolax Supp) 10 mg UNSCH PRN RECTAL SEE LABEL COMMENTS; Start at 09:45 Polyethylene Glycol (Miralax) 17 gm DAILY PO Last administered on 06/24/17 08 :54; Start 06/23/17 at 09:00 Sennosides (Senokot) 8.6 mg HS PO Last administered on 06/23/17 20:43; Start 06/22/17 at 21:00 Sodium Biphosphate/ Sodium Phosphate (Fleets Enema (Adult)) 118 ml UNSCH PRN RECTAL SEE LABEL COMMENTS; Start 06/22/17 at 09:45 Insulin Aspart (NovoLOG SUPPLEMENTAL SCALE) 1 02,06,10,14,18,22 SQ Last administered on 06/22/17 18:00; Start 06/22/17 at 10:00; Stop 06/23/17 at 06 :01; Status DC Dextrose (D50w (Vial) Inj) 50 ml UNSCH PRN IV PUSH HYPOGLYCEMIA-SEE COMMENTS; Start 06/22/17 at 09:45 Glucagon (Glucagon Inj) 1 mg UNSCH PRN OTHER HYPOGLYCEMIA-SEE COMMENTS; Start 06/22/17 at 09:45 Lactulose (Lactulose Liq) 30 ml DAILY PO Last administered on 06/23/17 08:54 ; Start 06/22/17 at 09:45 Carvedilol (Coreg) 3.125 mg Q12HR PO Last administered on 06/24/17 08:55; Start 06/22/17 at 09:45 Insulin Aspart (NovoLOG SUPPLEMENTAL SCALE) 1 ACHS SLIDING SCALE SQ Last administered on 06/23/17 12:00; Start 06/23/17 at 08:00 Metoprolol Tartrate (Lopressor) 12.5 mg Q12HR PO ; Start 06/22/17 at 16:00; Stop 06/22/17 at 16:00; Status DC Aspirin (Ecotrin Ec) 81 mg DAILY PO ; Start 06/22/17 at 16:00; Stop 06/22/17 at 16:06; Status DC Bisacodyl (Dulcolax Supp) 10 mg ONCE ONCE RECTAL ; Start 06/23/17 at 10:30; Stop 06/23/17 at 10:52; Status DC Sodium Biphosphate/ Sodium Phosphate (Fleets Enema (Adult)) 133 ml ONCE ONCE MT Last administered on 06/23/17t 11:00; Start 06/23/17 at 11:00; Stop 06/23 at 11:01; Status DC Acetaminophen/ Hydrocodone Bitart (Atkins 5-325 Mg) 2 tab Q4H PRN PO PAIN SCALE 1 TO 5 Last administered on 06/24/17t 08:54; Start 06/23/17 at 11:30 Fentanyl Citrate (fentaNYL INJ) 100 mcg STK-MED ONCE IV ; Start 06/21/17 at 12: 00; Stop 06/24/17 at 10:03; Status DC Midazolam HCl (Versed Inj) 10 mg STK-MED ONCE IV ; Start 06/21/17 at 12:00; Stop 06/24/17 at 10:03; Status DC Sodium Chloride 100 ml @ As Directed STK-MED ONCE IV ; Start 06/21/17 at 12:00 ; Stop 06/24/17 at 10:03; Status DC Sodium Chloride 250 ml @ As Directed STK-MED ONCE IV ; Start 06/21/17 at 12:00 ; Stop 06/24/17 at 10:03; Status DC Parenteral Electrolytes 1,000 ml @ As Directed STK-MED ONCE IV ; Start at 12:00; Stop 06/24/17 at 10:03; Status DC Magnesium Sulfate (Magnesium Sulfate Inj) 2 gm STK-MED ONCE IV ; Start at 12:00; Stop 06/24/17 at 10:13; Status DC Vecuronium Winger (Norcuron 10 Mg Inj) 20 mg STK-MED ONCE IV ; Start 06/21/17 at 12:00; Stop 06/24/17 at 10:13; Status DC Epinephrine HCl (Adrenalin (1:1000) Inj) 4 mg STK-MED ONCE IV ; Start 06/21/17 at 12:00; Stop 06/24/17 at 10:13; Status DC Heparin Sodium (Porcine) (Heparin Inj) 40,000 units STK-MED ONCE SQ ; Start at 12:00; Stop 06/24/17 at 10:13; Status DC Nitroglycerin/ Dextrose (Nitroglycerin-D5W Inj) 50 mg STK-MED ONCE IV ; Start 06/21/17 at 12:00; Stop 06/24/17 at 10:13; Status DC Phenylephrine HCl (Neosynephrine/ NS 1000 Mcg/10ml Syr) 3,000 mcg STK-MED ONCE IV ; Start 06/21/17 at 12:00; Stop 06/24/17 at 10:13; Status DC Ephedrine Sulfate (ePHEDrine/NS 25 MG/5 ML SYR) 25 mg STK-MED ONCE IV ; Start 06/21/17 at 12:00; Stop 06/24/17 at 10:13; Status DC Protamine Sulfate (Protamine Sulfate Inj) 250 mg STK-MED ONCE IV ; Start at 12:00; Stop 06/24/17 at 10:13; Status DC Tranexamic Acid (Cyklokapron Inj) 1,000 mg STK-MED ONCE IV ; Start 06/21/17 at 12:00; Stop 06/24/17 at 10:13; Status DC A/P Problem List: (1) Multi-vessel coronary artery stenosis ICD Code: I25.10 - Atherosclerotic heart disease of [place] coronary artery without angina pectoris (2) Non-ST elevation CT (NSTEMI) ICD Code: I21.4 - Non-ST elevation (NSTEMI) myocardial infarction Status: Acute (3) Ischemic cardiomyopathy ICD Code: I25.5 - Ischemic cardiomyopathy Status: Chronic Assessment and Plan 81-year-old man with Multivessel coronary artery disease Status post left heart catheterization Status post CABG x 3 06/21/17 Management per cardio thoracic surgery Continue with Coreg, Lipitor ASPIRIN ACEI ON HOLD DUE TO RENAL FUNCTIONS STILL ON LASIX Non-ST elevation CT Status post left heart catheterization Cardiology following and continue with above medical regiment Ischemic cardiomyopathy EF 30-35% by both echo and cath. No evidence for acute CHF. Continue with beta cristine, Lasix 40 IV twice a day Status post laparoscopic bilateral inguinal hernia 06/17/17 Continue current postop care Discharge Planning WILL NEED [facility] MORE THAN LIKELY AT [place], MAY NEED SNF VS [facility] LIV[facility] AT HOME WITH Grieper,Juan Daniel Jauregui DO Jun 24, 2017 10:19
[2017-06-24 11:38] LABS: HEMOGLOBIN A1a 1.1 %; HEMOGLOBIN A1b 1.6 %; HEMOGLOBIN Ao 85.7 %; HEMOGLOBIN LA1C 2.2 %; HEMOGLOBIN P3 3.8 %
[2017-06-24] MEDS ORDERED: ACETAMINOPHEN/HYDROcodone 325 MG/5 MG TAB PO PRN (14:30)
--- NOTE | 2017-06-24 15:27 | HHI.PR ---
Subjective Subjective Notes Up to chair at bedside DC planning for tomorrow Objective Vitals/I&O Vital Signs Date Time Temp Pulse Resp B/P (MAP) Pulse Ox O2 Delivery O2 Flow Rate FiO2 06/24/17 14:00 82 06/24/17 11:00 97.9 20 133/86 (102) 92 06/24/17 11:00 Room Air 06/23/17 11:15 2.00 06/21/17 20:12 35 Labs Laboratory Tests Test 06/24/17 04:33 White Blood Count 12.2 Red Blood Count 3.58 Hemoglobin 11.5 Hematocrit 33.8 Mean Corpuscular Volume 94.6 Mean Corpuscular Hemoglobin 32.2 Mean Corpuscular Hemoglobin Concent 34.1 Red Cell Distribution Width 13.0 Platelet Count 114 Mean Platelet Volume 8.5 Neutrophils (%) (Auto) 73.9 Lymphocytes (%) (Auto) 14.5 Monocytes (%) (Auto) 11.0 Eosinophils (%) (Auto) 0.3 Basophils (%) (Auto) 0.3 Neutrophils # (Auto) 9.0 Lymphocytes # (Auto) 1.8 Monocytes # (Auto) 1.4 Eosinophils # (Auto) 0.0 Basophils # (Auto) 0.0 CBC Comment DIFF FINAL Differential Comment Blood Urea Nitrogen 29 Creatinine 0.84 Random Glucose 110 Total Protein 5.7 Albumin 2.6 Calcium Level 7.8 Phosphorus Level 2.2 Magnesium Level 2.3 Alkaline Phosphatase 43 Aspartate Amino Transf (AST/SGOT) 23 Alanine Aminotransferase (ALT/SGPT) 22 Total Bilirubin 1.2 Sodium Level 141 Potassium Level 3.6 Chloride Level 105 Carbon Dioxide Level 28.5 Anion Gap 8 Estimat Glomerular Filtration Rate 88 Hemoglobin A1c 5.4 Free Thyroxine 1.14 Thyroid Stimulating Hormone 3rd Gen 1.680 Cardiovascular: Regular Lungs: Clear Abdomen: Other (lap sites c/d/i ) Extremities: No edema A/P Assessment and Plan 81 year old male s/p laparoscopic bilateral inguinal hernia in outpatient surgery center; post op EKG changes; POD3 CABG -Regular diet -Pain control -No issues from [facility] surgery -Will follow up with Dr. Grove in a few weeks Ellen Leach Jun 24, 2017 15:27
[2017-06-24] MEDS ORDERED: POTASSIUM CHLORIDE 10 MEQ CONTROLLED RELEASE TAB PO ONE (15:45)
--- NOTE | 2017-06-24 15:46 | PD.CAR.PN ---
CVT Progress Note Subjective/Hospital Course: 81-year-old male who recently moved to the [place] area about a year and a half ago. , he apparently recent UTI where he saw Dr. Blanc who noticed the bilateral inguinal hernias and then sent him to Dr. Grove. The patient underwent laparoscopic bilateral hernia repair at an outpatient surgery center on 06/[address] Grove. They noticed some perioperative and postop EKG changes where he had some ST-segment changes seen on the monitor and he was transferred to [facility]. His troponins were 2.43 then 5.58. EKG did show some poor R-wave progression in the anterior leads and T-wave inversion in the lateral leads. He did undergo cardiac cath by Dr. Shoaib Berry which showed an EF of 30%, left main disease at 15%. The LAD had an 80% stenosis proximally. The second diagonal had a 60% ostial lesion. The RCA was totally occluded, however, there were some collaterals. The echocardiogram also showed EF of 30-35 %, trace MR, trace aortic insufficiency, some global systolic dysfunction. Normal left atrial and right atrial size. We were consulted to evaluate for coronary artery bypass grafting. PAST MEDICAL HISTORY The patient has basically no medical history, has not seen a doctor in quite some time, has been rather healthy. 06/20/17 Denies chest pain/symptoms. c/o constipation 06/21/17 surgery today CABG x 3, BANERJEE to LAD - fair, SVG to OM - good, SVG to PDA - fair, EVH, YEN 06/22 doing well chest tube removed wean 02 + BM 06/23 replace K+ OOB , eval for dc home, remains in NSR Objective: GENERAL: SKIN: Warm and dry.prevena dressing to chest , incision intact to leg HEAD: Normocephalic. EYES: No scleral icterus. No injection or drainage. NECK: Supple, trachea midline. No JVD or lymphadenopathy. CARDIOVASCULAR: Regular rate and rhythm without murmurs, gallops, or rubs. RESPIRATORY: Breath sounds equal bilaterally. No accessory muscle use. chest tube removed without difficulty GASTROINTESTINAL: soft, + bowel sounds BACK: Nontender without obvious deformity. No CVA tenderness. : mild scrotal edema Vital Signs Date Time Temp Pulse Resp B/P (MAP) Pulse Ox O2 Delivery O2 Flow Rate FiO2 06/24/17 15:36 85 06/24/17 15:29 94 Room Air 06/24/17 15:26 97.4 79 18 135/69 (91) 94 06/24/17 14:00 82 06/24/17 13:00 80 06/24/17 12:00 80 06/24/17 11:00 97.9 84 20 133/86 (102) 92 06/24/17 11:00 80 06/24/17 11:00 92 Room Air 06/24/17 10:00 84 06/24/17 09:00 86 06/24/17 08:20 94 Room Air 06/24/17 08:16 98.2 84 19 139/62 (87) 94 06/24/17 08:00 76 06/24/17 07:00 76 06/24/17 06:00 85 06/24/17 05:00 87 06/24/17 04:00 78 06/24/17 03:47 93 Room Air 06/24/17 03:47 98.4 85 18 125/58 (80) 93 06/24/17 03:00 81 06/24/17 02:21 77 06/24/17 01:10 78 06/24/17 00:55 98.3 72 18 118/56 (76) 93 06/24/17 00:55 93 Room Air 06/24/17 00:54 72 06/23/17 23:00 78 06/23/17 22:00 80 06/23/17 22:00 96 06/23/17 22:00 18 06/23/17 21:00 96 06/23/17 21:00 98.4 87 18 121/65 (83) 93 06/23/17 21:00 93 Room Air 06/23/17 21:00 87 06/23/17 20:00 96 06/23/17 19:00 94 06/23/17 18:00 96 06/23/17 17:00 94 06/23/17 16:00 93 06/23/17 15:42 94 Room Air 06/23/17 15:42 97.8 91 16 134/63 (86) 94 Labs: Laboratory Tests Test 06/24/17 04:33 White Blood Count 12.2 TH/MM3 (4.0-11.0) Red Blood Count 3.58 MIL/MM3 (4.50-5.90) Hemoglobin 11.5 GM/DL (13.0-17.0) Hematocrit 33.8 % (39.0-51.0) Mean Corpuscular Volume 94.6 FL (80.0-100.0) Mean Corpuscular Hemoglobin 32.2 PG (27.0-34.0) Mean Corpuscular Hemoglobin Concent 34.1 % (32.0-36.0) Red Cell Distribution Width 13.0 % (11.6-17.2) Platelet Count 114 TH/MM3 (150-450) Mean Platelet Volume 8.5 FL (7.0-11.0) Neutrophils (%) (Auto) 73.9 % (16.0-70.0) Lymphocytes (%) (Auto) 14.5 % (9.0-44.0) Monocytes (%) (Auto) 11.0 % (0.0-8.0) Eosinophils (%) (Auto) 0.3 % (0.0-4.0) Basophils (%) (Auto) 0.3 % (0.0-2.0) Neutrophils # (Auto) 9.0 TH/MM3 (1.8-7.7) Lymphocytes # (Auto) 1.8 TH/MM3 (1.0-4.8) Monocytes # (Auto) 1.4 TH/MM3 (0-0.9) Eosinophils # (Auto) 0.0 TH/MM3 (0-0.4) Basophils # (Auto) 0.0 TH/MM3 (0-0.2) CBC Comment DIFF FINAL Differential Comment Blood Urea Nitrogen 29 MG/DL (7-18) Creatinine 0.84 MG/DL (0.60-1.30) Random Glucose 110 MG/DL (74-106) Total Protein 5.7 GM/DL (6.4-8.2) Albumin 2.6 GM/DL (3.4-5.0) Calcium Level 7.8 MG/DL (8.5-10.1) Phosphorus Level 2.2 MG/DL (2.5-4.9) Magnesium Level 2.3 MG/DL (1.5-2.5) Alkaline Phosphatase 43 U/L (45-117) Aspartate Amino Transf (AST/SGOT) 23 U/L (15-37) Alanine Aminotransferase (ALT/SGPT) 22 U/L (12-78) Total Bilirubin 1.2 MG/DL (0.2-1.0) Sodium Level 141 MEQ/L (136-145) Potassium Level 3.6 MEQ/L (3.5-5.1) Chloride Level 105 MEQ/L (98-107) Carbon Dioxide Level 28.5 MEQ/L (21.0-32.0) Anion Gap 8 MEQ/L (5-15) Estimat Glomerular Filtration Rate 88 ML/MIN (>89) Hemoglobin A1c 5.4 % (4.3-6.0) Free Thyroxine 1.14 NG/DL (0.76-1.46) Thyroid Stimulating Hormone 3rd Gen 1.680 uIU/ML (0.358-3.740) Result Diagram: 06/24/1743206/24/17432 Telemetry: NSR (1) Non-ST elevation SC (NSTEMI) Plan: Cardiac enzymes clearly consistent with NSTEMI. . 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 resume DEVIKA inhibitor / when stable (2) Ischemic cardiomyopathy Plan: EF 30-35% by both echo and cath. No evidence for acute CHF. Rec continue beta cristine, DEVIKA-I. I suspect his EF will improve after CABG. (3) s/p recent lap bilateral hernia repair (4) S/P CABG x 3 Plan: ASA, statin , BB pulm toileting nebs ezpap acachino BANERJEE, ambulate Leena Malcolm Jun 24, 2017 15:46
[2017-06-24] MEDS: LISINOPRIL 5 MG TAB PO SCH (16:48)
[2017-06-24] MEDS: SENNOSIDES 8.6 MG TAB PO SCH (21:32)
[2017-06-24] MEDS: ATORVASTATIN 40 MG TAB PO SCH (21:34)
[2017-06-25] VITALS (15 sets, daily range): BP systolic 104–106; BP diastolic 51–56; PULSE 66–80; RESP 16–18; TEMP 97.7–98; O2SAT 93–94
[2017-06-25 05:12] LABS: AUTOMATED NEUTROPHIL # 6.6 TH/MM3 (1.8-7.7); BASOPHIL % 0.4 % (0.0-2.0); EOSINOPHIL # 0.1 TH/MM3 (0-0.4); EOSINOPHIL % 1.4 % (0.0-4.0); HEMATOCRIT 31.2 % (39.0-51.0); HEMO FLAGS DIFF FINAL; LYMPH % 18.3 % (9.0-44.0); LYMPHOCYTE # 1.7 TH/MM3 (1.0-4.8); MEAN CORPUSCULAR HEMOGLOBIN 33.3 PG (27.0-34.0); MEAN CORPUSCULAR HGB CONC 35.1 % (32.0-36.0); MONO % 10.3 % (0.0-8.0); NEUT % 69.6 % (16.0-70.0); PLATELET COUNT 133 TH/MM3 (150-450); RED BLOOD COUNT 3.28 MIL/MM3 (4.50-5.90); RED CELL DISTRIBUTION WIDTH 12.7 % (11.6-17.2); WHITE BLOOD COUNT 9.5 TH/MM3 (4.0-11.0)
[2017-06-25 05:18] LABS: ANION GAP 6 MEQ/L (5-15); AST (GOT) 19 U/L (15-37); BICARBONATE 30.8 MEQ/L (21.0-32.0); BLOOD UREA NITROGEN 31 MG/DL (7-18); CHLORIDE 103 MEQ/L (98-107); GLOMERULAR FILTRATION RATE 81 ML/MIN (>89); MAGNESIUM 2.5 MG/DL (1.5-2.5); POTASSIUM 3.7 MEQ/L (3.5-5.1); SODIUM (NA) 140 MEQ/L (136-145)
[2017-06-25 05:19] LABS: ALT (GPT) 20 U/L (12-78)
[2017-06-25 05:21] LABS: ALKALINE PHOSPHATASE 44 U/L (45-117)
[2017-06-25] MEDS: PANTOPRAZOLE SOD 40 MG DELAYED RELEASE TAB PO SCH (06:14)
[2017-06-25] MEDS: ACETAMINOPHEN/HYDROcodone 325 MG/5 MG TAB PO PRN (06:17)
[2017-06-25] MEDS: INSULIN ASPART SUPPLEMENTAL SCALE SQ SCH ×2 (08:00→11:20)
[2017-06-25] MEDS: SODIUM CHLORIDE 0.9% FLUSH 10 ML FLUSH IV FLUSH SCH (09:20)
[2017-06-25] MEDS: FUROSEMIDE 40 MG/4 ML VIAL IV PUSH SCH (09:20)
[2017-06-25] MEDS: POLYETHYLENE GLYCOL 17 GM PKG PO SCH (09:21)
[2017-06-25] MEDS: LISINOPRIL 5 MG TAB PO SCH (09:21)
[2017-06-25] MEDS: MAGNESIUM HYDROXIDE SUSP 30 ML CUP PO SCH (09:21)
[2017-06-25] MEDS: CARVEDILOL 3.125 MG TAB PO SCH (09:21)
[2017-06-25] MEDS: MULTIVITAMINS/MINERALS THERAPEUTIC TAB PO SCH (09:21)
[2017-06-25] MEDS: DOCUSATE SODIUM 100 MG CAP PO SCH (09:21)
[2017-06-25] MEDS: ASPIRIN EC 81 MG TABEC PO SCH (09:21)
[2017-06-25] MEDS: LACTULOSE SYRUP 20 GM/30 ML CUP PO SCH (09:22)
[2017-06-25] MEDS ORDERED: POTASSIUM PHOSPHATE MONOBASIC 500 MG TAB PO SCH (11:00)
[2017-06-25] MEDS ORDERED: POTASSIUM CHLORIDE 10 MEQ CONTROLLED RELEASE TAB PO ONE (11:00)
[2017-06-25] MEDS ORDERED: POTASSIUM PHOSPHATE INJ 15 MMOL in SODIUM CHLORIDE 0.9% INJ 150 ML IV ONE (11:00)
[2017-06-25] MEDS ORDERED: DOCU1CAP39 PO (12:15)
[2017-06-25] MEDS ORDERED: POLY17S PO (12:15)
[2017-06-25] MEDS ORDERED: ATOR40TA16 PO (12:15)
[2017-06-25] MEDS ORDERED: THERM PO (12:15)
[2017-06-25] MEDS ORDERED: LISI-519 PO (12:15)
[2017-06-25] MEDS ORDERED: HYDR-3516 PO (12:15)
[2017-06-25] MEDS ORDERED: CARV3.125 PO (12:15)
[2017-06-25] MEDS ORDERED: ECASA81 PO (12:15)
--- NOTE | 2017-06-25 12:22 | HHI.DS ---
Discharge Summary Admission Date Jun 19, 2017 at 11:28 Discharge Date: Jun 25, 2017 Admitting Diagnosis chest pain , NSTEMI (1) Multi-vessel coronary artery stenosis Diagnosis: Principal ICD Codes: I25.10 - Atherosclerotic heart disease of [place] coronary artery without angina pectoris (2) Non-ST elevation MS (NSTEMI) Diagnosis: Principal ICD Codes: I21.4 - Non-ST elevation (NSTEMI) myocardial infarction Status: Acute (3) Ischemic cardiomyopathy Diagnosis: Principal ICD Codes: I25.5 - Ischemic cardiomyopathy Status: Chronic (4) s/p recent lap bilateral hernia repair Diagnosis: Secondary (5) S/P CABG x 3 Diagnosis: Secondary ICD Codes: Z95.1 - Presence of aortocoronary bypass graft Procedures CABG x 3 06/21 BANERJEE to LAD - fair SVG to OM - good SVG to PDA - fair EVH YEN Brief History 81-year-old male who recently moved to the [place] area about a year and a half ago. , he apparently recent UTI where he saw Dr. Blanc who noticed the bilateral inguinal hernias and then sent him to Dr. Grove. The patient underwent laparoscopic bilateral hernia repair at an outpatient surgery center on 06/[address] Grove. They noticed some perioperative and postop EKG changes where he had some ST-segment changes seen on the monitor and he was transferred to [facility]. His troponins were 2.43 then 5.58. EKG did show some poor R-wave progression in the anterior leads and T-wave inversion in the lateral leads. He did undergo cardiac cath by Dr. Shoaib Berry which showed an EF of 30%, left main disease at 15%. The LAD had an 80% stenosis proximally. The second diagonal had a 60% ostial lesion. The RCA was totally occluded, however, there were some collaterals. The echocardiogram also showed EF of 30-35 %, trace MR, trace aortic insufficiency, some global systolic dysfunction. Normal left atrial and right atrial size. We were consulted to evaluate for coronary artery bypass grafting. PAST MEDICAL HISTORY The patient has basically no medical history, has not seen a doctor in quite some time, has been rather healthy. CBC/BMP: 06/25/17 0402 06/25/17 0402 Significant Findings Laboratory Tests Test 06/22/17 21:10 06/23/17 05:00 06/24/17 04:33 06/25/17 04:02 Blood Urea Nitrogen 24 MG/DL (7-18) 26 MG/DL (7-18) 29 MG/DL (7-18) 31 MG/DL (7-18) Random Glucose 131 MG/DL (74-106) 125 MG/DL (74-106) 110 MG/DL (74-106) Calcium Level 8.0 MG/DL (8.5-10.1) 8.1 MG/DL (8.5-10.1) 7.8 MG/DL (8.5-10.1) 7.8 MG/DL (8.5-10.1) Estimat Glomerular Filtration Rate 64 ML/MIN (>89) 83 ML/MIN (>89) 88 ML/MIN (>89) 81 ML/MIN (>89) White Blood Count 15.7 TH/MM3 (4.0-11.0) 12.2 TH/MM3 (4.0-11.0) Red Blood Count 3.86 MIL/MM3 (4.50-5.90) 3.58 MIL/MM3 (4.50-5.90) 3.28 MIL/MM3 (4.50-5.90) Hemoglobin 12.2 GM/DL (13.0-17.0) 11.5 GM/DL (13.0-17.0) 10.9 GM/DL (13.0-17.0) Hematocrit 36.9 % (39.0-51.0) 33.8 % (39.0-51.0) 31.2 % (39.0-51.0) Platelet Count 117 TH/MM3 (150-450) 114 TH/MM3 (150-450) 133 TH/MM3 (150-450) Neutrophils (%) (Auto) 77.2 % (16.0-70.0) 73.9 % (16.0-70.0) Monocytes (%) (Auto) 12.4 % (0.0-8.0) 11.0 % (0.0-8.0) 10.3 % (0.0-8.0) Neutrophils # (Auto) 12.1 TH/MM3 (1.8-7.7) 9.0 TH/MM3 (1.8-7.7) Monocytes # (Auto) 2.0 TH/MM3 (0-0.9) 1.4 TH/MM3 (0-0.9) 1.0 TH/MM3 (0-0.9) Total Protein 5.7 GM/DL (6.4-8.2) 5.8 GM/DL (6.4-8.2) Albumin 2.6 GM/DL (3.4-5.0) 2.6 GM/DL (3.4-5.0) Phosphorus Level 2.2 MG/DL (2.5-4.9) 2.2 MG/DL (2.5-4.9) Alkaline Phosphatase 43 U/L (45-117) 44 U/L (45-117) Total Bilirubin 1.2 MG/DL (0.2-1.0) Imaging Last Impressions Chest X-Ray 06/24/17 0600 Signed Impressions: Service Date/Time: June 03:50 - CONCLUSION: A left chest tube has been removed with some residual pleural reaction. Questionable fracture left first rib. No pneumothorax is seen. Miah Plata MD Lower Extremity Ultrasound 06/17/17 0000 Signed Impressions: Service Date/Time: June 19:15 - CONCLUSION: Patent greater saphenous veins bilaterally with measurements above. Michael Bradford Jr., MD Carotid Artery Ultrasound 06/17/17 0000 Signed Impressions: Service Date/Time: June 19:36 - CONCLUSION: 1. Calcified plaque involving the carotid arteries bilaterally without hemodynamically significant stenosis involving either carotid. 2. Antegrade flow involving both vertebral arteries. Michael Bradford Jr., MD PE at Discharge GENERAL: SKIN: Warm and dry. prevena dressing to chest, incision intact to left leg HEAD: Normocephalic. EYES: No scleral icterus. No injection or drainage. NECK: Supple, trachea midline. No JVD or lymphadenopathy. CARDIOVASCULAR: Regular rate and rhythm without murmurs, gallops, or rubs. RESPIRATORY: Breath sounds equal bilaterally. No accessory muscle use. GASTROINTESTINAL: Abdomen soft, non-tender, nondistended. MUSCULOSKELETAL: No cyanosis, or edema. BACK: Nontender without obvious deformity. No CVA tenderness. Hospital Course 08/20/16 Denies chest pain/symptoms. c/o constipation 06/21/17 surgery CABG x 3, BANERJEE to LAD - fair, SVG to OM - good, SVG to PDA - fair, EVH, YEN 06/22 doing well chest tube removed wean 02 + BM 06/23 replace K+ OOB , eval for dc home, remains in NSR 06/24 stable continue ambulation, pulm toielting nebs ezpap 06/25. stable for dc home + BM, remains in NSR on shamar , BB, amiodarone Pt Condition on Discharge: Good Discharge Disposition: Disch w/ Home Health Serv Discharge Instructions DIET: Follow Instructions for: Heart Healthy Diet Activities you can perform: Full Weight Bearing, Shower Only-No Bath Activities to avoid: Strenuous Activity, Driving Follow up Referrals: Appointment for Follow Up with Tim Grove MD Cardiology, Interventional with Shoaib Berry MD PCP Follow-up Surgical with Odalis Burrows MD New Orders: BASIC METABOLIC PROF - 2 Weeks CBC NO DIFF - 2 Weeks X-RAY CHEST PA & LAT - 2 Weeks New Medications: Aspirin DR (Aspirin DR) 81 Mg Tabdr 81 MG PO DAILY for Blood Clot Prevention, #30 TAB 2 Refills Atorvastatin (Atorvastatin) 40 Mg Tab 40 MG PO HS for Cholesterol Management, #30 TAB 2 Refills Carvedilol (Coreg) 3.125 Mg Tab 3.125 MG PO Q12HR for Blood Pressure Management, #60 TAB 2 Refills Docusate Sodium (Dok) 100 Mg Cap 100 MG PO BID for Constipation, #60 CAP 0 Refills Hydrocodone/Acetaminophen (Hydrocodone-Acetamin 5-325 mg) 5 Mg-325 Mg Tablet 1 TAB PO Q4H PRN for PAIN SCALE 1-5, #30 TAB 0 Refills Lisinopril (Lisinopril) 5 Mg Tab 2.5 MG PO DAILY for Blood Pressure Management, #30 TAB 2 Refills Multiple Vitamins W/ Minerals (Thera M Plus) 1 Tab 1 TAB PO DAILY for multi vitamin, #30 TAB Polyethylene Glycol 3350 Powder (Polyethylene Glycol 3350 Powder) 17 Gram Pow 17 GM PO DAILY for Constipation, #30 PACKET Leena Malcolm Jun 25, 2017 12:22
[2017-06-25] MEDS ORDERED: AMIO200T PO (12:25)
[2017-06-25] MEDS ORDERED: AMIODARONE 200 MG TAB PO ONE (12:30)
[2017-06-25] MEDS ORDERED: COMMODE 3-IN-11 MIS (13:12)
--- NOTE | 2017-06-25 13:24 | HHI.PR ---
Subjective Remarks Follow-up severe three-vessel CAD 06/19/17-patient seen and examined, denies any chest pain or shortness of breath. 06/20/17-patient seen and examined, denies any shortness of breath no acute event overnight. Stable 06/21/17-patient seen and examined, currently nothing by mouth. No acute event overnight. Positive for bowel movement 06/22/17-patient seen and examined, he status post CABG 3. Stable this morning and currently afebrile. 06/23 PATIENT SEEN AND EXAMINED- DIET ADVANCED- NO NEW COMPLAINTS DW RN AND PT AND 06/24 NOT EATING MUCH, LIVES WITH AT HOME. MAY NEED REHAB VS HHC DW RN AND PT NOT CLEARED BY SURGERY FOR DC YET AM LABS DOES NOT FEEL READY TO GO HOME YET 06-25 CLEARED BY [facility]- GOING HOME TODAY HAS [facility] SET UP Objective Vitals Vital Signs Date Time Temp Pulse Resp B/P (MAP) Pulse Ox O2 Delivery O2 Flow Rate FiO2 06/25/17 12:08 93 Room Air 06/25/17 12:00 80 06/25/17 11:10 98.0 74 18 106/51 (69) 93 06/25/17 11:00 70 06/25/17 10:00 70 06/25/17 09:00 66 06/25/17 08:00 70 06/25/17 07:15 97.7 67 16 106/55 (72) 94 06/25/17 07:15 94 Room Air 06/25/17 07:00 67 06/25/17 06:03 69 06/25/17 05:03 70 06/25/17 04:00 68 06/25/17 03:20 93 Room Air 06/25/17 03:20 97.9 70 16 104/56 (72) 93 06/25/17 03:20 70 06/25/17 02:12 68 06/25/17 01:00 68 06/25/17 00:00 68 06/24/17 23:40 94 Room Air 06/24/17 23:40 97.6 73 20 109/56 (73) 94 06/24/17 23:00 71 06/24/17 22:00 76 06/24/17 21:00 76 06/24/17 20:00 76 06/24/17 19:55 98.3 78 16 108/52 (70) 92 06/24/17 19:55 92 Room Air 06/24/17 19:00 75 06/24/17 18:00 76 06/24/17 17:00 76 06/24/17 16:00 78 06/24/17 15:36 85 06/24/17 15:29 94 Room Air 06/24/17 15:26 97.4 79 18 135/69 (91) 94 06/24/17 14:00 82 I/O 06/24/17 06/24/17 06/24/17 06/25/17 06/25/17 06/25/17 07:00 15:00 23:00 07:00 15:00 23:00 Intake Total 120 ml 920 ml 240 ml Output Total 400 ml 800 ml 275 ml Balance -280 ml 120 ml -35 ml Intake Oral 120 ml 920 ml 240 ml Output Urine Total 400 ml 800 ml 275 ml # Bowel Movements 0 Result Diagram: 06/25/17 0402 06/25/17 0402 Other Results Laboratory Tests Test 06/22/17 21:10 06/23/17 05:00 06/24/17 04:33 06/25/17 04:02 Blood Urea Nitrogen 24 MG/DL 26 MG/DL 29 MG/DL 31 MG/DL Creatinine 1.10 MG/DL 0.88 MG/DL 0.84 MG/DL 0.90 MG/DL Random Glucose 131 MG/DL 125 MG/DL 110 MG/DL 95 MG/DL Calcium Level 8.0 MG/DL 8.1 MG/DL 7.8 MG/DL 7.8 MG/DL Sodium Level 139 MEQ/L 142 MEQ/L 141 MEQ/L 140 MEQ/L Potassium Level 3.9 MEQ/L 4.2 MEQ/L 3.6 MEQ/L 3.7 MEQ/L Chloride Level 106 MEQ/L 107 MEQ/L 105 MEQ/L 103 MEQ/L Carbon Dioxide Level 25.4 MEQ/L 26.8 MEQ/L 28.5 MEQ/L 30.8 MEQ/L Anion Gap 8 MEQ/L 8 MEQ/L 8 MEQ/L 6 MEQ/L Estimat Glomerular Filtration Rate 64 ML/MIN 83 ML/MIN 88 ML/MIN 81 ML/MIN White Blood Count 15.7 TH/MM3 12.2 TH/MM3 9.5 TH/MM3 Red Blood Count 3.86 MIL/MM3 3.58 MIL/MM3 3.28 MIL/MM3 Hemoglobin 12.2 GM/DL 11.5 GM/DL 10.9 GM/DL Hematocrit 36.9 % 33.8 % 31.2 % Mean Corpuscular Volume 95.6 FL 94.6 FL 95.0 FL Mean Corpuscular Hemoglobin 31.7 PG 32.2 PG 33.3 PG Mean Corpuscular Hemoglobin Concent 33.2 % 34.1 % 35.1 % Red Cell Distribution Width 13.1 % 13.0 % 12.7 % Platelet Count 117 TH/MM3 114 TH/MM3 133 TH/MM3 Mean Platelet Volume 8.6 FL 8.5 FL 8.6 FL Neutrophils (%) (Auto) 77.2 % 73.9 % 69.6 % Lymphocytes (%) (Auto) 10.2 % 14.5 % 18.3 % Monocytes (%) (Auto) 12.4 % 11.0 % 10.3 % Eosinophils (%) (Auto) 0.1 % 0.3 % 1.4 % Basophils (%) (Auto) 0.1 % 0.3 % 0.4 % Neutrophils # (Auto) 12.1 TH/MM3 9.0 TH/MM3 6.6 TH/MM3 Lymphocytes # (Auto) 1.6 TH/MM3 1.8 TH/MM3 1.7 TH/MM3 Monocytes # (Auto) 2.0 TH/MM3 1.4 TH/MM3 1.0 TH/MM3 Eosinophils # (Auto) 0.0 TH/MM3 0.0 TH/MM3 0.1 TH/MM3 Basophils # (Auto) 0.0 TH/MM3 0.0 TH/MM3 0.0 TH/MM3 CBC Comment DIFF FINAL DIFF FINAL DIFF FINAL Differential Comment Magnesium Level 2.4 MG/DL 2.3 MG/DL 2.5 MG/DL Total Protein 5.7 GM/DL 5.8 GM/DL Albumin 2.6 GM/DL 2.6 GM/DL Phosphorus Level 2.2 MG/DL 2.2 MG/DL Alkaline Phosphatase 43 U/L 44 U/L Aspartate Amino Transf (AST/SGOT) 23 U/L 19 U/L Alanine Aminotransferase (ALT/SGPT) 22 U/L 20 U/L Total Bilirubin 1.2 MG/DL 1.0 MG/DL Hemoglobin A1c 5.4 % Free Thyroxine 1.14 NG/DL Thyroid Stimulating Hormone 3rd Gen 1.680 uIU/ML Imaging Last Impressions Chest X-Ray 06/24/17 0600 Signed Impressions: Service Date/Time: June 03:50 - CONCLUSION: A left chest tube has been removed with some residual pleural reaction. Questionable fracture left first rib. No pneumothorax is seen. Miah Plata MD Lower Extremity Ultrasound 06/17/17 0000 Signed Impressions: Service Date/Time: June 19:15 - CONCLUSION: Patent greater saphenous veins bilaterally with measurements above. Michael Bradford Jr., MD Carotid Artery Ultrasound 06/17/17 0000 Signed Impressions: Service Date/Time: June 19:36 - CONCLUSION: 1. Calcified plaque involving the carotid arteries bilaterally without hemodynamically significant stenosis involving either carotid. 2. Antegrade flow involving both vertebral arteries. Michael Bradford Jr., MD Objective Remarks GENERAL: Awake alert oriented talkative and cooperative --oriented 3 SKIN: Warm and dry. Chest is dressed HEAD: Atraumatic. Normocephalic. EYES: Pupils equal and round. No scleral icterus. No injection or drainage. Extraocular muscles intact ENT: No nasal bleeding or discharge. Mucous membranes pink and moist. Tongue is midline NECK: Trachea midline. No JVD. Supple CARDIOVASCULAR: Regular rate and rhythm. S1-S2 no S3 or S4 RESPIRATORY: No accessory muscle use. Clear to auscultation. Breath sounds equal bilaterally. GASTROINTESTINAL: Abdomen soft, non-tender, nondistended. Hepatic and splenic margins not palpable. MUSCULOSKELETAL: Extremities without clubbing, cyanosis, or edema. No obvious deformities. NEUROLOGICAL: Awake and alert. No obvious cranial nerve deficits. Motor grossly within normal limits. 4 out of 5 muscle strength in the arms and legs. Normal speech. PSYCHIATRIC: Appropriate mood and affect; insight and judgment normal. Procedures Status post CABG x 3 06/21/17 Status post laparoscopic bilateral inguinal hernia 06/17/17 Medications and IVs Current Medications Ondansetron HCl (Zofran Inj) 4 mg Q6H PRN IV PUSH NAUSEA; Start 06/16/17 at 18: 00; Stop 06/21/17 at 16:02; Status DC Lorazepam (Ativan Inj) 1 mg Q6H PRN IV ANXIETY Last administered on 06/18/17t 20:28; Start 06/16/17 at 18:00; Stop 06/20/17 at 11:04; Status DC Acetaminophen/ Hydrocodone Bitart (Bethel 5-325 Mg) 1 tab Q4H PRN PO PAIN 1-10 ; Start 06/16/17 at 18:00; Stop 06/21/17 at 16:15; Status DC Morphine Sulfate (Morphine Inj) 3 mg Q2H PRN IV SEVERE PAIN 1-10; Start at 18:00; Stop 06/20/17 at 11:04; Status DC Sodium Chloride 1,000 ml @ 0 mls/hr Q0M IV ; Start 06/16/17 at 18:00; Stop at 09:42; Status DC Influenza Virus Vaccine (Flu (Quadrivalent) Vaccine Inj) 0.5 ml ONCE ONCE IM Last administered on 06/17/17 09:09; Start 06/17/17 at 10:00; Stop 06/17/17 at 10:01; Status DC Pneumococcal Polyvalent Vaccine (Pneumovax-23 Inj) 25 mcg ONCE ONCE IM Last administered on 06/17/17 09:10; Start 06/17/17 at 10:00; Stop 06/17/17 at 10:01 ; Status DC Carvedilol (Coreg) 3.125 mg Q12HR PO Last administered on 06/21/17 09:09; Start 06/16/17 at 21:00; Stop 06/21/17 at 15:57; Status DC Enalapril Maleate (Vasotec) 2.5 mg DAILY PO Last administered on 06/17/17 09: 00; Start 06/17/17 at 09:00; Stop 06/20/17 at 11:04; Status DC Aspirin (Ecotrin Ec) 81 mg DAILY PO ; Start 06/16/17 at 20:30; Stop 06/18/17 at 07:41; Status DC Sodium Chloride 1,000 ml @ 100 mls/hr Q10H IV Last administered on 06/21/17 16:53; Start 06/17/17 at 08:08; Stop 06/22/17 at 08:07; Status DC Aspirin (Aspirin) 325 mg FAMILY PRACTICE PHYSICIAN PO Last administered on 06/17/17 09:09; Start 06/17/17 at 08:15; Stop 06/18/17 at 07:41; Status DC Diphenhydramine HCl (Benadryl) 50 mg FAMILY PRACTICE PHYSICIAN PO ; Start 06/17/17 at 08:15; Stop 06/21/17 at 08:14; Status DC Diazepam (Valium) 10 mg FAMILY PRACTICE PHYSICIAN PO ; Start 06/17/17 at 08:15; Stop 06/21/17 at 08:14; Status DC Midazolam HCl (Versed Inj) 2 mg STK-MED ONCE .ROUTE Last administered on 14:03; Start 06/17/17 at 13:36; Stop 06/17/17 at 13:37; Status DC Verapamil HCl (Isoptin Inj) 5 mg STK-MED ONCE .ROUTE Last administered on 14:06; Start 06/17/17 at 13:36; Stop 06/17/17 at 13:37; Status DC Heparin Sodium (Porcine) (Heparin Inj) 10,000 units STK-MED ONCE .ROUTE Last administered on 06/17/17 14:06; Start 06/17/17 at 13:36; Stop 06/17/17 at 13:37 ; Status DC Nitroglycerin 5 ml @ As Directed STK-MED ONCE .ROUTE Last administered on 14:06; Start 06/17/17 at 13:36; Stop 06/17/17 at 13:37; Status DC Heparin Sodium/ Sodium Chloride 1,000 ml @ As Directed STK-MED ONCE .ROUTE Last administered on 06/17/17 13:37; Start 06/17/17 at 13:37; Stop 06/17/17 at 13:38; Status DC Fentanyl Citrate (fentaNYL INJ) 100 mcg STK-MED ONCE .ROUTE Last administered on 06/17/17 14:04; Start 06/17/17 at 14:02; Stop 06/17/17 at 14:03; Status DC Heparin Sodium/ Sodium Chloride 1,000 ml @ As Directed STK-MED ONCE .ROUTE Last administered on 06/17/17 14:48; Start 06/17/17 at 14:48; Stop 06/17/17 at 14:49; Status DC Aspirin (Ecotrin Ec) 81 mg DAILY PO Last administered on 06/25/17 09:21; Start 06/18/17 at 09:00 Iohexol (OMNIPAQUE 350 INJ (Power Lineman)) 50 ml STK-MED ONCE OTHER ; Start at 17:39; Stop 06/18/17 at 10:27; Status DC Iohexol (OMNIPAQUE 350 INJ (Power Lineman)) 100 ml STK-MED ONCE OTHER ; Start at 17:39; Stop 06/18/17 at 10:27; Status DC Magnesium Hydroxide (Milk Of Magnesia Liq) 30 ml DAILY PRN PO constipation Last administered on 06/20/17 11:22; Start 06/18/17 at 14:45; Stop 06/24/17 at 10:50; Status DC Heparin Sodium/ Dextrose 250 ml @ 10 mls/hr TITRATE PRN IV Coagulation Management Last administered on 06/20/17 22:28; Start 06/18/17 at 16:45; Stop 06/21/17 at 15:57; Status DC Sodium Chloride (NS Flush) 2 ml BID IV FLUSH Last administered on 06/19/17 21 :19; Start 06/18/17 at 21:00; Stop 06/21/17 at 16:11; Status DC Sodium Chloride (NS Flush) 2 ml UNSCH PRN IV FLUSH FLUSH AFTER USING IV ACCESS ; Start 06/18/17 at 16:45; Stop 06/21/17 at 16:11; Status DC Papaverine HCl 60 mg/Nitroglycerin 100 mcg/Diltiazem HCl 100 mg/Sodium Chloride 100 ml @ 0 mls/hr FAMILY PRACTICE PHYSICIAN IRRIGATION ; Start 06/18/17 at 16:45; Stop at 09:42; Status DC Cefazolin Sodium 500 mg/Sodium Chloride 505 ml @ 0 mls/hr FAMILY PRACTICE PHYSICIAN IRRIGATION ; Start 06/18/17 at 16:45; Stop 06/22/17 at 09:42; Status DC Cefazolin Sodium/ Dextrose 50 ml @ 150 mls/hr FAMILY PRACTICE PHYSICIAN IV Last administered on 06/21/17 12:10; Start 06/18/17 at 16:45; Stop 06/21/17 at 16:05; Status DC Metoprolol Tartrate (Lopressor) 12.5 mg FAMILY PRACTICE PHYSICIAN PO ; Start 06/18/17 at 16:45; Stop 06/22/17 at 09:43; Status DC Chlorhexidine Gluconate (Hibiclens 4% Top Soln) 1 applic FAMILY PRACTICE PHYSICIAN TOPICAL Last administered on 06/20/17 21:31; Start 06/18/17 at 16:45; Stop 06/22/17 at 09 :43; Status DC Insulin Human Regular 100 units/ Sodium Chloride 100 ml @ 3 mls/hr TITRATE PRN IV for blood glucose control Last administered on 06/21/17 16:50; Start 06/18 at 16:45; Stop 06/21/17 at 16:06; Status DC Dextrose (D50w (Vial) Inj) 50 ml UNSCH PRN IV PUSH HYPOGLYCEMIA-SEE COMMENTS; Start 06/18/17 at 16:45; Stop 06/21/17 at 16:06; Status DC Atorvastatin Calcium (Lipitor) 40 mg HS PO Last administered on 06/24/17 21: 34; Start 06/18/17 at 21:00 Sodium Biphosphate/ Sodium Phosphate (Fleets Enema (Adult)) 133 ml NOW ONCE RECTAL Last administered on 06/20/17 17:30; Start 06/20/17 at 18:00; Stop 06/20/17 at 18:01; Status DC Heparin Sodium (Porcine) (Heparin Inj) 10,000 units STK-MED ONCE .ROUTE ; Start 06/21/17 at 11:09; Stop 06/22/17 at 09:43; Status DC Vancomycin HCl (Vancomycin Inj) 3,000 mg STK-MED ONCE .ROUTE ; Start 06/21/17 at 11:09; Stop 06/22/17 at 09:43; Status DC Multi-Ingred Electrol/Mineral Irrig 2,000 ml @ As Directed STK-MED ONCE .ROUTE ; Start 06/21/17 at 11:10; Stop 06/22/17 at 09:42; Status DC Potassium Chloride (KCl Inj) 2 meq STK-MED ONCE .ROUTE ; Start 06/21/17 at 11: 10; Stop 06/22/17 at 09:43; Status DC Potassium Chloride (KCl Inj) 2 meq STK-MED ONCE .ROUTE ; Start 06/21/17 at 11: 11; Stop 06/22/17 at 09:43; Status DC Potassium Chloride (KCl Inj) 2 meq STK-MED ONCE .ROUTE ; Start 06/21/17 at 11: 11; Stop 06/22/17 at 09:43; Status DC Sodium Bicarbonate 50 ml @ As Directed STK-MED ONCE .ROUTE ; Start 06/21/17 at 11:11; Stop 06/22/17 at 09:42; Status DC Heparin Sodium (Porcine) (Heparin Inj) 10,000 units STK-MED ONCE .ROUTE ; Start 06/21/17 at 11:12; Stop 06/22/17 at 09:43; Status DC Cefazolin Sodium/ Dextrose 50 ml @ As Directed STK-MED ONCE .ROUTE ; Start at 11:24; Stop 06/22/17 at 09:42; Status DC Methylprednisolone Sodium Succinate (SoluMEDROL INJ) 125 mg STK-MED ONCE .ROUTE Last administered on 06/21/17 12:19; Start 06/21/17 at 12:17; Stop at 09:43; Status DC Sodium Chloride 50 ml @ As Directed STK-MED ONCE .ROUTE ; Start 06/21/17 at 14: 12; Stop 06/22/17 at 09:42; Status DC Dexmedetomidine HCl (Precedex Inj) 200 mcg STK-MED ONCE .ROUTE ; Start at 14:13; Stop 06/21/17 at 14:14; Status DC Cefazolin Sodium (Ancef Inj) 1,000 mg STK-MED ONCE .ROUTE Last administered on 06/21/17 16:00; Start 06/21/17 at 15:51; Stop 06/22/17 at 09:43; Status DC Sodium Chloride (NS Flush) 2 ml BID IV FLUSH Last administered on 06/25/17 09 :20; Start 06/21/17 at 21:00 Sodium Chloride (NS Flush) 2 ml UNSCH PRN IV FLUSH FLUSH AFTER USING IV ACCESS ; Start 06/21/17 at 16:00 Dexmedetomidine HCl 200 mcg/ Sodium Chloride 52 ml @ 4.35 mls/hr TITRATE PRN IV SEDATION Last administered on 06/21/17 16:30; Start 06/21/17 at 16:00; Stop 06/21/17 at 17:30; Status DC Clevidipine 50 ml @ 2 mls/hr TITRATE PRN IV Maintain BP < 140/90 mmHg Last administered on 06/21/17 23:35; Start 06/21/17 at 16:00; Stop 06/22/17 at 09 :42; Status DC Albumin Human 250 ml @ 250 mls/hr UNSCH PRN IV SEE LABEL COMMENTS Last administered on 06/22/17 02:59; Start 06/21/17 at 16:00; Stop 06/22/17 at 09 :42; Status DC Lactated Ringer's 500 ml @ 500 mls/hr Q1H PRN IV SEE LABEL COMMENTS; Start at 15:47; Stop 06/22/17 at 09:42; Status DC Miscellaneous Information (Post-op Orders (for Pharmacy)) STAT ONCE OTHER ; Start 06/21/17 at 16:00; Stop 06/21/17 at 16:18; Status DC Cefazolin Sodium 1000 mg/Sodium Chloride 100 ml @ 200 mls/hr Q8H IV Last administered on 06/23/17 04:00; Start 06/21/17 at 20:00; Stop 06/23/17 at 04 :29; Status DC Pantoprazole Sodium (Protonix) 40 mg DAILY@06 PO Last administered on 06:14; Start 06/22/17 at 06:00 Acetaminophen (Tylenol) 650 mg Q4H PRN PO TEMPERATURE > 101 F; Start 06/21/17 at 16:00 Acetaminophen (Tylenol Supp) 650 mg Q4H PRN RECTAL TEMPERATURE > 101 F; Start 06/21/17 at 16:00; Stop 06/22/17 at 09:42; Status DC Acetaminophen 100 ml @ 400 mls/hr Q6H IV Last administered on 06/22/17 10:54 ; Start 06/21/17 at 17:00; Stop 06/22/17 at 11:14; Status DC Acetaminophen/ Hydrocodone Bitart (Bethel 5-325 Mg) 1 tab Q3H PRN PO PAIN SCALE 1 TO 5 Last administered on 06/23/17 08:55; Start 06/21/17 at 16:00; Stop 06/23/17 at 11:18; Status DC Fentanyl Citrate (fentaNYL INJ) 25 mcg Q1H PRN IV PUSH BREAKTHROUGH PAIN Last administered on 06/22/17 08:56; Start 06/21/17 at 16:00; Stop 06/22/17 at 15 :58; Status DC Ondansetron HCl (Zofran Inj) 4 mg Q6H PRN IV PUSH NAUSEA OR VOMITING; Start at 16:00 Hydralazine HCl (Apresoline Inj) 10 mg Q4H PRN IV PUSH SEE LABEL COMMENTS; Start 06/21/17 at 16:00 Metoprolol Tartrate (Lopressor Inj) 2.5 mg Q1H PRN IV PUSH SEE LABEL COMMENTS; Start 06/21/17 at 16:00; Stop 06/22/17 at 09:43; Status DC Potassium Chloride 100 ml @ 50 mls/hr UNSCH PRN IV SEE LABEL COMMENTS Last administered on 06/21/17 16:56; Start 06/21/17 at 16:00; Stop 06/21/17 at 16 :56; Status DC Potassium Chloride 100 ml @ 50 mls/hr UNSCH PRN IV SEE LABEL COMMENTS; Start 06/21/17 at 16:00; Stop 06/22/17 at 09:42; Status DC Potassium Chloride 100 ml @ 50 mls/hr UNSCH PRN IV SEE LABEL COMMENTS; Start 06/21/17 at 16:00; Stop 06/22/17 at 09:42; Status DC Potassium Chloride (KCl) 20 meq UNSCH PRN PO SEE LABEL COMMENTS; Start at 16:00; Stop 06/22/17 at 09:43; Status DC Potassium Chloride (KCl) 40 meq UNSCH PRN PO SEE LABEL COMMENTS; Start at 16:00; Stop 06/22/17 at 09:43; Status DC Magnesium Sulfate 2 gm/Sodium Chloride 104 ml @ 100 mls/hr UNSCH PRN IV SEE LABEL COMMENTS; Start 06/21/17 at 16:00; Stop 06/22/17 at 09:42; Status DC Magnesium Sulfate 2 gm/Sodium Chloride 104 ml @ 50 mls/hr UNSCH PRN IV SEE LABEL COMMENTS Last administered on 06/22/17 06:25; Start 06/21/17 at 16:00; Stop 06/22/17 at 06:25; Status DC Calcium Chloride 1 gm/Sodium Chloride 110 ml @ 100 mls/hr UNSCH PRN IV SEE LABEL COMMENTS Last administered on 06/21/17 21:11; Start 06/21/17 at 17:00; Stop 06/21/17 at 21:12; Status DC Calcium Chloride (Calcium Chloride Inj) 0.5 gm UNSCH PRN IV PUSH SEE LABEL COMMENTS; Start 06/21/17 at 16:00; Stop 06/22/17 at 09:43; Status DC Insulin Human Regular 100 units/ Sodium Chloride 100 ml @ 3 mls/hr TITRATE PRN IV for blood glucose control; Start 06/21/17 at 16:00; Stop 06/22/17 at 09:42 ; Status DC Dextrose (D50w (Vial) Inj) 50 ml UNSCH PRN IV PUSH HYPOGLYCEMIA-SEE COMMENTS; Start 06/21/17 at 16:00; Stop 06/22/17 at 09:57; Status DC Sodium Bicarbonate (Sodium Bicarbonate 8.4% Inj) 50 meq UNSCH PRN IV PUSH SEE LABEL COMMENTS; Start 06/21/17 at 16:00; Stop 06/22/17 at 09:43; Status DC Sodium Bicarbonate (Sodium Bicarbonate 8.4% Inj) 100 meq UNSCH PRN IV PUSH SEE LABEL COMMENTS; Start 06/21/17 at 16:00; Stop 06/22/17 at 09:43; Status DC Albuterol/ Ipratropium (Duoneb Neb) 1 ampule Q6HR NEB NEB Last administered on 06/22/17 08:35; Start 06/21/17 at 16:00; Stop 06/22/17 at 09:56; Status DC Albuterol/ Ipratropium (Duoneb Neb) 1 ampule Q2HR NEB PRN NEB WHEEZING; Start 06/21/17 at 16:00 Racepinephrine (Racepinephrine 2.25% Neb) 0.5 ml UNSCH X1 PRN NEB STRIDOR; Start 06/21/17 at 16:00; Stop 06/22/17 at 09:43; Status DC Dexmedetomidine HCl 50 ml @ 6.285 mls/ hr TITRATE PRN IV Desired RASS; Start 06/21/17 at 17:30; Stop 06/22/17 at 09:42; Status DC Epinephrine HCl 2 mg/Dextrose 250 ml @ 22.5 mls/hr TITRATE PRN IV Blood Pressure Management Last administered on 06/21/17 16:30; Start 06/21/17 at 17 :45; Stop 06/22/17 at 09:42; Status DC Furosemide (Lasix Inj) 40 mg BID@,18 IV PUSH Last administered on 06/25/17 09:20; Start 06/22/17 at 09:00; Stop 06/25/17 at 10:32; Status DC Albuterol/ Ipratropium (Duoneb Neb) 1 ampule Q6HR WHILE AWAKE NEB NEB Last administered on 06/23/17 12:33; Start 06/22/17 at 14:00; Stop 06/23/17 at 13 :17; Status DC Metoclopramide HCl (Reglan Inj) 10 mg Q6HR IV PUSH Last administered on 05:21; Start 06/22/17 at 12:00; Stop 06/23/17 at 06:01; Status DC Docusate Sodium (Colace) 100 mg BID PO Last administered on 06/25/17 09:21; Start 06/22/17 at 21:00 Multivitamins/ Minerals Therapeutic (Theragran M Tab) 1 tab DAILY PO Last administered on 06/25/17 09:21; Start 06/23/17 at 09:00 Magnesium Hydroxide (Milk Of Mobclixleno Liq) 30 ml DAILY PO Last administered on 06/25/17 09:21; Start 06/22/17 at 10:00 Bisacodyl (Dulcolax Supp) 10 mg UNSCH PRN RECTAL SEE LABEL COMMENTS; Start at 09:45 Polyethylene Glycol (Miralax) 17 gm DAILY PO Last administered on 06/25/17 09 :21; Start 06/23/17 at 09:00 Sennosides (Senokot) 8.6 mg HS PO Last administered on 06/24/17 21:32; Start 06/22/17 at 21:00 Sodium Biphosphate/ Sodium Phosphate (Fleets Enema (Adult)) 118 ml UNSCH PRN RECTAL SEE LABEL COMMENTS; Start 06/22/17 at 09:45 Insulin Aspart (NovoLOG SUPPLEMENTAL SCALE) 1 02,06,10,14,18,22 SQ Last administered on 06/22/17 18:00; Start 06/22/17 at 10:00; Stop 06/23/17 at 06 :01; Status DC Dextrose (D50w (Vial) Inj) 50 ml UNSCH PRN IV PUSH HYPOGLYCEMIA-SEE COMMENTS; Start 06/22/17 at 09:45 Glucagon (Glucagon Inj) 1 mg UNSCH PRN OTHER HYPOGLYCEMIA-SEE COMMENTS; Start 06/22/17 at 09:45 Lactulose (Lactulose Liq) 30 ml DAILY PO Last administered on 06/25/17 09:22 ; Start 06/22/17 at 09:45 Carvedilol (Coreg) 3.125 mg Q12HR PO Last administered on 06/25/17 09:21; Start 06/22/17 at 09:45 Insulin Aspart (NovoLOG SUPPLEMENTAL SCALE) 1 ACHS SLIDING SCALE SQ Last administered on 06/24/17 17:49; Start 06/23/17 at 08:00 Metoprolol Tartrate (Lopressor) 12.5 mg Q12HR PO ; Start 06/22/17 at 16:00; Stop 06/22/17 at 16:00; Status DC Aspirin (Ecotrin Ec) 81 mg DAILY PO ; Start 06/22/17 at 16:00; Stop 06/22/17 at 16:06; Status DC Bisacodyl (Dulcolax Supp) 10 mg ONCE ONCE RECTAL ; Start 06/23/17 at 10:30; Stop 06/23/17 at 10:52; Status DC Sodium Biphosphate/ Sodium Phosphate (Fleets Enema (Adult)) 133 ml ONCE ONCE TX Last administered on 06/23/17 11:00; Start 06/23/17 at 11:00; Stop 06/23 at 11:01; Status DC Acetaminophen/ Hydrocodone Bitart (Bethel 5-325 Mg) 2 tab Q4H PRN PO PAIN SCALE 1 TO 5 Last administered on 06/24/17 08:54; Start 06/23/17 at 11:30; Stop 06/24/17 at 14:23; Status DC Fentanyl Citrate (fentaNYL INJ) 100 mcg STK-MED ONCE IV ; Start 06/21/17 at 12: 00; Stop 06/24/17 at 10:03; Status DC Midazolam HCl (Versed Inj) 10 mg STK-MED ONCE IV ; Start 06/21/17 at 12:00; Stop 06/24/17 at 10:03; Status DC Sodium Chloride 100 ml @ As Directed STK-MED ONCE IV ; Start 06/21/17 at 12:00 ; Stop 06/24/17 at 10:03; Status DC Sodium Chloride 250 ml @ As Directed STK-MED ONCE IV ; Start 06/21/17 at 12:00 ; Stop 06/24/17 at 10:03; Status DC Parenteral Electrolytes 1,000 ml @ As Directed STK-MED ONCE IV ; Start at 12:00; Stop 06/24/17 at 10:03; Status DC Magnesium Sulfate (Magnesium Sulfate Inj) 2 gm STK-MED ONCE IV ; Start at 12:00; Stop 06/24/17 at 10:13; Status DC Vecuronium Redkey (Norcuron 10 Mg Inj) 20 mg STK-MED ONCE IV ; Start 06/21/17 at 12:00; Stop 06/24/17 at 10:13; Status DC Epinephrine HCl (Adrenalin (1:1000) Inj) 4 mg STK-MED ONCE IV ; Start 06/21/17 at 12:00; Stop 06/24/17 at 10:13; Status DC Heparin Sodium (Porcine) (Heparin Inj) 40,000 units STK-MED ONCE SQ ; Start at 12:00; Stop 06/24/17 at 10:13; Status DC Nitroglycerin/ Dextrose (Nitroglycerin-D5W Inj) 50 mg STK-MED ONCE IV ; Start 06/21/17 at 12:00; Stop 06/24/17 at 10:13; Status DC Phenylephrine HCl (Neosynephrine/ NS 1000 Mcg/10ml Syr) 3,000 mcg STK-MED ONCE IV ; Start 06/21/17 at 12:00; Stop 06/24/17 at 10:13; Status DC Ephedrine Sulfate (ePHEDrine/NS 25 MG/5 ML SYR) 25 mg STK-MED ONCE IV ; Start 06/21/17 at 12:00; Stop 06/24/17 at 10:13; Status DC Protamine Sulfate (Protamine Sulfate Inj) 250 mg STK-MED ONCE IV ; Start at 12:00; Stop 06/24/17 at 10:13; Status DC Tranexamic Acid (Cyklokapron Inj) 1,000 mg STK-MED ONCE IV ; Start 06/21/17 at 12:00; Stop 06/24/17 at 10:13; Status DC Acetaminophen/ Hydrocodone Bitart ([place] 5-325 Mg) 1 tab Q4H PRN PO PAIN SCALE 1-5 Last administered on 06/25/17 06:17; Start 06/24/17 at 14:30 Acetaminophen/ Hydrocodone Bitart ([place] 5-325 Mg) 2 tab Q4H PRN PO PAIN SCALE 6-10; Start 06/24/17 at 14:30 Lisinopril (Prinivil) 5 mg DAILY PO Last administered on 06/25/17 09:21; Start 06/24/17 at 15:45; Stop 06/25/17 at 10:32; Status DC Potassium Chloride (KCl) 30 meq ONCE ONCE PO Last administered on 06/24/17 16:48; Start 06/24/17 at 15:45; Stop 06/24/17 at 15:53; Status DC Potassium Phosphate 15 mmol/ Sodium Chloride 155 ml @ 38.75 mls/ hr ONCE ONCE IV ; Start 06/25/17 at 11:00; Stop 06/25/17 at 11:00; Status DC Potassium Chloride (KCl) 30 meq ONCE ONCE PO Last administered on 06/25/17 11:13; Start 06/25/17 at 11:00; Stop 06/25/17 at 11:01; Status DC Potassium Phosphate (K-Phos) 500 mg Q12HR PO Last administered on 06/25/17 11 :16; Start 06/25/17 at 11:00; Stop 06/25/17 at 21:01 Furosemide (Lasix Inj) 40 mg DAILY IV PUSH ; Start 06/26/17 at 09:00 Lisinopril (Prinivil) 2.5 mg DAILY PO ; Start 06/26/17 at 09:00 Amiodarone HCl (Cordarone) 200 mg ONCE ONCE PO Last administered on 12:36; Start 06/25/17 at 12:30; Stop 06/25/17 at 12:31; Status DC Urinary Catheter: No Vascular Central Line Catheter: No A/P Problem List: (1) Multi-vessel coronary artery stenosis ICD Code: I25.10 - Atherosclerotic heart disease of [place] coronary artery without angina pectoris (2) Non-ST elevation VT (NSTEMI) ICD Code: I21.4 - Non-ST elevation (NSTEMI) myocardial infarction Status: Acute (3) Ischemic cardiomyopathy ICD Code: I25.5 - Ischemic cardiomyopathy Status: Chronic (4) s/p recent lap bilateral hernia repair (5) S/P CABG x 3 ICD Code: Z95.1 - Presence of aortocoronary bypass graft Assessment and Plan 81-year-old man with Multivessel coronary artery disease Status post left heart catheterization Status post CABG x 3 06/21/17 Management per cardio thoracic surgery Continue with Coreg, Lipitor ASPIRIN ACEI ON HOLD DUE TO RENAL FUNCTIONS STILL ON LASIX Non-ST elevation VT Status post left heart catheterization Cardiology following and continue with above medical regiment Ischemic cardiomyopathy EF 30-35% by both echo and cath. No evidence for acute CHF. Continue with beta cristine, Lasix 40 IV twice a day Status post laparoscopic bilateral inguinal hernia 06/17/17 Continue current postop care DC TO HOME TODAY FOLLOW UP WITH PCP AND [facility] Discharge Planning [facility] GO[facility] HOME Juan Daniel Perez DO Jun 25, 2017 13:24
[2017-06-26] MEDS ORDERED: FUROSEMIDE 40 MG/4 ML VIAL IV PUSH SCH (09:00)
[2017-06-26] MEDS ORDERED: LISINOPRIL 5 MG TAB PO SCH (09:00)
--- NOTE | 2017-06-26 09:19 | EKG ---
Date Performed: 06/25/2017 Time Performed: 10:24:24 PTAGE: 81 years EKG: Sinus rhythm with PVC(s) Possible faulty V2 - omitted from analysis Prolonged QT interval LVH with secondary repo larization abnormality Extensive ST-T changes may be due to hypertrophy and/or ischemia Compared to p rior tracing no significant change Abnormal ECG PREVIOUS TRACING : 06/22/2017 04.49 DOCTOR: Ashish Escalante Interpretating Date/Time 06/26/2017 09:18:18
== END 2017-06-25 15:00 | disposition home health service (06) | DRG 233 ==
LOC: N07B 17:38 → HCIS 23:12 → HCPC 06-18 23:20 → OBSVTOIN 06-19 11:28 → HCPC 06-21 11:14 → HCVI 06-21 16:34 → HCPC 06-22 10:30
PROVIDERS: ADMIT Hospitalist; ATTEND Hospitalist
PROC: 0YUA4JZ Supplement Bilateral Inguinal Region with Synthetic Substitute, Percutaneous Endoscopic Approach (ICD-10-PCS; 2017-06-16)
PROC: 0JB83ZZ Excision of Abdomen Subcutaneous Tissue and Fascia, Percutaneous Approach (ICD-10-PCS; 2017-06-16)
PROC: 4A023N7 Measurement of Cardiac Sampling and Pressure, Left Heart, Percutaneous Approach (ICD-10-PCS; 2017-06-17)
PROC: B2111ZZ Fluoroscopy of Multiple Coronary Arteries using Low Osmolar Contrast (ICD-10-PCS; 2017-06-17)
PROC: B2151ZZ Fluoroscopy of Left Heart using Low Osmolar Contrast (ICD-10-PCS; 2017-06-17)
PROC: 021109W Bypass Coronary Artery, Two Arteries from Aorta with Autologous Venous Tissue, Open Approach (ICD-10-PCS; 2017-06-21)
PROC: 06BQ4ZZ Excision of Left Saphenous Vein, Percutaneous Endoscopic Approach (ICD-10-PCS; 2017-06-21)
PROC: 5A1221Z Performance of Cardiac Output, Continuous (ICD-10-PCS; 2017-06-21)
PROC: B246ZZ4 Ultrasonography of Right and Left Heart, Transesophageal (ICD-10-PCS; 2017-06-21)
PROC: 02100Z9 Bypass Coronary Artery, One Artery from Left Internal Mammary, Open Approach (ICD-10-PCS; principal; 2017-06-21 11:14)
DX: I97.191 Other postprocedural cardiac functional disturbances following other surgery (principal); I21.4 Non-ST elevation (NSTEMI) myocardial infarction; K40.20 Bilateral inguinal hernia, without obstruction or gangrene, not specified as recurrent; D17.6 Benign lipomatous neoplasm of spermatic cord; I25.10 Atherosclerotic heart disease of native coronary artery without angina pectoris; I25.5 Ischemic cardiomyopathy; Z23 Encounter for immunization; Z96.1 Presence of intraocular lens
CPT/HCPCS: 36430; 71010; 80048; 80053; 80061; 81001; 82550; 82552; 82948; 83036; 83735; 84100; 84439; 84443; 84484; 85025; 85027; 85610; 85730; 86850; 86900; 86901; 86920; 87641; 90686; 90732; 93005; 93306; 93318; 93458; 93567; 93880; 93970; 93998; 94002; 94010; 94150; 94640; 94664; 94667; 94668; 99152; 99153; C1769; C1893; C9248; J0131; J0171; J0690; J1644; J1815; J1817; J1940; J2060; J2250; J2370; J2720; J2765; J2930; J3010; J3370; J3475; J3480; J7030; J7050; J7060; P9016; P9045; Q2038; Q9967